=== PATIENT | male | born 1940 | race Caucasian/White ===

== ENCOUNTER → 2017-01-06 | Outpatient (CLI) | payer MEDICARE, OTHER ==
[~2017-01-06] VITALS: Ht 185.4 cm; Wt 111.1 kg
[~2017-01-06] MED LIST: ALFU10TA11 PO; AMOX-355 PO; BUPIVACAINE 0.5% 30 ML (SENSORCAINE) VIAL ONE; FINA5TAB PO; FLUT50DI IH; HYDR-1231 PO; HYDR-3454 PO; INDO25CA PO; LIDOCAINE 1% INJ 20 ML (XYLOCAINE) VIAL ONE; MELO-195 PO; METF-380 PO; METO10TA3 PO; SIMV40TA4 PO; TRIAMCINOLONE ACET (KENALOG-40) 40 MG/ML 1 ML VIAL ONE
--- OUTSIDE RECORDS SUMMARY | 2017-01-06 12:06 | XMS REPORT | Continuity of Care Document ---
Author Author [facility] Organization [facility] Address Unknown Phone Unavailable Care Team Providers Care Conference Reservationist Name Role Phone MAGED COLBERT DO PCP Insurance Providers Payer Name Policy Number Subscriber Name Relationship Wps Medicare [id number] Mahamed Ledezma N 18 Self / Same As Patient Enter Insurance Name [id number] Mahamed Ledezma 18 Self / Same As Patient Advance Directives Directive Response Recorded Date/Time Advance Directives No 04/08/16 9:49am Health Care Power of Medical Secretary Teacher No 04/08/16 9:49am Organ Donor No 04/08/16 9:49am Resuscitation Status Full Code 04/08/16 9:49am Problems Active Problems Medical Problem Onset Date Status Pain, dental Unknown Acute Medications Current Home Medications Medication Dose Units Route Directions Days/Qty Instructions Start Date Simvastatin 40 Mg 40 Mg Oral Daily 01/17/13 Metformin Hcl (Glucophage) 1,000 Mg 1 Each Oral Twice A Day With Meals 01/17/13 Metoclopramide Hcl (Reglan) 10 Mg 1 Each Oral Qid Prn 01/17/13 Meloxicam (Mobic) 15 Mg 1 Each Oral Daily as needed 01/17/13 Indomethacin 25 Mg 25 Mg Oral Daily as needed 01/17/13 Finasteride 5 Mg 5 Mg Oral Daily 01/17/13 Alfuzosin Hcl 10 Mg 10 Mg Oral Daily 01/17/13 Hydrocodone Bit/Acetaminophen 1 Each 1 Each Oral 01/24/13 Amoxicillin/Clavulanate Potassium 1 Each 1 Each Oral Twice A Day Hydrocodone Bit/Acetaminophen 1 Tab 1-2 Tab Oral Every 6 Hours as needed for Pain 05/18/14 Past Home Medications Medication Directions Ordered Status Fluticasone Propionate 50 Mcg Disk.w.dev, 1 Puff Inhalation Twice A Day 01/17 Discontinued Social History Social History Problem Response Recorded Date/Time Alcohol Use Rarely Uses 05/18/2014 7:36pm Recreational Drug Use No 05/18/2014 7:36pm Recent Foreign Travel No 04/08/2016 9:50am Hospital Discharge Instructions No hospital discharge instructions. Plan of Care Discharge Date 04/08/16 10:31am Instructions/Education Provided DR. BALDERRAMA-POST EPIDURAL INST Prescriptions See Medication Section Functional Status No functional status results. Allergies, Adverse Reactions, Alerts No known allergies. Immunizations No immunization records. Vital Signs Acute Vital Signs Vital Response Date/Time Temperature (Fahrenheit) 96.8 degrees F (97.6 - 99.5) 04/08/2016 9:53am Temperature (Calculated Celsius) 36.00848 degrees C (36.4 - 37.5) 04/08/2016 9:53am Temperature Source Tympanic 04/08/2016 9:53am Pulse Rate (adult) 85 bpm (60 - 90) 04/08/2016 10:30am Respiratory Rate 14 bpm (12 - 24) 04/08/2016 10:30am O2 Sat by Pulse Oximetry 96 % (88 - 100) 04/08/2016 10:30am Blood Pressure 117/83 mm Hg 04/08/2016 10:30am Blood Pressure Mean 92 mm Hg 04/08/2016 9:53am Pain Pain Intensity 6 04/08/2016 10:30am Height (Feet) 6 feet 04/08/2016 9:50am Height (Inches) 1.00 inches 04/08/2016 9:50am Height (Calculated Centimeters) 185.093717 cm 04/08/2016 9:50am Weight (Pounds) 240 pounds 04/08/2016 9:50am Weight (Ounces) 0.0 oz 04/08/2016 9:50am Weight (Calculated Grams) 468701.170 gm 04/08/2016 9:50am Weight (Calculated Kilograms) 108.358821 kilograms 04/08/2016 9:50am Calculated BMI 31.7 04/08/2016 9:50am Results Laboratory Results Test Name Result Units Flags Reference Collection Date/Time Result Date/ Time Comments Glucometer 143 MG/DL H 70-110 04/08/2016 10:03am 04/08/2016 10:12am Procedures No known history of procedures. Encounters Encounter Location Arrival/Admit Date Discharge/Depart Date Attending Provider Departed Clinic [facility] 04/08/16 8:55am 04/08/16 10: 31am CALOS BALDERRAMA MD
[2017-01-06 12:38] VITALS: BP 130/83
[2017-01-06 13:13] VITALS: BP 126/81
--- NOTE | 2017-01-06 14:54 | Pain Medicine-Procedure ---
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 PROCEDURE DETAILS: After obtaining an informed consent from the patient, the patient's chart was reviewed. The patient was brought to the procedure room and placed in a prone position. The back was prepped with antiseptic solution, and under fluoroscopic guidance the sacral ala was identified bilaterally. 0.5 cc of 1% Lidocaine to anesthetize the skin. Two 22 gauge 3.5 inch spinal needles were inserted under fluoroscopic guidance until it got in touch with the bone at the sacral ala bilaterally. Then under right oblique fluoroscopy, the junction of the superior articular process and transverse process on the right at L3, L4, and L5 was identified. 0.5 cc of 1% Lidocaine was used to anesthetize the skin. A 22 gauge 3.5 inch spinal needle was inserted through the skin under fluoroscopic guidance until it came in touch with the bone at the junction between the superior articular process and transverse process at each level. The exact steps were repeated for the left side. After needle aspiration,80 mg of kenalog total was injected in equal alliquots followed by 0.5 cc of 0.5% bupivacaine at each. The patient tolerated the procedure well. The needles were flushed and removed, and a Band-Aide was applied. Complications none CALOS BALDERRAMA MD Jan 06, 2017 2:54 pm
== END ==
LOC: CARD 12:03
PROVIDERS: ATTEND Pain Medicine Pain Medicine
DX: M47.816 Spondylosis without myelopathy or radiculopathy, lumbar region (principal); Z79.899 Other long term (current) drug therapy; Z79.84 Long term (current) use of oral hypoglycemic drugs
CPT/HCPCS: 64493; 64494; 64495; 82962

== ENCOUNTER 2017-06-30 16:38 | Emergency (ER) | payer MEDICARE, OTHER ==
[~2017-06-30] VITALS: Ht 185.4 cm; Wt 99.8 kg
[~2017-06-30 16:38] MED LIST changes: -BUPIVACAINE 0.5% 30 ML (SENSORCAINE) VIAL ONE; -LIDOCAINE 1% INJ 20 ML (XYLOCAINE) VIAL ONE; -TRIAMCINOLONE ACET (KENALOG-40) 40 MG/ML 1 ML VIAL ONE
[2017-06-30] MEDS ORDERED: PRAM1.5T23 PO (17:34)
[2017-06-30] MEDS ORDERED: ASPI-808 PO (17:34)
[2017-06-30] MEDS ORDERED: GLIM4TAB PO (17:34)
[2017-06-30] MEDS ORDERED: ALLO300T2 PO (17:34)
[2017-06-30] MEDS ORDERED: LATA1OIL OU (17:34)
--- NOTE | 2017-06-30 18:09 | ED General ---
General Chief Complaint: Psych/Social Disorder Stated Complaint: ANXIOUS Nursing Triage Note: Pt reports medication used for restless shoulder/upper arms has not been working. pt c/o feeling nervous, unable to get comfortable, and lack of sleep. Nursing Sepsis Screen: No Definite Risk Source of Information: Patient, Family Exam Limitations: No Limitations History of Present Illness Time Seen by Provider: 18:06 Initial Comments This 76-year-old male presents with a complaint that his Mirapex is not working. For the last 2 nights he has had marked difficulty sleeping due to his restless muscles. The patient has been using the Mirapex for some time with good results. He has had no associated fever, chills, headache, stiff neck , nausea, vomiting, or diarrhea. The patient would really very much appreciate a sleeping pill for a night or two until he can follow up closely with his doctor on Monday. Allergies and Home Medications Allergies Coded Allergies: No Known Drug Allergies (Unverified , 05/17/10) Home Medications Alfuzosin Hcl 10 Mg Tab.er.24h, 10 MG PO DAILY, (Reported) Allopurinol 300 Mg Tablet, 300 MG PO DAILY, (Reported) Aspirin 325 Mg Tablet, 325 MG PO DAILY, (Reported) Finasteride 5 Mg Tablet, 5 MG PO DAILY, (Reported) Glimepiride 4 Mg Tablet, 4 MG PO BID, (Reported) Latanoprost 1 Gm Oil, 1 DROP OU DAILY, (Reported) Metformin Hcl 1,000 Mg Tablet, 1 EACH PO BID WITH MEALS, (Reported) Pramipexole Di-HCl 1.5 Mg Tab.er.24h, 1.5 MG PO TID, (Reported) Simvastatin 40 Mg Tablet, 40 MG PO DAILY, (Reported) Constitutional: No chills EENTM: No blurred vision Respiratory: No cough Cardiovascular: No chest pain Gastrointestinal: No abdominal pain Genitourinary: no symptoms reported Musculoskeletal: see HPI, muscle twitching Skin: No change in color, No rash Psychiatric/Neurological: No Symptoms Reported Hematologic/Lymphatic: No Symptoms Reported Immunological/Allergic: no symptoms reported Past [place]-Ykovav-Ymeots Hx Patient Social History Alcohol Use: Denies Use Recreational Drug Use: No Smoking Status: Former Smoker Former Smoker, Quit: Jun 06, 1985 Recent Foreign Travel: No Contact w/Someone Who Travel: No Recent Infectious Disease Expo: No Recent Hopitalizations: No Physical Abuse: No Sexual Abuse: No Mistreated: No Fear: No Immunizations Up To Date Tetanus Booster (TDap): More than 5yrs Surgeries History of Surgeries: Yes (Cabg x 4) Surgeries: CABG Respiratory History of Respiratory Disorde: No Cardiovascular History of Cardiac Disorders: Yes Cardiac Disorders: Coronary Artery Disease Neurological History of Neurological Disord: No (Trigeminal Neuralgia ) Reproductive System Hx Reproductive Disorders: No Gastrointestinal History of Gastrointestinal Di: No Musculoskeletal History of Musculoskeletal Dis: No Endocrine History of Endocrine Disorders: Yes Endocrine Disorders: Diabetes, Non-Insulin dep HEENT History of HEENT Disorders: Yes HEENT Disorders: Cataract Loss of Vision: Denies Hearing Impairment: Denies Cancer History of Cancer: No Psychosocial History of Psychiatric Problem: No Suicide Risk Score: 1 Blood Transfusions History of Blood Disorders: No Reviewed Nursing Assessment Reviewed/Agree w Nursing PMH: Yes Physical Exam Vital Signs Vital Sign - Last 12Hours 06/30/17 17:21 Pulse 74 Resp 16 B/P (MAP) 137/84 Pulse Ox 95 O2 Delivery Room Air Capillary Refill : Less Than 3 Seconds General Appearance: No Apparent Distress, WD/WN HEENT: Normal ENT Inspection Neck: Normal Inspection Respiratory: Lungs Clear Cardiovascular: Regular Rate, Rhythm Gastrointestinal: Normal Bowel Sounds Extremity: Normal Capillary Refill, Normal Range of Motion Neurologic/Psychiatric: Alert, Oriented x3, No Motor/Sensory Deficits Skin: Normal Color, Warm/Dry Progress/Results/Core Measures Results/Orders Vital Signs/I&O Vital Sign - Last 12Hours 06/30/17 17:21 Pulse 74 Resp 16 B/P (MAP) 137/84 Pulse Ox 95 O2 Delivery Room Air Blood Pressure Mean: 101 Progress Note : Time: 18:15 Progress Note I discussed with the patient the use of Mirapex. He will continue with the medication for his restless muscles as prescribed over the weekend. I suggested that perhaps for a night or two he might try a sleeping compound. I asked that he began with Tylenol PM. In the event that didn't work I gave the patient a small amount of Ambien. I asked that he follow-up with his primary child day care center worker on Monday. He was invited to return to the emergency department if any further problems or questions. Departure Impression Impression: Primary Impression: Insomnia Qualified Codes: G47.00 - Insomnia, unspecified Disposition: HOME, SELF-CARE Condition: Unchanged Departure-Patient Inst. Decision time for Depature: 18:17 Referrals: MAGED COLBERT DO (PCP/Family) Primary Care Physician Patient Instructions: Insomnia (DC) Add. Discharge Instructions: Continue with her Mirapex. Dry Tylenol PM for sleep. In the event this does not work U may take an Ambien. Follow-up with Dr. Gonzalez on Monday. Return if any problems or questions. All discharge instructions reviewed with patient and /or family. Voiced understanding. DENNY NEIL MD Jun 30, 2017 18:09
[2017-06-30 18:25] VITALS: BP 126/86
--- OUTSIDE RECORDS SUMMARY | 2017-07-03 08:13 | XMS REPORT | Continuity of Care Document ---
Author Author [facility] Organization [facility] Address Unknown Phone Unavailable Allergies Active Description Code Type Severity Reaction Onset Reported/Identified Relationship to Patient Clinical Status Yes No Known Drug Allergies [id number] Drug Allergy Unknown N/ A 05/17/2010 Medications Problems Date Dx Coded Attending Type Code Diagnosis Diagnosed By 10/05/1499 RAYMOND BALDERRAMA APRN Ot L89.892 10/19/2012 Ot 250.00 DIAB ALYSIA WO COMPL, TYPE II OR UNSPEC TY 10/19/2012 Ot 311 DEPRESSIVE DISORDER NEC 10/19/2012 Ot 327.23 OBSTRUCTIVE SLEEP APNEA (ADULT) (PEDIATR 10/19/2012 Ot 327.51 PERIODIC LIMB MOVEMENT DISORDER 10/19/2012 Ot 401.9 HYPERTENSION NOS 01/24/2013 Ot 250.00 DIAB ALYSIA WO COMPL, TYPE II OR UNSPEC TY 01/24/2013 Ot 478.0 HYPERTRPH NASAL TURBINAT 05/18/2014 Ot 525.9 DENTAL DISORDER NOS 06/26/2015 CALOS BALDERRAMA MD Ot 721.3 LUMBOSACRAL SPONDYLOSIS 06/26/2015 CALOS BALDERRAMA MD Ot 724.6 DISORDERS OF SACRUM 06/26/2015 CALOS BALDERRAMA MD Ot V58.69 OTH MED,LT,CURRENT USE 07/10/2015 CALOS BALDERRAMA MD Ot 722.52 LUMB/LUMBOSAC DISC DEGEN 09/24/2015 RAYMOND BALDERRAMA APRN Ot 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, STAGE 2 04/08/2016 Ot 724.2 LUMBAGO 04/08/2016 Ot 724.4 LUMBOSACRAL NEURITIS NOS 04/08/2016 Ot 441.4 ABDOM AORTIC ANEURYSM 04/08/2016 Ot 562.10 DIVERTICULOSIS COLON (W/O MENT OF HEMORR 04/08/2016 Ot 600.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 04/08/2016 Ot 783.1 ABNORMAL WEIGHT GAIN 04/08/2016 Ot 789.09 ABDOMINAL PAIN, OTHER SPECIFIED SITE 04/08/2016 Ot 478.0 HYPERTRPH NASAL TURBINAT 04/08/2016 Ot 780.79 OTH MALAISE FATIGUE 04/08/2016 Ot V72.63 PRE-PROCEDURAL LABORATORY EXAMINATION 04/08/2016 Ot V72.81 [id number] CARDIOVASCULAR 04/08/2016 Ot V72.83 EXAM PRE-OPERATIVE NEC 04/08/2016 Ot V74.8 SCREEN-BACTERIAL DIS NEC 04/08/2016 CRISTINA HICKEY DO Ot 721.3 LUMBOSACRAL SPONDYLOSIS 04/08/2016 CRISTINA HICKEY DO Ot 726.5 ENTHESOPATHY OF HIP 04/08/2016 CALOS BALDERRAMA MD Ot M47.816 SPONDYLOSIS W/O MYELOPATHY OR RADICULOPA 04/08/2016 CALOS BALDERRAMA MD Ot M51.16 INTERVERTEBRAL DISC DISORDERS W RADICULO 04/08/2016 CALOS BALDERRAMA MD Ot M53.3 SACROCOCCYGEAL DISORDERS, NOT ELSEWHERE 04/08/2016 CALOS BALDERRAMA MD Ot Z79.899 OTHER SAUSAGE CANNER (CURRENT) DRUG THERAPY 04/21/2016 CALOS BALDERRAMA MD Ot M47.816 SPONDYLOSIS W/O MYELOPATHY OR RADICULOPA 04/21/2016 CALOS BALDERRAMA MD Ot M51.16 INTERVERTEBRAL DISC DISORDERS W RADICULO 04/21/2016 CALOS BALDERRAMA MD Ot M53.3 SACROCOCCYGEAL DISORDERS, NOT ELSEWHERE 04/21/2016 CALOS BALDERRAMA MD Ot Z79.899 OTHER SAUSAGE CANNER (CURRENT) DRUG THERAPY 05/10/2016 Ot 724.2 LUMBAGO 05/10/2016 Ot 724.4 LUMBOSACRAL NEURITIS NOS 05/10/2016 Ot 441.4 ABDOM AORTIC ANEURYSM 05/10/2016 Ot 562.10 DIVERTICULOSIS COLON (W/O MENT OF HEMORR 05/10/2016 Ot 600.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 05/10/2016 Ot 783.1 ABNORMAL WEIGHT GAIN 05/10/2016 Ot 789.09 ABDOMINAL PAIN, OTHER SPECIFIED SITE 05/10/2016 Ot 478.0 HYPERTRPH NASAL TURBINAT 05/10/2016 Ot 780.79 OTH MALAISE FATIGUE 05/10/2016 Ot V72.63 PRE-PROCEDURAL LABORATORY EXAMINATION 05/10/2016 Ot V72.81 [id number] CARDIOVASCULAR 05/10/2016 Ot V72.83 EXAM PRE-OPERATIVE NEC 05/10/2016 Ot V74.8 SCREEN-BACTERIAL DIS NEC 05/10/2016 EDELMIRA DIAZ CRISTINA Nidhi Ot 721.3 LUMBOSACRAL SPONDYLOSIS 05/10/2016 EDELMIRA DIAZ CRISTINA Terrell Ot 726.5 ENTHESOPATHY OF HIP 05/12/2016 MAGED COLBERT DO S Ot R07.81 PLEURODYNIA 05/16/2016 MAGED COLBERT DO S Ot R07.81 PLEURODYNIA 05/18/2016 MAGED COLBERT DO S Ot R07.81 PLEURODYNIA 06/16/2016 MAGED COLBERT DO S Ot R07.81 PLEURODYNIA 01/06/2017 Ot 441.4 ABDOM AORTIC ANEURYSM 01/06/2017 Ot 562.10 DIVERTICULOSIS COLON (W/O MENT OF HEMORR 01/06/2017 Ot 600.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 01/06/2017 Ot 783.1 ABNORMAL WEIGHT GAIN 01/06/2017 Ot 789.09 ABDOMINAL PAIN, OTHER SPECIFIED SITE 01/06/2017 Ot 478.0 HYPERTRPH NASAL TURBINAT 01/06/2017 Ot 780.79 OTH MALAISE FATIGUE 01/06/2017 Ot V72.63 PRE-PROCEDURAL LABORATORY EXAMINATION 01/06/2017 Ot V72.81 [id number] CARDIOVASCULAR 01/06/2017 Ot V72.83 EXAM PRE-OPERATIVE NEC 01/06/2017 Ot V74.8 SCREEN-BACTERIAL DIS NEC 01/06/2017 EDELMIRA DIAZ CRISTINA Nidhi Ot 721.3 LUMBOSACRAL SPONDYLOSIS 01/06/2017 CRISTINA HICKEY DO Ot 726.5 ENTHESOPATHY OF HIP 01/06/2017 MAGED COLBERT DO S Ot R07.81 PLEURODYNIA 01/09/2017 CALOS BALDERRAMA MD Ot M47.816 SPONDYLOSIS W/O MYELOPATHY OR RADICULOPA 02/21/2017 CALOS BALDERRAMA MD Ot M47.816 SPONDYLOSIS W/O MYELOPATHY OR RADICULOPA 02/21/2017 CALOS BALDERRAMA MD Ot Z79.84 RESIDENTIAL (CURRENT) USE OF ORAL HYPOGLYC 02/21/2017 CALOS BALDERRAMA MD Ot Z79.899 OTHER SAUSAGE CANNER (CURRENT) DRUG THERAPY Procedures Results Test Result Range Capillary blood glucose measurement by glucometer (mass/volume) - 01/06/17 12: 48 Capillary blood glucose measurement by glucometer (mass/volume) 206 mg/dL 70-110 Encounters ACCT No. Visit Date/Time Discharge Status Pt. Type Provider Facility Loc./Unit Complaint [id number] 06/30/2017 16:39:00 2016 18:24:00 DIS Emergency JOLYNN HIUGERA, DENNY Infante [facility] ER ANXIOUS [id number] 01/06/2017 12:03:00 2016 23:59:59 CLS Outpatient CALOS BALDERRAMA MD [facility] CARD M47.816 [id number] 05/10/2016 15:47:00 2015 23:59:59 CLS Outpatient MAGED COLBERT DO [facility] RAD RIB PAIN R [id number] 04/08/2016 08:55:00 2015 10:31:00 DIS Outpatient CALOS BALDERRAMA MD [facility] CARD SPONDYLOSIS [id number] 09/24/2015 12:26:00 2014 15:00:00 DIS Outpatient RAYMOND BALDERRAMA APRN [facility] WOUNDCARE [id number] 08/09/2015 11:17:00 2014 23:59:59 CLS Outpatient DOTTIE SANTIAGO [facility] QUICK [id number] 07/10/2015 08:23:00 2014 09:40:00 DIS Outpatient CALOS BALDERRAMA MD [facility] CARD DDJD LUMBAR [id number] 06/26/2015 10:19:00 2014 11:47:00 DIS Outpatient CALOS BALDERRAMA MD [facility] CARD SIJD [id number] 05/29/2014 08:52:00 2013 23:59:59 CLS Outpatient CRISTINA HICKEY DO [facility] RAD SEVERE LUMBAR SPONDOLOYSIS RIGHT HIP BURSITIS [id number] 05/18/2014 19:29:00 Document Registration [id number] 01/24/2013 08:47:00 Document Registration [id number] 01/17/2013 11:27:00 Document Registration [id number] 11/14/2012 07:11:00 Document Registration [id number] 10/18/2012 21:14:00 Document Registration [id number] 06/20/2011 09:36:00 Document Registration
== END 2017-06-30 18:24 | disposition home or self-care (01) ==
LOC: EDUNIT# 16:38 → ER 16:39
DX: G47.00 Insomnia, unspecified (principal); E11.9 Type 2 diabetes mellitus without complications; I25.10 Atherosclerotic heart disease of native coronary artery without angina pectoris; Z95.1 Presence of aortocoronary bypass graft; Z87.891 Personal history of nicotine dependence; Z79.82 Long term (current) use of aspirin; Z79.84 Long term (current) use of oral hypoglycemic drugs
CPT/HCPCS: 99283

== ENCOUNTER 2017-07-17 09:57 | Emergency (ER) | payer MEDICARE, OTHER ==
[~2017-07-17] VITALS: Ht 185.4 cm; Wt 99.8 kg
[~2017-07-17 09:57] MED LIST changes: +ALLO300T2 PO; +ASPI-808 PO; +GLIM4TAB PO; +LATA1OIL OU; +PRAM1.5T23 PO
[2017-07-17] MEDS ORDERED: TEMA15CA6 PO (10:47)
--- NOTE | 2017-07-17 10:47 | ED Upper Extremity ---
General Chief Complaint: Upper Extremity Stated Complaint: RLS Nursing Triage Note: PT. STATES HE HAS BEEN DX WITH RLS BUT IT OCCURS IN HIS SHOULDERS BILAT. PT. HAS BEEN HAVING SPASMS IN HIS SHOULDERS WHICH KEEP HIM FROM SLEEPING. THIS HAS BEEN GOING ON FOR ABOUT 3 WEEKS. Nursing Sepsis Screen: No Definite Risk Source: patient Exam Limitations: no limitations History of Present Illness Time seen by provider: 10:43 Initial Comments To ER with reports of inability to sleep and recurrent spasms in the shoulders posteriorly bilaterally. This is been ongoing for nearly 2 months now. His physician has him on Mirapex and recently started baclofen a few weeks ago without improvement. Patient was here in the emergency room in the middle of June and given a prescription for Ambien but denies improvement with the Ambien. He denies improvement with the Mirapex or the baclofen. He took one of his 's oxycodone this morning but still denies improvement. He states this is not a pain, it's just a recurrent twitching in his shoulders. The states that he's been weed eating for the [facility] all summer about 3 hours per day 5 days per week and believes that may have something to do with this. Onset: other Severity: moderate Pain/Injury Location: bilateral shoulder Allergies and Home Medications Allergies Coded Allergies: No Known Drug Allergies (Unverified , 05/17/10) Home Medications Alfuzosin HCl 10 Mg Tab.er.24h, 10 MG PO DAILY, (Reported) Aspirin 325 Mg Tablet, 325 MG PO DAILY, (Reported) Finasteride 5 Mg Tablet, 5 MG PO DAILY, (Reported) Glimepiride 4 Mg Tablet, 4 MG PO BID, (Reported) Latanoprost 1 Gm Oil, 1 DROP OU DAILY, (Reported) Metformin HCl 1,000 Mg Tablet, 1,000 MG PO BID, (Reported) Pramipexole Di-HCl 1.5 Mg Tab.er.24h, 1.5 MG PO TID, (Reported) Simvastatin 40 Mg Tablet, 40 MG PO DAILY, (Reported) Temazepam 15 Mg Capsule, 15 MG PO HS PRN for INSOMNIA, #10 Prescribed by: LAMONT JERONIMO on 07/17/17 1047 Constitutional: see HPI EENTM: see HPI Respiratory: no symptoms reported Cardiovascular: no symptoms reported Genitourinary: no symptoms reported Musculoskeletal: see HPI Skin: no symptoms reported Psychiatric/Neurological: No Symptoms Reported Past Wvxirnu-Czozxt-Cjcsxz Hx Patient Social History Alcohol Use: Denies Use Recreational Drug Use: No Smoking Status: Former Smoker Former Smoker, Quit: Jun 06, 1985 2nd Hand Smoke Exposure: No Recent Foreign Travel: No Contact w/Someone Who Travel: No Recent Infectious Disease Expo: No Recent Hopitalizations: No Immunizations Up To Date Tetanus Booster (TDap): More than 5yrs Surgeries History of Surgeries: Yes (Cabg x 4) Surgeries: CABG Respiratory History of Respiratory Disorde: No Cardiovascular History of Cardiac Disorders: Yes Cardiac Disorders: Coronary Artery Disease Neurological History of Neurological Disord: Yes (Trigeminal Neuralgia ) Reproductive System Hx Reproductive Disorders: No Genitourinary History of Genitourinary Disor: No Gastrointestinal History of Gastrointestinal Di: No Musculoskeletal History of Musculoskeletal Dis: Yes Musculoskeletal Disorders: Spasms Endocrine History of Endocrine Disorders: Yes Endocrine Disorders: Diabetes, Non-Insulin dep HEENT History of HEENT Disorders: Yes HEENT Disorders: Cataract Loss of Vision: Denies Hearing Impairment: Hard of Hearing Cancer History of Cancer: No Psychosocial History of Psychiatric Problem: No Integumentary History of Skin or Integumenta: No Blood Transfusions History of Blood Disorders: No Physical Exam Vital Signs Vital Sign - Last 12Hours 07/17/17 10:20 Temp 97.4 Pulse 66 Resp 18 B/P (MAP) 134/91 Pulse Ox 95 Capillary Refill : Less Than 3 Seconds General Appearance: WD/WN, no apparent distress HEENT: PERRL/EOMI, normal ENT inspection Neck: non-tender, full range of motion Cardiovascular: normal peripheral pulses, no murmur Respiratory: normal breath sounds, no respiratory distress, no accessory muscle use Gastrointestinal: normal bowel sounds, non tender, soft Shoulder: normal inspection, non-tender Elbow/Forearm: normal inspection, non-tender Wrist: Yes normal inspection, Yes non-tender Hand: normal inspection, non-tender Neurologic/Psychiatric: alert, normal mood/affect, oriented x 3 Skin: normal color, warm/dry Progress/Results/Core Measures Results/Orders Lab Results Laboratory Tests Test 07/17/17 11:05 Range/Units White Blood Count 6.5 4.3-11.0 10^3/uL Red Blood Count 4.18 L 4.35-5.85 10^6/uL Hemoglobin 14.1 13.3-17.7 G/DL Hematocrit 43 40-54 % Mean Corpuscular Volume 103 H 80-99 FL Mean Corpuscular Hemoglobin 34 25-34 PG Mean Corpuscular Hemoglobin Concent 33 32-36 G/DL Red Cell Distribution Width 14.5 10.0-14.5 % Platelet Count 286 130-400 10^3/uL Mean Platelet Volume 9.8 7.4-10.4 FL Neutrophils (%) (Auto) 64 42-75 % Lymphocytes (%) (Auto) 23 12-44 % Monocytes (%) (Auto) 10 0-12 % Eosinophils (%) (Auto) 3 0-10 % Basophils (%) (Auto) 1 0-10 % Neutrophils # (Auto) 4.1 1.8-7.8 X 10^3 Lymphocytes # (Auto) 1.5 1.0-4.0 X 10^3 Monocytes # (Auto) 0.6 0.0-1.0 X 10^3 Eosinophils # (Auto) 0.2 0.0-0.3 10^3/uL Basophils # (Auto) 0.0 0.0-0.1 10^3/uL Sodium Level 147 H 135-145 MMOL/L Potassium Level 4.4 3.6-5.0 MMOL/L Chloride Level 114 H 98-107 MMOL/L Carbon Dioxide Level 22 21-32 MMOL/L Anion Gap 11 5-14 MMOL/L Blood Urea Nitrogen 24 H 7-18 MG/DL Creatinine 1.41 H 0.60-1.30 MG/DL Estimat Glomerular Filtration Rate 49 BUN/Creatinine Ratio 17 Glucose Level 147 H 70-105 MG/DL Calcium Level 9.9 8.5-10.1 MG/DL Total Bilirubin 0.5 0.1-1.0 MG/DL Aspartate Amino Transf (AST/SGOT) 39 H 5-34 U/L Alanine Aminotransferase (ALT/SGPT) 36 0-55 U/L Alkaline Phosphatase 108 40-136 U/L Total Protein 8.2 6.4-8.2 GM/DL Albumin 4.5 3.2-4.5 GM/DL My Orders Orders - LAMONT JERONIMO BLANKER OPERATOR Cbc With Automated Diff (07/17/17 10:43) Comprehensive Metabolic Panel (07/17/17 10:43) Thyroid Stimulating Hormone (07/17/17 10:43) Free T4 (Free Thyroxine) (07/17/17 10:43) Saline Lock/Iv-Start (07/17/17 11:55) Ns Iv 1000 Ml (Sodium Chloride 0.9%) (07/17/17 12:00) Lactated Ringers (Lr 1000 Ml Iv Solution (07/17/17 12:00) Vital Signs/I&O Vital Sign - Last 12Hours 07/17/17 10:20 Temp 97.4 Pulse 66 Resp 18 B/P (MAP) 134/91 Pulse Ox 95 Blood Pressure Mean: 105 Departure Impression Impression: Primary Impression: Insomnia Additional Impressions: muscle spasm of the shoulders Volume depletion Disposition: 01 HOME, SELF-CARE Condition: Stable Departure-Patient Inst. Decision time for Depature: 10:46 Referrals: MAGED COLBERT DO (PCP/Family) Primary Care Physician Patient Instructions: NO INSTRUCTIONS GIVEN Add. Discharge Instructions: 1. No weed eating for 7 days 2. Medication as directed All discharge instructions reviewed with patient and/or family. Voiced understanding. Scripts Temazepam (Restoril) 15 Mg Capsule 15 MG PO HS Y for INSOMNIA, #10 CAP Prov: LAMONT JERONIMO APRN 07/17/17 Copy Copies To 1: MAGED COLBERT PETER J APRN Jul 17, 2017 10:47
[2017-07-17] MEDS ORDERED: ALFU10TA11 PO (11:19)
[2017-07-17] MEDS ORDERED: METF1000 PO (11:19)
[2017-07-17] MEDS ORDERED: FINA5TAB6 PO (11:19)
[2017-07-17] MEDS ORDERED: SIMV40TA4 PO (11:19)
[2017-07-17 11:30] LABS: RED BLOOD COUNT 4.18 10^6/uL (4.35-5.85); WHITE BLOOD COUNT 6.5 10^3/uL (4.3-11.0)
[2017-07-17 11:31] LABS: BASOPHILS % (AUTO) 1 % (0-10); EOSINOPHILS # (AUTO) 0.2 10^3/uL (0.0-0.3); EOSINOPHILS % (AUTO) 3 % (0-10); LYMPHOCYTES # (AUTO) 1.5 X 10^3 (1.0-4.0); LYMPHOCYTES % (AUTO) 23 % (12-44); MEAN CORPUSCULAR HEMOGLOBIN 34 PG (25-34); MEAN CORPUSCULAR HGB CONC 33 G/DL (32-36); MEAN CORPUSCULAR VOLUME 103 FL (80-99); MEAN PLATELET VOLUME 9.8 FL (7.4-10.4); MONOCYTES # (AUTO) 0.6 X 10^3 (0.0-1.0); MONOCYTES % (AUTO) 10 % (0-12); NEUTROPHILS # (AUTO) 4.1 X 10^3 (1.8-7.8); NEUTROPHILS % (AUTO) 64 % (42-75); PLATELET COUNT 286 10^3/uL (130-400); RED CELL DISTRIBUTION WIDTH 14.5 % (10.0-14.5)
[2017-07-17 11:53] LABS: ALBUMIN 4.5 GM/DL (3.2-4.5); BILIRUBIN,TOTAL 0.5 MG/DL (0.1-1.0); CALCIUM 9.9 MG/DL (8.5-10.1); CREATININE SERUM 1.41 MG/DL (0.60-1.30); POTASSIUM 4.4 MMOL/L (3.6-5.0); TOTAL PROTEIN 8.2 GM/DL (6.4-8.2)
[2017-07-17] MEDS ORDERED: NS IV 1000 ML 1,000 ML IV SCH (12:00)
[2017-07-17] MEDS ORDERED: LACTATED RINGERS 1,000 ML IV SCH (12:00)
[2017-07-17 12:19] LABS: THYROID STIMULATING HORMONE 3.08 UIU/ML (0.35-4.94)
[2017-07-17 12:45] VITALS: BP 134/91
[2017-07-17] MEDS ORDERED: LACTATED RINGERS 1,000 ML IV ONE (12:52)
== END 2017-07-17 12:45 | disposition home or self-care (01) ==
LOC: EDUNIT# 09:57 → ER 10:00
DX: M62.838 Other muscle spasm (principal); E86.9 Volume depletion, unspecified; G47.00 Insomnia, unspecified; E11.9 Type 2 diabetes mellitus without complications; I25.10 Atherosclerotic heart disease of native coronary artery without angina pectoris; G25.81 Restless legs syndrome; Z95.1 Presence of aortocoronary bypass graft; Z87.891 Personal history of nicotine dependence; Z79.82 Long term (current) use of aspirin; Z79.84 Long term (current) use of oral hypoglycemic drugs; Z87.39 Personal history of other diseases of the musculoskeletal system and connective tissue; Z86.69 Personal history of other diseases of the nervous system and sense organs
CPT/HCPCS: 36415; 80053; 84439; 84443; 85025

== ENCOUNTER 2018-03-29 04:55 | Emergency (ER) | payer MEDICARE, OTHER ==
[~2018-03-29] VITALS: Ht 185.4 cm; Wt 113.4 kg
[~2018-03-29 04:55] MED LIST changes: +BACL10TA PO; +CARV3.122 PO; +FINA5TAB6 PO; +FURO-125 PO; +HYDR-3812 PO; +IPRA3AMP INH; +LATA2.5D5 OU; +LORA1TAB PO; +MAGN400T6 PO; +METF10002 PO; +POLY17PO23 PO; +PRAM1.5T5 PO; +SENN-140 PO; +TEMA15CA6 PO; +TIZA4TAB3 PO
--- OUTSIDE RECORDS SUMMARY | 2018-03-29 05:01 | XMS REPORT | Continuity of Care Document ---
Author Author [facility] Organization [facility] Address Unknown Phone Unavailable Allergies Active Description Code Type Severity Reaction Onset Reported/Identified Relationship to Patient Clinical Status Yes No Known Drug Allergies [id number] N/A N/A Yes No Known Drug Allergies [id number] Drug Allergy Unknown N/A 05/17/2010 Medications There is no data. Problems Date Dx Coded Attending Type Code [...] 780.79 OTH MALAISE FATIGUE 04/08/2016 Ot V72.63 PRE- PROCEDURAL LABORATORY EXAMINATION 04/08/2016 Ot V72.81 EXAM-PRE- OPERATIVE CARDIOVASCULAR 04/08/2016 Ot V72.83 EXAM PRE- OPERATIVE NEC 04/08/2016 Ot V74.8 SCREEN- BACTERIAL DIS NEC 04/08/2016 CRISTINA HICKEY DO Ot 721.3 LUMBOSACRAL SPONDYLOSIS 04/08/2016 CRISTINA HICKEY DO Ot 726.5 ENTHESOPATHY OF HIP 04/08/2016 CALOS BALDERRAMA MD Ot M47.816 SPONDYLOSIS W/O MYELOPATHY OR RADICULOPA 04/08/2016 CALOS BALDERRAMA MD Ot M51.16 INTERVERTEBRAL DISC DISORDERS W RADICULO 04/08/2016 CALOS BALDERRAMA MD Ot M53.3 SACROCOCCYGEAL DISORDERS, NOT ELSEWHERE 04/08/2016 CALOS BALDERRAMA MD Ot Z79.899 OTHER PENITENTIARY (CURRENT) DRUG THERAPY 04/21/2016 CALOS BALDERRAMA MD Ot M47.816 SPONDYLOSIS W/O MYELOPATHY OR RADICULOPA 04/21/2016 CALOS BALDERRAMA MD, Ot M51.16 INTERVERTEBRAL DISC DISORDERS W RADICULO 04/21/2016 CALOS BALDERRAMA MD Ot M53.3 SACROCOCCYGEAL DISORDERS, NOT ELSEWHERE 04/21/2016 CALOS BALDERRAMA MD Ot Z79.899 OTHER PENITENTIARY (CURRENT) DRUG THERAPY 05/10/2016 Ot 724.2 LUMBAGO [...] 780.79 OTH MALAISE FATIGUE 05/10/2016 Ot V72.63 PRE- PROCEDURAL LABORATORY EXAMINATION 05/10/2016 Ot V72.81 EXAM-PRE- OPERATIVE CARDIOVASCULAR 05/10/2016 Ot V72.83 EXAM PRE- OPERATIVE NEC 05/10/2016 Ot V74.8 SCREEN- BACTERIAL DIS NEC 05/10/2016 CRISTINA HICKEY DO Ot 721.3 LUMBOSACRAL SPONDYLOSIS 05/10/2016 CRISTINA HICKEY DO Ot 726.5 ENTHESOPATHY OF HIP 05/12/2016 OREMAGED BEATTY DO S Ot R07.81 PLEURODYNIA 05/16/2016 MAGED GUEVARA DO S Ot R07.81 PLEURODYNIA 05/18/2016 MAGED GUEVARA DO S Ot R07.81 PLEURODYNIA 06/16/2016 MAGED GUEVARA DO S Ot R07.81 PLEURODYNIA 01/06/2017 Ot 441.4 ABDOM AORTIC ANEURYSM 01/06/2017 Ot 562.10 DIVERTICULOSIS COLON (W/O MENT OF HEMORR 01/06/2017 Ot 600.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 01/06/2017 Ot 783.1 ABNORMAL WEIGHT GAIN 01/06/2017 Ot 789.09 ABDOMINAL PAIN, OTHER SPECIFIED SITE 01/06/2017 Ot 478.0 HYPERTRPH NASAL TURBINAT 01/06/2017 Ot 780.79 OTH MALAISE FATIGUE 01/06/2017 Ot V72.63 PRE- PROCEDURAL LABORATORY EXAMINATION 01/06/2017 Ot V72.81 EXAM-PRE- OPERATIVE CARDIOVASCULAR 01/06/2017 Ot V72.83 EXAM PRE- OPERATIVE NEC 01/06/2017 Ot V74.8 SCREEN- BACTERIAL DIS NEC 01/06/2017 CRISTINA HICKEY DO Ot 721.3 LUMBOSACRAL SPONDYLOSIS 01/06/2017 CRISTINA HICKEY DO Ot 726.5 ENTHESOPATHY OF HIP 01/06/2017 MAGED GUEVARA DO S Ot R07.81 PLEURODYNIA 01/09/2017 CALOS BALDERRAMA MD Ot M47.816 SPONDYLOSIS W/O MYELOPATHY OR RADICULOPA 02/21/2017 CALOS BALDERRAMA MD Ot M47.816 SPONDYLOSIS W/O MYELOPATHY OR RADICULOPA 02/21/2017 CALOS BALDERRAMA MD Ot Z79.84 PENITENTIARY (CURRENT) USE OF ORAL HYPOGLYC 02/21/2017 CALOS BALDERRAMA MD Ot Z79.899 OTHER PENITENTIARY (CURRENT) DRUG THERAPY 06/30/2017 DENNY NEIL MD Ot E11.9 TYPE 2 DIABETES MELLITUS WITHOUT COMPLIC 06/30/2017 DENNY NEIL MD Ot F41.9 ANXIETY DISORDER, UNSPECIFIED 06/30/2017 DENNY NEIL MD Ot G47.00 INSOMNIA, UNSPECIFIED 06/30/2017 DENNY NEIL MD Ot I25.10 ATHSCL HEART DISEASE OF [place] CORONARY 06/30/2017 DENNY NEIL MD Ot Z79.82 REELER OPERATOR (CURRENT) USE OF ASPIRIN 06/30/2017 DENNY NEIL MD Ot Z79.84 PENITENTIARY (CURRENT) USE OF ORAL HYPOGLYC 06/30/2017 DENNY NEIL MD Ot Z87.891 PERSONAL HISTORY OF NICOTINE DEPENDENCE 06/30/2017 DENNY NEIL MD Ot Z95.1 PRESENCE OF AORTOCORONARY BYPASS GRAFT 07/06/2017 DENNY NEIL MD Ot E11.9 TYPE 2 DIABETES MELLITUS WITHOUT COMPLIC 07/06/2017 DENNY NEIL MD Ot F41.9 ANXIETY DISORDER, UNSPECIFIED 07/06/2017 DENNY NEIL MD Ot G47.00 INSOMNIA, UNSPECIFIED 07/06/2017 DENNY NEIL MD Ot I25.10 ATHSCL HEART DISEASE OF [place] CORONARY 07/06/2017 DENNY NEIL MD Ot Z79.82 PENITENTIARY (CURRENT) USE OF ASPIRIN 07/06/2017 DENNY NEIL MD Ot Z79.84 REELER OPERATOR (CURRENT) USE OF ORAL HYPOGLYC 07/06/2017 DENNY NEIL MD Ot Z87.891 PERSONAL HISTORY OF NICOTINE DEPENDENCE 07/06/2017 DENNY NEIL MD Ot Z95.1 PRESENCE OF AORTOCORONARY BYPASS GRAFT 07/17/2017 LAMONT JERONIMO APRN Ot E11.9 TYPE 2 DIABETES MELLITUS WITHOUT COMPLIC 07/17/2017 LAMONT JERONIMO APRN Ot E86.9 VOLUME DEPLETION, UNSPECIFIED 07/17/2017 LAMONT JERONIMO APRN Ot G25.81 RESTLESS LEGS SYNDROME 07/17/2017 LAMONT JERONIMO APRN Ot G47.00 INSOMNIA, UNSPECIFIED 07/17/2017 LAMONT JERONIMO APRN Ot I25.10 ATHSCL HEART DISEASE OF [place] CORONARY 07/17/2017 LAMONT JERONIMO APRN Ot M62.838 OTHER MUSCLE SPASM 07/17/2017 LAMONT JERONIMO APRN Ot Z79.82 REELER OPERATOR (CURRENT) USE OF ASPIRIN 07/17/2017 LAMONT JERONIMO APRN Ot Z79.84 PENITENTIARY (CURRENT) USE OF ORAL HYPOGLYC 07/17/2017 LAMONT JERONIMO APRN Ot Z86.69 PERSONAL HISTORY OF DIS OF THE NERVOUS S 07/17/2017 LAMNOT JEROINMO APRN Ot Z87.39 PERSONAL HISTORY OF DISEASES OF THE MS S 07/17/2017 LAMONT JERONIMO APRN Ot Z87.891 PERSONAL HISTORY OF NICOTINE DEPENDENCE 07/17/2017 LAMONT JERONIMO APRN Ot Z95.1 PRESENCE OF AORTOCORONARY BYPASS GRAFT Procedures There is no data. Results Test Result Range Capillary blood glucose measurement by glucometer (mass/volume) - 01/06/17 12: 48 Capillary blood glucose measurement by glucometer (mass/volume) 206 mg/dL 70-110 Complete blood count (CBC) with automated white blood cell (WBC) differential - 07/17/17 11:05 Blood leukocytes automated count (number/volume) 6.5 10*3/uL 4.3-11.0 Blood erythrocytes automated count (number/volume) 4.18 10*6/uL 4.35-5.85 Venous blood hemoglobin measurement (mass/volume) 14.1 g/dL 13.3-17.7 Blood hematocrit (volume fraction) 43 % 40-54 Automated erythrocyte mean corpuscular volume 103 [foz_us] 80-99 Automated erythrocyte mean corpuscular hemoglobin (mass per erythrocyte) 34 pg 25-34 Automated erythrocyte mean corpuscular hemoglobin concentration measurement ( mass/volume) 33 g/dL 32-36 Automated erythrocyte distribution width ratio 14.5 % 10.0-14.5 Automated blood platelet count (count/volume) 286 10*3/uL 130-400 Automated blood platelet mean volume measurement 9.8 [foz_us] 7.4-10.4 Automated blood neutrophils/100 leukocytes 64 % 42-75 Automated blood lymphocytes/100 leukocytes 23 % 12-44 Blood monocytes/100 leukocytes 10 % 0-12 Automated blood eosinophils/100 leukocytes 3 % 0-10 Automated blood basophils/100 leukocytes 1 % 0-10 Blood neutrophils automated count (number/volume) 4.1 10*3 1.8-7.8 Blood lymphocytes automated count (number/volume) 1.5 10*3 1.0-4.0 Blood monocytes automated count (number/volume) 0.6 10*3 0.0-1.0 Automated eosinophil count 0.2 10*3/uL 0.0-0.3 Automated blood basophil count (count/volume) 0.0 10*3/uL 0.0-0.1 Comprehensive metabolic panel - 07/17/17 11:05 Serum or plasma sodium measurement (moles/volume) 147 mmol/L 135-145 Serum or plasma potassium measurement (moles/volume) 4.4 mmol/L 3.6-5.0 Serum or plasma chloride measurement (moles/volume) 114 mmol/L 98-107 Carbon dioxide 22 mmol/L 21-32 Serum or plasma anion gap determination (moles/volume) 11 mmol/L 5-14 Serum or plasma urea nitrogen measurement (mass/volume) 24 mg/dL 7-18 Serum or plasma creatinine measurement (mass/volume) 1.41 mg/dL 0.60-1.30 Serum or plasma urea nitrogen/creatinine mass ratio 17 NRG Serum or plasma creatinine measurement with calculation of estimated glomerular filtration rate 49 NRG Serum or plasma glucose measurement (mass/volume) 147 mg/dL 70-105 Serum or plasma calcium measurement (mass/volume) 9.9 mg/dL 8.5-10.1 Serum or plasma total bilirubin measurement (mass/volume) 0.5 mg/dL 0.1-1.0 Serum or plasma alkaline phosphatase measurement (enzymatic activity/volume) 108 U/L 40-136 Serum or plasma aspartate aminotransferase measurement (enzymatic activity/ volume) 39 U/L 5-34 Serum or plasma alanine aminotransferase measurement (enzymatic activity/volume ) 36 U/L 0-55 Serum or plasma protein measurement (mass/volume) 8.2 g/dL 6.4-8.2 Serum or plasma albumin measurement (mass/volume) 4.5 g/dL 3.2-4.5 THYROID STIMULATING HORMONE - 07/17/17 11:05 THYROID STIMULATING HORMONE 3.08 u[iU]/mL 0.35-4.94 Serum or plasma thyroxine (T4) free measurement (mass/volume) - 07/17/17 11:05 Serum or plasma thyroxine (T4) free measurement (mass/volume) 0.92 ng/dL 0.70-1.48 Complete blood count (CBC) with automated white blood cell (WBC) differential - 03/20/18 08:45 Blood leukocytes automated count (number/volume) 11.2 10*3/uL 4.3-11.0 Blood erythrocytes automated count (number/volume) 3.56 10*6/uL 4.35-5.85 Venous blood hemoglobin measurement (mass/volume) 11.7 g/dL 13.3-17.7 Blood hematocrit (volume fraction) 35 % 40-54 Automated erythrocyte mean corpuscular volume 99 [foz_us] 80-99 Automated erythrocyte mean corpuscular hemoglobin (mass per erythrocyte) 33 pg 25-34 Automated erythrocyte mean corpuscular hemoglobin concentration measurement ( mass/volume) 33 g/dL 32-36 Automated erythrocyte distribution width ratio 14.8 % 10.0-14.5 Automated blood platelet count (count/volume) 422 10*3/uL 130-400 Automated blood platelet mean volume measurement 9.3 [foz_us] 7.4-10.4 Automated blood neutrophils/100 leukocytes 79 % 42-75 Automated blood lymphocytes/100 leukocytes 7 % 12-44 Blood monocytes/100 leukocytes 13 % 0-12 Automated blood eosinophils/100 leukocytes 0 % 0-10 Automated blood basophils/100 leukocytes 0 % 0-10 Blood neutrophils automated count (number/volume) 8.9 10*3 1.8-7.8 Blood lymphocytes automated count (number/volume) 0.8 10*3 1.0-4.0 Blood monocytes automated count (number/volume) 1.5 10*3 0.0-1.0 Automated eosinophil count 0.1 10*3/uL 0.0-0.3 Automated blood basophil count (count/volume) 0.0 10*3/uL 0.0-0.1 PT panel in platelet poor plasma by coagulation assay - 03/20/18 08:45 Prothrombin time (PT) in platelet poor plasma by coagulation assay 14.9 s 12.2-14.7 INR in platelet poor plasma or blood by coagulation assay 1.2 0.8-1.4 Activated partial thromboplastin time (aPTT) in platelet poor plasma bycoagulation assay - 03/20/18 08:45 Activated partial thromboplastin time (aPTT) in platelet poor plasma bycoagulation assay 39 s 24-35 Comprehensive metabolic panel - 03/20/18 08:45 Serum or plasma sodium measurement (moles/volume) 138 mmol/L 135-145 Serum or plasma potassium measurement (moles/volume) 5.2 mmol/L 3.6-5.0 Serum or plasma chloride measurement (moles/volume) 105 mmol/L 98-107 Carbon dioxide 20 mmol/L 21-32 Serum or plasma anion gap determination (moles/volume) 13 mmol/L 5-14 Serum or plasma urea nitrogen measurement (mass/volume) 22 mg/dL 7-18 Serum or plasma creatinine measurement (mass/volume) 1.49 mg/dL 0.60-1.30 Serum or plasma urea nitrogen/creatinine mass ratio 15 NRG Serum or plasma creatinine measurement with calculation of estimated glomerular filtration rate 46 NRG Serum or plasma glucose measurement (mass/volume) 173 mg/dL 70-105 Serum or plasma calcium measurement (mass/volume) 9.7 mg/dL 8.5-10.1 Serum or plasma total bilirubin measurement (mass/volume) 0.3 mg/dL 0.1-1.0 Serum or plasma alkaline phosphatase measurement (enzymatic activity/volume) 106 U/L 40-136 Serum or plasma aspartate aminotransferase measurement (enzymatic activity/ volume) 27 U/L 5-34 Serum or plasma alanine aminotransferase measurement (enzymatic activity/volume ) 23 U/L 0-55 Serum or plasma protein measurement (mass/volume) 7.7 g/dL 6.4-8.2 Serum or plasma albumin measurement (mass/volume) 3.5 g/dL 3.2-4.5 Magnesium - 03/20/18 08:45 Magnesium 1.4 mg/dL 1.8-2.4 Serum or plasma troponin i.cardiac measurement (mass/volume) - 03/20/18 08:45 Serum or plasma troponin i.cardiac measurement (mass/volume) < ng/ mL <0.30 Blood manual differential performed detection - 03/20/18 08:45 Blood monocytes/100 leukocytes 17 % NRG Manual blood segmented neutrophils/100 leukocytes 74 % NRG Blood band neutrophils/100 leukocytes 2 % NRG Manual blood lymphocytes/100 leukocytes 7 % NRG Manual eosinophils/100 leukocytes in nose 0 % NRG Manual blood basophils/100 leukocytes 0 % NRG Blood erythrocyte morphology finding identification NORMAL NRG Myoglobin, serum - 03/20/18 08:45 Myoglobin, serum 122.0 ng/mL 10.0-92.0 Serum or plasma lithium measurement (moles/volume) - 03/20/18 08:45 BNP level 993.0 pg/mL <100.0 Capillary blood glucose measurement by glucometer (mass/volume) - 03/20/18 13: 18 Capillary blood glucose measurement by glucometer (mass/volume) 147 mg/dL 70-110 Capillary blood glucose measurement by glucometer (mass/volume) - 03/20/18 16: 15 Capillary blood glucose measurement by glucometer (mass/volume) 210 mg/dL 70-110 Capillary blood glucose measurement by glucometer (mass/volume) - 03/20/18 20: 39 Capillary blood glucose measurement by glucometer (mass/volume) 336 mg/dL 70-110 Capillary blood glucose measurement by glucometer (mass/volume) - 03/21/18 05: 04 Capillary blood glucose measurement by glucometer (mass/volume) 162 mg/dL 70-110 Complete blood count (CBC) with automated white blood cell (WBC) differential - 03/21/18 05:32 Blood leukocytes automated count (number/volume) 10.4 10*3/uL 4.3-11.0 Blood erythrocytes automated count (number/volume) 3.16 10*6/uL 4.35-5.85 Venous blood hemoglobin measurement (mass/volume) 10.2 g/dL 13.3-17.7 Blood hematocrit (volume fraction) 32 % 40-54 Automated erythrocyte mean corpuscular volume 100 [foz_us] 80-99 Automated erythrocyte mean corpuscular hemoglobin (mass per erythrocyte) 32 pg 25-34 Automated erythrocyte mean corpuscular hemoglobin concentration measurement ( mass/volume) 32 g/dL 32-36 Automated erythrocyte distribution width ratio 14.9 % 10.0-14.5 Automated blood platelet count (count/volume) 403 10*3/uL 130-400 Automated blood platelet mean volume measurement 9.0 [foz_us] 7.4-10.4 Automated blood neutrophils/100 leukocytes 73 % 42-75 Automated blood lymphocytes/100 leukocytes 12 % 12-44 Blood monocytes/100 leukocytes 14 % 0-12 Automated blood eosinophils/100 leukocytes 1 % 0-10 Automated blood basophils/100 leukocytes 0 % 0-10 Blood neutrophils automated count (number/volume) 7.6 10*3 1.8-7.8 Blood lymphocytes automated count (number/volume) 1.3 10*3 1.0-4.0 Blood monocytes automated count (number/volume) 1.4 10*3 0.0-1.0 Automated eosinophil count 0.1 10*3/uL 0.0-0.3 Automated blood basophil count (count/volume) 0.0 10*3/uL 0.0-0.1 Comprehensive metabolic panel - 03/21/18 05:32 Serum or plasma sodium measurement (moles/volume) 137 mmol/L 135-145 Serum or plasma potassium measurement (moles/volume) 4.4 mmol/L 3.6-5.0 Serum or plasma chloride measurement (moles/volume) 103 mmol/L 98-107 Carbon dioxide 21 mmol/L 21-32 Serum or plasma anion gap determination (moles/volume) 13 mmol/L 5-14 Serum or plasma urea nitrogen measurement (mass/volume) 24 mg/dL 7-18 Serum or plasma creatinine measurement (mass/volume) 1.60 mg/dL 0.60-1.30 Serum or plasma urea nitrogen/creatinine mass ratio 15 NRG Serum or plasma creatinine measurement with calculation of estimated glomerular filtration rate 42 NRG Serum or plasma glucose measurement (mass/volume) 157 mg/dL 70-105 Serum or plasma calcium measurement (mass/volume) 9.1 mg/dL 8.5-10.1 Serum or plasma total bilirubin measurement (mass/volume) 0.4 mg/dL 0.1-1.0 Serum or plasma alkaline phosphatase measurement (enzymatic activity/volume) 97 U/L 40-136 Serum or plasma aspartate aminotransferase measurement (enzymatic activity/ volume) 29 U/L 5-34 Serum or plasma alanine aminotransferase measurement (enzymatic activity/volume ) 25 U/L 0-55 Serum or plasma protein measurement (mass/volume) 6.9 g/dL 6.4-8.2 Serum or plasma albumin measurement (mass/volume) 3.2 g/dL 3.2-4.5 Magnesium - 03/21/18 05:32 Magnesium 1.7 mg/dL 1.8-2.4 Lipid 1996 panel - 03/21/18 05:32 Serum or plasma triglyceride measurement (mass/volume) 56 mg/dL <150 Serum or plasma cholesterol measurement (mass/volume) 94 mg/dL < 200 Serum or plasma cholesterol in HDL measurement (mass/volume) 30 mg/ dL 40-60 Cholesterol in LDL [mass/volume] in serum or plasma by direct assay 47 mg/dL 1-129 Serum or plasma cholesterol in VLDL measurement (mass/volume) 11 mg/ dL 5-40 Capillary blood glucose measurement by glucometer (mass/volume) - 03/21/18 10: 52 Capillary blood glucose measurement by glucometer (mass/volume) 221 mg/dL 70-110 Capillary blood glucose measurement by glucometer (mass/volume) - 03/21/18 15: 37 Capillary blood glucose measurement by glucometer (mass/volume) 122 mg/dL 70-110 Capillary blood glucose measurement by glucometer (mass/volume) - 03/21/18 20: 18 Capillary blood glucose measurement by glucometer (mass/volume) 213 mg/dL 70-110 Capillary blood glucose measurement by glucometer (mass/volume) - 03/22/18 04: 48 Capillary blood glucose measurement by glucometer (mass/volume) 171 mg/dL 70-110 Whole blood basic metabolic panel - 03/22/18 05:25 Serum or plasma sodium measurement (moles/volume) 139 mmol/L 135-145 Serum or plasma potassium measurement (moles/volume) 4.7 mmol/L 3.6-5.0 Serum or plasma chloride measurement (moles/volume) 104 mmol/L 98-107 Carbon dioxide 23 mmol/L 21-32 Serum or plasma anion gap determination (moles/volume) 12 mmol/L 5-14 Serum or plasma urea nitrogen measurement (mass/volume) 26 mg/dL 7-18 Serum or plasma creatinine measurement (mass/volume) 1.38 mg/dL 0.60-1.30 Serum or plasma urea nitrogen/creatinine mass ratio 19 NRG Serum or plasma creatinine measurement with calculation of estimated glomerular filtration rate 50 NRG Serum or plasma glucose measurement (mass/volume) 171 mg/dL 70-105 Serum or plasma calcium measurement (mass/volume) 9.4 mg/dL 8.5-10.1 Magnesium - 03/22/18 05:25 Magnesium 2.0 mg/dL 1.8-2.4 Serum or plasma lithium measurement (moles/volume) - 03/22/18 05:25 BNP level 883.5 pg/mL <100.0 Capillary blood glucose measurement by glucometer (mass/volume) - 03/22/18 10: 55 Capillary blood glucose measurement by glucometer (mass/volume) 269 mg/dL 70-110 Capillary blood glucose measurement by glucometer (mass/volume) - 03/22/18 16: 36 Capillary blood glucose measurement by glucometer (mass/volume) 108 mg/dL 70-110 Capillary blood glucose measurement by glucometer (mass/volume) - 03/22/18 20: 22 Capillary blood glucose measurement by glucometer (mass/volume) 193 mg/dL 70-110 Capillary blood glucose measurement by glucometer (mass/volume) - 03/23/18 05: 11 Capillary blood glucose measurement by glucometer (mass/volume) 201 mg/dL 70-110 Capillary blood glucose measurement by glucometer (mass/volume) - 03/23/18 06: 52 Capillary blood glucose measurement by glucometer (mass/volume) 195 mg/dL 70-110 Capillary blood glucose measurement by glucometer (mass/volume) - 03/23/18 11: 20 Capillary blood glucose measurement by glucometer (mass/volume) 215 mg/dL 70-110 Encounters ACCT No. Visit Date/Time Discharge Status Pt. Type Provider Facility Loc./Unit Complaint [id number] 07/17/2017 10:00:00 07/17/2017 12:45:00 DIS Emergency LAMONT JERONIMO APRN [facility] ER RLS [id number] 06/30/2017 16:39:00 06/30/2017 18:24:00 DIS Emergency DENNY NEIL MD [facility] ER ANXIOUS [id number] 01/06/2017 12:03:00 01/06/2017 23:59:59 CLS Outpatient CALOS BALDERRAMA MD [facility] CARD M47.816 [id number] 05/10/2016 15:47:00 05/10/2016 23:59:59 CLS Outpatient MAGED GUEVARA DO S [facility] RAD RIB PAIN R [id number] 04/08/2016 08:55:00 04/08/2016 10:31:00 DIS Outpatient CALOS BALDERRAMA MD [facility] CARD SPONDYLOSIS [id number] 09/24/2015 12:26:00 09/24/2015 15:00:00 DIS Outpatient RAYMOND BALDERRAMA APRN [facility] WOUNDCARE [id number] 08/09/2015 11:17:00 08/09/2015 23:59:59 CLS Outpatient DOTTIE SANTIAGO COMPUTER AIDED DESIGN OPERATOR [facility] QUICK [id number] 07/10/2015 08:23:00 07/10/2015 09:40:00 DIS Outpatient CALOS BALDERRAMA MD [facility] CARD DDJD LUMBAR [id number] 06/26/2015 10:19:00 06/26/2015 11:47:00 DIS Outpatient CALOS BALDERRAMA MD [facility] CARD SIJD [id number] 05/29/2014 08:52:00 05/29/2014 23:59:59 CLS Outpatient EDELMIRA CRISTINA Nidhi [facility] RAD SEVERE LUMBAR SPONDOLOYSIS RIGHT HIP BURSITIS [id number] 03/20/2018 10:03:00 ACT Inpatient SALLYAMAYA DIAZ MAGED S [facility] 4TH CHF,HYPOXIA,BACK PAIN [id number] 05/18/2014 19:29:00 Document Registration [id number] 01/24/2013 08:47:00 Document Registration [id number] 01/17/2013 11:27:00 Document Registration [id number] 11/14/2012 07:11:00 Document Registration [id number] 10/18/2012 21:14:00 Document Registration [id number] 06/20/2011 09:36:00 Document Registration [id number] 08/10/2015 02:19:42 ACT Document Registration [id number] 03/09/2018 07:58:45 Document Registration [id number] 03/05/2018 13:08:15 Document Registration [id number] 01/17/2018 15:20:24 Document Registration [id number] 12/21/2017 07:54:33 Document Registration [id number] 12/05/2017 08:55:06 Document Registration [id number] 12/01/2017 08:29:21 Document Registration 12/201610/18/2017 14:26:06 10/18/2017 23:59:59 [facility] Outpatient Maged Guevara
[2018-03-29] MEDS ORDERED: TIZA4TAB3 (05:14)
[2018-03-29] MEDS ORDERED: LORA1TAB (05:14)
--- NOTE | 2018-03-29 05:22 | ED Back Pain ---
General Stated Complaint: BACK PAIN Source of Information: Patient, Spouse ( DOES MOST OF TALKING) Exam Limitations: Other (PT IS HARD OF HEARING) (HERMELINDA ANDERSON DO) History of Present Illness Date Seen by Provider: March 29, 2018 Time Seen by Provider: 05:03 Initial Comments PT ARRIVES VIA POV FROM HOME C/O CHRONIC LOWER BACK PAIN PT WAS HOSPITALIZED LAST WEEK FOR THIS PROBLEM FROM 03/20-03/23. PT ALSO HAD CHF AND WAS STARTED ON HOME O2 PT STATES HE HAS BEEN ON HYDROCODONE 5/325 1 PILL A DAY FOR THIS CHRONIC PAIN ISSUE. STATES THAT HIS DOSE WAS INCREASED TO 2 PILLS A DAY WHEN HE WAS DISMISSED FROM THE HOSPITAL. LAST DOSE WAS AT 2200 LAST PM. STATES THE MEDICATION HELPS FOR AN HOUR OR TWO AND THEN HIS PAIN RETURNS NO RADIATION OF PAIN NO PARESTHESIAS OR MOTOR DEFICITS NO CHANGE IN BLADDER FUNCTION. HAS BEEN CONSTIPATED WITH THE PAIN MEDICATIONS. NO NEW INJURY TO HIS BACK HAS NOT BEEN EATING MUCH LATELY DUE TO PAIN PT STATES HE WAS SUPPOSED TO HAVE BACK SURGERY AT [facility] 4 STATES YESTERDAY, BUT STATES THEY "BACKED OUT BECAUSE OF HIS BAD HEALTH" AND PT HAS BEEN REFERRED TO , BUT CANNOT GET IN TO SEE ANYONE THERE UNTIL June. PT STATES HE "CAN'T WAIT THAT LONG" PT GETS HOME HEALTH ON MONDAYS, WEDNESDAYS AND FRIDAYS. PT HAS LONG HISTORY OF NON-COMPLIANCE PT HAS AN APPOINTMENT TODAY WITH STORE SALES MANAGER AT DR. GUEVARA'S OFFICE FOR THIS PROBLEM (HERMELINDA ANDERSON DO) Allergies and Home Medications Allergies Coded Allergies: No Known Drug Allergies (Unverified , 05/17/10) Home Medications Alfuzosin HCl 10 Mg Tab.er.24h, 10 MG PO DAILY, (Reported) Aspirin 325 Mg Tablet, 325 MG PO DAILY, (Reported) Baclofen 10 Mg Tablet, 20 MG PO HS Prescribed by: MAGED GUEVARA on 03/23/18 1045 Finasteride 5 Mg Tablet, 5 MG PO DAILY, (Reported) Furosemide 20 Mg Tablet, 20 MG PO DAILY Prescribed by: MAGED GUEVARA on 03/23/18 1045 Hydrocodone Bit/Acetaminophen 1 Tab Tab, 1 EACH PO Q4H PRN for PAIN-MODERATE Prescribed by: MELISSA FREEMAN on 03/29/18 1146 Hydrocodone/Acetaminophen 1 Each Tablet, 0.5 MG PO BID PRN for PAIN-MODERATE, ( Reported) Ipratropium/Albuterol Sulfate 3 Ml Ampul.neb, 3 ML INH RTQ8HR Prescribed by: MAGED GUEVARA on 03/23/18 1045 Latanoprost 2.5 Ml Drops, 1 DROP OU HS, (Reported) Magnesium Oxide 400 Mg Tablet, 400 MG PO BIDPC Prescribed by: MAGED GUEVARA on 03/23/18 1045 Metformin HCl 1,000 Mg Tablet, 1,000 MG PO BID, (Reported) Polyethylene Glycol 3350 17 Gm Powd.pack, 17 GM PO BID Prescribed by: MAGED GUEVARA on 03/23/18 1045 Pramipexole Di-HCl 1.5 Mg Tablet, 1.5 MG PO TID PRN for RESTLESSNESS, (Reported) Sennosides 8.6 Mg Tablet, 8.6 MG PO TID PRN for CONSTIPATION-5TH LINE, (Reported ) Patient Home Medication List Home Medication List Reviewed: Yes (HERMELINDA ANDERSON DO) Constitutional: no symptoms reported Respiratory: no symptoms reported Cardiovascular: no symptoms reported Gastrointestinal: No abdominal pain; constipation, loss of appetite; No nausea , No vomiting Genitourinary: no symptoms reported Musculoskeletal: see HPI, back pain Psychiatric/Neurological: No Symptoms Reported (HERMELINDA ANDERSON DO) Past Pvxoycn-Ftbuho-Ioapat Hx Patient Social History Alcohol Use: Past History (HISTORY OF ABUSE, NO RECENT USE) Recreational Drug Use: No Smoking Status: Former Smoker Type Used: Cigarettes Former Smoker, Quit: Jun 06, 1985 2nd Hand Smoke Exposure: No Recent Foreign Travel: No Contact w/Someone Who Travel: No Recent Hopitalizations: No (HERMELINDA ANDERSON DO) Immunizations Up To Date Tetanus Booster (TDap): More than 5yrs Date of Pneumonia Vaccine: Aug 20, 2016 (HERMELINDA ANDERSON DO) Past Medical History Surgeries: Yes (4 VESSEL CABG; AAA REPAIR WITH STENT) Cardiac, CABG, Vascular Surgery Respiratory: No Currently Using CPAP: No Cardiac: Yes (AAA STENT) Aneurysm, Coronary Artery Disease, High Cholesterol, Hypertension Neurological: Yes (TRIGEMINAL NEURALGIA) Reproductive Disorders: No Genitourinary: Yes (FREQUENCY ) Gastrointestinal: Yes (CONSTIPATION-CURRENT) Musculoskeletal: Yes Chronic Back Pain, Spasms Endocrine: Yes Diabetes, Non-Insulin dep HEENT: Yes Cataract, Glaucoma Loss of Vision: Denies Hearing Impairment: Hard of Hearing Cancer: No Psychosocial: No Integumentary: No Blood Disorders: No (HERMELINDA ANDERSON DO) Family Medical History Patient reports no known family medical history. Physical Exam Vital Signs Vital Signs - First Documented 03/29/18 05:02 Temp 97.0 Pulse 97 Resp 17 B/P (MAP) 131/79 (96) Pulse Ox 93 O2 Delivery Nasal Cannula O2 Flow Rate 3.50 (MELISSA FREEMAN MD) Vital Signs Capillary Refill : (HERMELINDA ANDERSON ) General Appearance: Anxious, Mild Distress (DYSPNEIC--PT RECENTLY STARTED ON HOME O2, AND ARRIVES WITHOUT PORTABLE OXYGEN) Neck: Normal Inspection Cardiovascular: Regular Rate, Rhythm, No Edema Respiratory: Other (DYSPNEIC) Gastrointestinal: Non Tender, Soft Extremity: Non Tender, No Calf Tenderness, No Pedal Edema, Other (PT FREELY MOVES LEGS, AND IS LAYING RECLINED WITH KNEES AND HIPS FLEXED AND LEFT ANKLE CROSSED OVER RIGHT KNEE WITHOUT ANY EVIDENCE OF DISCOMFORT) Neurologic/Psychiatric: Alert, Oriented x3, No Motor/Sensory Deficits, instructional material director II- XII Norm as Tested, Other (ANXIOUS) Skin: Normal Color, Warm/Dry (HERMELINDA ANDERSON ) Progress/Results/Core Measures Results/Orders Lab Results Laboratory Tests Test 03/29/18 05:24 03/29/18 06:41 Range/Units White Blood Count 10.1 4.3-11.0 10^3/uL Red Blood Count 3.68 L 4.35-5.85 10^6/uL Hemoglobin 11.9 L 13.3-17.7 G/DL Hematocrit 37 L 40-54 % Mean Corpuscular Volume 99 80-99 FL Mean Corpuscular Hemoglobin 32 25-34 PG Mean Corpuscular Hemoglobin Concent 33 32-36 G/DL Red Cell Distribution Width 15.0 H 10.0-14.5 % Platelet Count 618 H 130-400 10^3/uL Mean Platelet Volume 8.8 7.4-10.4 FL Neutrophils (%) (Auto) 78 H 42-75 % Lymphocytes (%) (Auto) 9 L 12-44 % Monocytes (%) (Auto) 12 0-12 % Eosinophils (%) (Auto) 1 0-10 % Basophils (%) (Auto) 0 0-10 % Neutrophils # (Auto) 7.9 H 1.8-7.8 X 10^3 Lymphocytes # (Auto) 0.9 L 1.0-4.0 X 10^3 Monocytes # (Auto) 1.3 H 0.0-1.0 X 10^3 Eosinophils # (Auto) 0.1 0.0-0.3 10^3/uL Basophils # (Auto) 0.0 0.0-0.1 10^3/uL Prothrombin Time 15.3 H 12.2-14.7 SEC INR Comment 1.2 0.8-1.4 Activated Partial Thromboplast Time 40 H 24-35 SEC Sodium Level 136 135-145 MMOL/L Potassium Level 4.2 3.6-5.0 MMOL/L Chloride Level 98 98-107 MMOL/L Carbon Dioxide Level 23 21-32 MMOL/L Anion Gap 15 H 5-14 MMOL/L Blood Urea Nitrogen 18 7-18 MG/DL Creatinine 1.36 H 0.60-1.30 MG/DL Estimat Glomerular Filtration Rate 51 BUN/Creatinine Ratio 13 Glucose Level 154 H 70-105 MG/DL Calcium Level 9.9 8.5-10.1 MG/DL Magnesium Level 1.7 L 1.8-2.4 MG/DL Total Bilirubin 0.5 0.1-1.0 MG/DL Aspartate Amino Transf (AST/SGOT) 19 5-34 U/L Alanine Aminotransferase (ALT/SGPT) 22 0-55 U/L Alkaline Phosphatase 112 40-136 U/L Troponin I < 0.30 <0.30 NG/ML B-Type Natriuretic Peptide 870.9 H <100.0 PG/ML Total Protein 8.2 6.4-8.2 GM/DL Albumin 3.6 3.2-4.5 GM/DL Urine Color YELLOW Urine Clarity CLEAR Urine pH 6 5-9 Urine Specific [place] 1.015 L 1.016-1.022 Urine Protein 2+ H NEGATIVE Urine Glucose (UA) NEGATIVE NEGATIVE Urine Ketones 2+ H NEGATIVE Urine Nitrite NEGATIVE NEGATIVE Urine Bilirubin NEGATIVE NEGATIVE Urine Urobilinogen NORMAL NORMAL MG/DL Urine Leukocyte Esterase NEGATIVE NEGATIVE Urine RBC (Auto) NEGATIVE NEGATIVE Urine RBC NONE /HPF Urine WBC RARE /HPF Urine Squamous Epithelial Cells 0-2 /HPF Urine Crystals NONE /LPF Urine Bacteria NEGATIVE /HPF Urine Casts NONE /LPF Urine Mucus SMALL H /LPF Urine Culture Indicated NO (MELISSA FREEMAN MD) My Orders Orders - MELISSA FREEMAN MD Aorta Sono [id number] (03/29/18 07:36) Ct Angio Abdomen/Pelv W (03/29/18 09:25) Saline Lock/Iv-Start (03/29/18 09:25) Ns Iv 500 Ml (Sodium Chloride 0.9%) (03/29/18 09:25) Iohexol Injection (Omnipaque 350 Mg/Ml 1 (03/29/18 09:45) Ns (Ivpb) (Sodium Chloride 0.9%) (03/29/18 09:45) (MELISSA FREEMAN MD) Medications Given in ED Current Medications Medications Dose Ordered Sig/Juan Route Start Time Stop Time Status Last Admin Dose Admin Iohexol 100 ml ONCE ONCE IV 03/29/18 09:45 03/29/18 09:46 DC 03/29/18 09:49 100 ML Orphenadrine Citrate 60 mg ONCE ONCE IV 03/29/18 05:15 03/29/18 05:16 DC 03/29/18 05:41 60 MG Sodium Chloride 250 ml ONCE ONCE IV 03/29/18 09:45 03/29/18 09:46 DC 03/29/18 09:49 80 ML Sodium Chloride 500 ml @ 0 mls/hr Q0M ONCE IV 03/29/18 09:25 03/29/18 09:27 DC 03/29/18 10:17 500 MLS/HR (MELISSA FREEMAN MD) Vital Signs/I&O 03/29/18 03/29/18 05:02 05:02 Temp 97.0 Pulse 97 Resp 17 B/P (MAP) 131/79 (96) Pulse Ox 93 88 O2 Delivery Nasal Cannula Room Air O2 Flow Rate 3.50 (MELISSA FREEMAN MD) Progress Progress Note : Progress Note O2 SAT LOW 86% ON ROOM AIR--UP TO MID 90'S ON 3L/NC AND PT MUCH LESS DYSPNEIC PAIN IMPROVED WITH MEDICATIONS, BUT IS NOT GONE. 0730--CARE TURNED OVER TO DR. FREEMAN. HAVE REVIEWED CT REPORTS AND WILL ORDER ULTRASOUND OF AORTA (HERMELINDA ANDERSON DO) Progress Note : Progress Note 0930: I have seen and evaluated the patient. Patient did receive morphine 5 mg IV and this is helped significantly. I discussed the case with Dr. Guevara. Ultrasound results are equivocal in that ultrasound did not adequately view the aorta. Given the patient's history and risk factors, we will get CT angiogram of the abdomen and pelvis to evaluate the aorta better. Patient and family understand the risk. We will try to minimize contrast and we will give normal saline 500 mL bolus. 1140: CT is complete and results are pending. Pain is still controlled with the 5 mg of morphine received earlier. In discussion with Dr. Guevara earlier, patient was supposed to be taken hydrocodone 5 mg tablets 1 every 4 hours as needed for pain and currently he is taking a half a tablet twice a day. This is not working. I do believe the full dose every 4 hours we'll work effectively as this is a equivalent to the morphine dosing given. This was discussed with the patient and family verbalize understanding. Monitor patient pending CT results. 1230: CT results noted. No findings concerning for aneurysmal leak. I do believe this is related to back pain. Patient is much more comfortable with this. He is still feeling better but the pain is starting to return. We will repeat a dose of morphine IV and I did write prescription to carry him through until at least next Monday for the hydrocodone. Discharged home with return precautions. Patient verbalize understanding instructions and agreement with plan. (MELISSA FREEMAN MD) Initial ECG Impression Date: March 29, 2018 Initial ECG Impression Time: 05:37 Initial ECG Rate: 96 Initial ECG Rhythm: Normal Sinus (RBBB AND LAFB) Initial ECG Comparisson: Unchanged (HERMELINDA ANDERSON DO) Diagnostic Imaging Diagonstic Imaging: CT Plain Films/CT/US/NM/MRI: abdomen, pelvis Comments NAME: MAHAMED CLARK [facility] REC#: [id number] PT STATUS: REG ER : 1940 PHYSICIAN: HERMELINDA ANDERSON DO ADMIT DATE: 03/29/18/ER Signed Date of Exam: 03/29/18 CT ABDOMEN/PELVIS WO PROCEDURE: CT abdomen and pelvis without contrast. TECHNIQUE: Multiple contiguous axial images were obtained through the abdomen and pelvis without the use of intravenous contrast. INDICATION: Chronic back pain. COMPARISON: Comparison is made with the prior examination dated 11/14/2012. FINDINGS: There is cardiomegaly and coronary artery calcification. There is some bibasilar atelectasis and pneumonitis. There is a small hiatal hernia. The liver is normal in size without focal lesions. The gallbladder is unremarkable. There is no biliary ductal dilatation. The spleen is normal. The pancreas and adrenal glands are unremarkable. There are bilateral renal cysts. There is a small nonobstructing left renal calculus. There is a stent graft in the infrarenal abdominal aorta. There is some nonspecific inflammatory induration in the retroperitoneal fat around the aorta. Bowel gas pattern is nonspecific. There is a moderate amount of obtained fecal material likely reflecting some degree of constipation. There is no pelvic mass, adenopathy or free fluid. Bladder is normal. There is no ascites. There is no free air. There are no focal inflammatory changes. There are degenerative changes in the spine. IMPRESSION: Cardiomegaly and coronary artery calcifications. Patchy bibasilar atelectasis and/or pneumonitis. Small hiatal hernia. Bilateral renal cysts with a tiny nonobstructing left renal calculus. Nonspecific inflammatory induration in the retroperitoneal fat around the abdominal aorta. Possibility of infection or leak cannot be entirely excluded. Recommend clinical correlation. Degenerative changes in the spine. Dictated by: Dictated on workstation # [id number] Dict: 03/29/18709 Trans: 03/29/18751 Interpreted by: JOSE ALFREDO CAMPOS MD Electronically signed by: JOSE ALFREDO CAMPOS MD 03/29/18 0752 Diagonstic Imaging: CT Plain Films/CT/US/NM/MRI: other Comments NAME: MAHAMED CLARK Sundar [facility] REC#: [id number] PT STATUS: REG ER : 1940 PHYSICIAN: HERMELINDA ANDERSON DO ADMIT DATE: 03/29/18/ER Signed Date of Exam: 03/29/18 CT THORACIC/LUMBAR SPINE WO INDICATION: Back pain. TECHNIQUE: Multiple contiguous axial images were obtained through the thoracic and lumbar spine without the use of intravenous contrast. Sagittal and coronal reformations were then performed. FINDINGS: The alignment of the thoracic and lumbar spine is grossly normal. The vertebral body heights are well-maintained. There is no spondylolysis or spondylolisthesis. No fractures are identified. There is some prominent osteophytosis along the inferior aspect of the thoracic spine. There is multilevel degenerative disc disease in the lumbar spine as well as some lower lumbar hypertrophic degenerative facet disease. There is some bibasilar atelectasis and pneumonitis. There is no pleural or pericardial fluid. There is a cyst in the left kidney. There is also small nonobstructing stone in the left kidney. There is a cyst in the right kidney. There is a stent graft in the infrarenal abdominal aorta. IMPRESSION: Moderate thoracolumbar spondylosis and multilevel degenerative disc disease in lumbar spine without acute fracture or traumatic subluxation. Bilateral renal cysts and nonobstructing left renal calculus. Bibasilar atelectasis and pneumonitis. Dictated by: Dictated on workstation # [id number] Dict: 03/29/18705 Trans: 03/29/18751 Interpreted by: JOSE ALFREDO CAMPOS MD Electronically signed by: JOSE ALFREDO CAMPOS MD 03/29/18 075 Diagonstic Imaging: Xray Plain Films/CT/US/NM/MRI: chest Comments NAME: MAHAMED CLARK [facility] REC#: [id number] PT STATUS: REG ER : 1940 PHYSICIAN: HERMELINDA ANDERSON DO ADMIT DATE: 03/29/18/ER Signed Date of Exam: 03/29/18 CHEST 1 VIEW, AP/PA ONLY INDICATION: Chronic back pain. Comparison made to prior examination 03/20/2018. FINDINGS: There is cardiomegaly. There has been previous median sternotomy and coronary bypass graft. There is mild venous congestion. Some left basilar atelectasis and pneumonitis. No pleural effusion or pneumothorax. Mediastinum is unremarkable. IMPRESSION: Cardiomegaly and mild venous congestion with some left basilar atelectasis and pneumonitis. Dictated by: Dictated on workstation # [id number] Dict: 03/29/18705 Trans: 03/29/18752 Interpreted by: JOSE ALFREDO CAMPOS MD Electronically signed by: JOSE ALFREDO CAMPOS MD 03/29/18 0753 Diagonstic Imaging: CT, Ultrasound Plain Films/CT/US/NM/MRI: abdomen Comments NAME: MAHAMED CLARK [facility] REC#: [id number] PT STATUS: REG ER : 1940 PHYSICIAN: MELISSA FREEMAN MD ADMIT DATE: 03/29/18/ER Draft Date of Exam:03/29/18 AORTA SONO [id number] INDICATION: History of infrarenal abdominal aortic aneurysm, status post repair. Patient now complains of back pain for 2 weeks. FINDINGS: The proximal, mid and distal abdominal aorta is completely obscured by overlying bowel gas. Aorta is nonvisualized. Iliacs are nonvisualized. IMPRESSION: Aorta is not visualized due to complete obscuration by bowel gas. Dictated on workstation # [id number] Dict: 03/29/18825 Trans: 03/29/18 0852 [facility] [id number] Interpreted by: CHELLY JARRELL MD Electronically signed by: Diagonstic Imaging: CT Plain Films/CT/US/NM/MRI: abdomen, pelvis Comments [facility]IA [facility] [place], [place] NAME: MAHAMED CLARK [facility] REC#: [id number] PT STATUS: REG ER : 1940 PHYSICIAN: MELISSA FREEMAN MD ADMIT DATE: 03/29/18/ER Draft Date of Exam:03/29/18 CT ANGIO ABDOMEN/PELV W INDICATION: Back pain, history of abdominal aortic aneurysm repair. Study interpreted in correlation with nonenhanced study of earlier this same date as well as an exam preoperatively performed 11/14/2012. Pre-dynamic and post-IV contrast enhanced CT angio abdomen and pelvis performed with 3-D reconstructions. FINDINGS: The infrarenal abdominal aortic aneurysmal sac measured 5.1 cm maximal transverse diameter unchanged. There were no findings of endoleak. There is no contrast extravasation. No evidence for aneurysmal rupture. Some very mild induration of the periaortic retroperitoneal fat which may reflect some residua of its recent placement. There is opacification of the renal arteries bilaterally. The stenting or grafting of the bilateral common iliacs which appears to be separable from the infrarenal aortic stent graft itself. There is post therapeutic occlusion of the takeoff of the MAUREEN. Celiac and superior mesenteric as well as their primary branches were all widely patent. The kidneys well-perfused, unobstructed and normal aside from cortical cysts. There is ectasia of bilateral common iliacs with the vessel opposition to the graft itself. Right measured 2.3, left 2.1 cm. Hypogastric branches are calcified but nonaneurysmal. The external iliacs and common femorals atherosclerotic, patent and nonacute. No periaortic or abdominal pelvic fluid collection. No evidence for an abscess. There is no inguinal canal fluid collection or hematoma. Very minimal likely post therapeutic induration of the fat along the left retroperitoneum in the pelvis. There are degenerative changes to the spine. Liver, spleen, adrenals, pancreas unremarkable. There is no gallstone. There is colonic constipation without impaction or obstruction. There is noninflamed diverticulosis. IMPRESSION: Very mild induration of the periaortic and left pelvic retroperitoneal fat probably on a recent postsurgical basis. No fluid collection or abscess. No extraluminal gas. No evidence for a vascular rupture or endoleak. No findings of end organ ischemia. Constipation, noninflamed diverticulosis and benign renal cysts. Degenerative spinal changes with no acute osseous pathology. ER doctor notified that the reports is on line Dictated on workstation # [id number] Dict: 03/29/18 1120 Trans: 03/29/18 1221 [facility] [id number] Interpreted by: SABIHA GONZALEZ Electronically signed by: (MELISSA FREEMAN MD) Departure Impression Primary Impression: Lumbar radiculopathy Disposition: HOME, SELF-CARE Condition: Stable Departure-Patient Inst. Decision time for Depature: 11:44 (MELISSA FREEMAN MD) Referrals: MAGED GUEVARA DO (PCP/Family) Primary Care Physician Patient Instructions: Radiculopathy (DC), Low Back Pain (DC) Add. Discharge Instructions: You may take hydrocodone 5/325 mg tablet 1 every 4 hours as needed for pain. A prescription for this was given to you I will cover for a few more days until he can follow up with your doctor. Either keep appointment today or follow-up with your doctor on Monday. Return for worse pain, fever, vomiting, weakness, breathing problems or other concerns as needed. Your aorta remains enlarged but does not appear to be the problem currently. If you have any worsening, this would be a consideration and you should return immediately. Scripts Hydrocodone Bit/Acetaminophen (Hydrocodone/Acetaminophen 5/325mg Tablet) 1 Tab Tab 1 EACH PO Q4H PRN for PAIN-MODERATE, #24 TAB 0 Refills Prov: MELISSA FREEMAN MD 03/29/18 Copy Copies To 1: MAGED GUEVARA LISA K DO March 29, 2018 05:22 MELISSA FREEMAN MD March 29, 2018 08:56
[2018-03-29 05:31] LABS: BASOPHILS % (AUTO) 0 % (0-10); EOSINOPHILS # (AUTO) 0.1 10^3/uL (0.0-0.3); EOSINOPHILS % (AUTO) 1 % (0-10); HEMATOCRIT 37 % (40-54); HEMOGLOBIN 11.9 G/DL (13.3-17.7); LYMPHOCYTES # (AUTO) 0.9 X 10^3 (1.0-4.0); LYMPHOCYTES % (AUTO) 9 % (12-44); MEAN CORPUSCULAR HEMOGLOBIN 32 PG (25-34); MEAN CORPUSCULAR HGB CONC 33 G/DL (32-36); MEAN CORPUSCULAR VOLUME 99 FL (80-99); MEAN PLATELET VOLUME 8.8 FL (7.4-10.4); MONOCYTES # (AUTO) 1.3 X 10^3 (0.0-1.0); MONOCYTES % (AUTO) 12 % (0-12); NEUTROPHILS # (AUTO) 7.9 X 10^3 (1.8-7.8); NEUTROPHILS % (AUTO) 78 % (42-75); PLATELET COUNT 618 10^3/uL (130-400); RED BLOOD COUNT 3.68 10^6/uL (4.35-5.85); WHITE BLOOD COUNT 10.1 10^3/uL (4.3-11.0)
[2018-03-29] MEDS: morphine INJ 10 MG/ML 1ML (SYR OR VIAL) IVP STA ×3 (05:41→12:47)
[2018-03-29] MEDS: methylPREDNISolone 125 MG (Solu-MEDROL) VIAL IV STA (05:41)
[2018-03-29] MEDS: ORPHENADRINE 60 MG/2 ML (NORFLEX) AMP IV ONE (05:41)
[2018-03-29 05:44] LABS: INR 1.2 (0.8-1.4); PROTHROMBIN TIME PATIENT 15.3 SEC (12.2-14.7)
[2018-03-29 05:59] LABS: ALANINE AMINOTRANSFERASE 22 U/L (0-55); ALBUMIN 3.6 GM/DL (3.2-4.5); ALKALINE PHOSPHATASE 112 U/L (40-136); BILIRUBIN,TOTAL 0.5 MG/DL (0.1-1.0); BUN/CREATININE RATIO 13; CALCIUM 9.9 MG/DL (8.5-10.1); CARBON DIOXIDE 23 MMOL/L (21-32); CHLORIDE 98 MMOL/L (98-107); CREATININE SERUM 1.36 MG/DL (0.60-1.30); GFR ESTIMATED 51; GLUCOSE 154 MG/DL (70-105); MAGNESIUM 1.7 MG/DL (1.8-2.4); POTASSIUM 4.2 MMOL/L (3.6-5.0); SODIUM 136 MMOL/L (135-145); TOTAL PROTEIN 8.2 GM/DL (6.4-8.2)
[2018-03-29 06:50] LABS: BILIRUBIN,URINE NEGATIVE (NEGATIVE); CLARITY,URINE CLEAR; COLOR,URINE YELLOW; GLUCOSE, URINE (UA) NEGATIVE (NEGATIVE); KETONES,URINE 2+ (NEGATIVE); LEUKOCYTE ESTERASE ,URINE NEGATIVE (NEGATIVE); NITRITE,URINE NEGATIVE (NEGATIVE); PH,URINE 6 (5-9); PROTEIN,URINE 2+ (NEGATIVE); UROBILINOGEN,URINE NORMAL (NORMAL)
[2018-03-29 07:10] LABS: BACTERIA,URINE NEGATIVE /HPF; SQUAMOUS EPITHELIAL CELL,UR 0-2 /HPF; WBC,URINE RARE /HPF
--- NOTE | 2018-03-29 07:22 | Diagnostic Imaging Report ---
INDICATION: Back pain. TECHNIQUE: Multiple contiguous axial images were obtained through the thoracic and lumbar spine without the use of intravenous contrast. Sagittal and coronal reformations were then performed. FINDINGS: The alignment of the thoracic and lumbar spine is grossly normal. The vertebral body heights are well-maintained. There is no spondylolysis or spondylolisthesis. No fractures are identified. There is some prominent osteophytosis along the inferior aspect of the thoracic spine. There is multilevel degenerative disc disease in the lumbar spine as well as some lower lumbar hypertrophic degenerative facet disease. There is some bibasilar atelectasis and pneumonitis. There is no pleural or pericardial fluid. There is a cyst in the left kidney. There is also small nonobstructing stone in the left kidney. There is a cyst in the right kidney. There is a stent graft in the infrarenal abdominal aorta. IMPRESSION: Moderate thoracolumbar spondylosis and multilevel degenerative disc disease in lumbar spine without acute fracture or traumatic subluxation. Bilateral renal cysts and nonobstructing left renal calculus. Bibasilar atelectasis and pneumonitis. Dictated by: Dictated on workstation # [id number]
--- NOTE | 2018-03-29 07:30 | Diagnostic Imaging Report ---
PROCEDURE: CT abdomen and pelvis without contrast. TECHNIQUE: Multiple contiguous axial images were obtained through the abdomen and pelvis without the use of intravenous contrast. INDICATION: Chronic back pain. COMPARISON: Comparison is made with the prior examination dated 11/14/2012. FINDINGS: There is cardiomegaly and coronary artery calcification. There is some bibasilar atelectasis and pneumonitis. There is a small hiatal hernia. The liver is normal in size without focal lesions. The gallbladder is unremarkable. There is no biliary ductal dilatation. The spleen is normal. The pancreas and adrenal glands are unremarkable. There are bilateral renal cysts. There is a small nonobstructing left renal calculus. There is a stent graft in the infrarenal abdominal aorta. There is some nonspecific inflammatory induration in the retroperitoneal fat around the aorta. Bowel gas pattern is nonspecific. There is a moderate amount of obtained fecal material likely reflecting some degree of constipation. There is no pelvic mass, adenopathy or free fluid. Bladder is normal. There is no ascites. There is no free air. There are no focal inflammatory changes. There are degenerative changes in the spine. IMPRESSION: Cardiomegaly and coronary artery calcifications. Patchy bibasilar atelectasis and/or pneumonitis. Small hiatal hernia. Bilateral renal cysts with a tiny nonobstructing left renal calculus. Nonspecific inflammatory induration in the retroperitoneal fat around the abdominal aorta. Possibility of infection or leak cannot be entirely excluded. Recommend clinical correlation. Degenerative changes in the spine. Dictated by: Dictated on workstation # [id number]
--- NOTE | 2018-03-29 07:53 | Diagnostic Imaging Report ---
INDICATION: Chronic back pain. Comparison made to prior examination 03/20/2018. FINDINGS: There is cardiomegaly. There has been previous median sternotomy and coronary bypass graft. There is mild venous congestion. Some left basilar atelectasis and pneumonitis. No pleural effusion or pneumothorax. Mediastinum is unremarkable. IMPRESSION: Cardiomegaly and mild venous congestion with some left basilar atelectasis and pneumonitis. Dictated by: Dictated on workstation # [id number]
--- NOTE | 2018-03-29 08:53 | Diagnostic Imaging Report ---
INDICATION: History of infrarenal abdominal aortic aneurysm, status post repair. Patient now complains of back pain for 2 weeks. FINDINGS: The proximal, mid and distal abdominal aorta is completely obscured by overlying bowel gas. Aorta is nonvisualized. Iliacs are nonvisualized. IMPRESSION: Aorta is not visualized due to complete obscuration by bowel gas. Dictated by: Dictated on workstation # [id number]
[2018-03-29] MEDS: IOHEXOL 350 MG/ML 100 ML (OMNIPAQUE 350) VIAL IV ONE (09:49)
[2018-03-29] MEDS: NS 250 ML (IVPB) BAG IV ONE (09:49)
[2018-03-29] MEDS: NS IV 500 ML 500 ML IV ONE (10:17)
[2018-03-29] MEDS ORDERED: ACHD5005 PO (11:46)
--- NOTE | 2018-03-29 12:10 | Diagnostic Imaging Report ---
INDICATION: Back pain, history of abdominal aortic aneurysm repair. Study interpreted in correlation with nonenhanced study of earlier this same date as well as an exam preoperatively performed 11/14/2012. Pre-dynamic and post-IV contrast enhanced CT angio abdomen and pelvis performed with 3-D reconstructions. FINDINGS: The infrarenal abdominal aortic aneurysmal sac measured 5.1 cm maximal transverse diameter unchanged. There were no findings of endoleak. There is no contrast extravasation. No evidence for aneurysmal rupture. Some very mild induration of the periaortic retroperitoneal fat which may reflect some residua of its recent placement. There is opacification of the renal arteries bilaterally. The stenting or grafting of the bilateral common iliacs which appears to be separable from the infrarenal aortic stent graft itself. There is post therapeutic occlusion of the takeoff of the MAUREEN. Celiac and superior mesenteric as well as their primary branches were all widely patent. The kidneys well-perfused, unobstructed and normal aside from cortical cysts. There is ectasia of bilateral common iliacs with the vessel opposition to the graft itself. Right measured 2.3, left 2.1 cm. Hypogastric branches are calcified but nonaneurysmal. The external iliacs and common femorals atherosclerotic, patent and nonacute. No periaortic or abdominal pelvic fluid collection. No evidence for an abscess. There is no inguinal canal fluid collection or hematoma. Very minimal likely post therapeutic induration of the fat along the left retroperitoneum in the pelvis. There are degenerative changes to the spine. Liver, spleen, adrenals, pancreas unremarkable. There is no gallstone. There is colonic constipation without impaction or obstruction. There is noninflamed diverticulosis. IMPRESSION: Very mild induration of the periaortic and left pelvic retroperitoneal fat probably on a recent postsurgical basis. No fluid collection or abscess. No extraluminal gas. No evidence for a vascular rupture or endoleak. No findings of end organ ischemia. Constipation, noninflamed diverticulosis and benign renal cysts. Degenerative spinal changes with no acute osseous pathology. ER doctor notified that the reports is on line Dictated by: Dictated on workstation # [id number]
[2018-03-29 12:57] VITALS: BP 132/85
== END 2018-03-29 12:57 | disposition home or self-care (01) ==
LOC: EDUNIT# 04:55 → ER 04:57
DX: M54.16 Radiculopathy, lumbar region (principal); I25.10 Atherosclerotic heart disease of native coronary artery without angina pectoris; E78.00 Pure hypercholesterolemia, unspecified; I10 Essential (primary) hypertension; E11.9 Type 2 diabetes mellitus without complications; Z87.19 Personal history of other diseases of the digestive system; Z79.82 Long term (current) use of aspirin; Z79.84 Long term (current) use of oral hypoglycemic drugs; Z87.891 Personal history of nicotine dependence; Z95.1 Presence of aortocoronary bypass graft; Z95.5 Presence of coronary angioplasty implant and graft
CPT/HCPCS: 36415; 71045; 72128; 72131; 74174; 74176; 76775; 80053; 81000; 83735; 83880; 84484; 85025; 85610; 85730; 93005; 93041; 96361; 96372; 96374; 96375; 96376

== ENCOUNTER 2018-04-16 12:47 | Outpatient (CLI) | payer MEDICARE, OTHER ==
[~2018-04-16] VITALS: Ht 185.4 cm; Wt 103.2 kg
[~2018-04-16 12:47] MED LIST changes: +ACHD5005 PO; +LORA1TAB; +TIZA4TAB3
[2018-04-16 13:06] VITALS: BP 89/52
== END 2018-04-16 13:31 | disposition home or self-care (01) ==
LOC: PREOP 12:47
PROVIDERS: ATTEND Orthopaedic Surgery
DX: Z01.818 Encounter for other preprocedural examination (principal); Z11.2 Encounter for screening for other bacterial diseases; M48.061 Spinal stenosis, lumbar region without neurogenic claudication
CPT/HCPCS: 87081

== ENCOUNTER 2018-04-23 10:39 | Inpatient (IN) | payer MEDICARE, OTHER ==
[~2018-04-23] VITALS: Ht 185.4 cm; Wt 110.8 kg
[2018-04-23 10:42] VITALS: BP 108/74
[2018-04-23] MEDS ORDERED: ceFAZolin 2 GM IV Premixed 50 ML IV ONE (10:45)
--- OUTSIDE RECORDS SUMMARY | 2018-04-23 10:45 | XMS REPORT | Continuity of Care Document ---
Author Author [facility] Organization [facility] Address Unknown Phone Unavailable Allergies Active Description Code Type Severity Reaction Onset Reported/Identified Relationship to Patient Clinical Status Yes No Known Drug Allergies [id number] N/A N/A Yes No Known Drug Allergies [id number] Drug Allergy Unknown N/A 05/17/2010 Medications There [...] DO Ot 726.5 ENTHESOPATHY OF HIP 05/12/2016 ORESAIDA BEATTY DO S Ot R07.81 PLEURODYNIA 05/16/2016 SAIDA GUEVARA DO S Ot R07.81 PLEURODYNIA 05/18/2016 SAIDA GUEVARA DO S Ot R07.81 PLEURODYNIA 06/16/2016 SAIDA GUEVARA DO S Ot R07.81 PLEURODYNIA 01/06/2017 [...] DO Ot 726.5 ENTHESOPATHY OF HIP 01/06/2017 SAIDA GUEVARA DO S Ot R07.81 PLEURODYNIA 01/09/2017 [...] MD Ot I25.10 ATHSCL HEART DISEASE OF [place] CORONARY 06/30/2017 DENNY NEIL MD Ot Z79.82 RETAIL PRODUCT DEMO SPECIALIST (CURRENT) USE OF ASPIRIN 06/30/2017 DENNY NEIL [...] MD Ot I25.10 ATHSCL HEART DISEASE OF [place] CORONARY 07/06/2017 DENNY NEIL MD Ot Z79.82 PENITENTIARY (CURRENT) USE OF ASPIRIN 07/06/2017 DENNY NEIL MD Ot Z79.84 RETAIL PRODUCT DEMO SPECIALIST (CURRENT) USE OF ORAL HYPOGLYC 07/06/2017 DENNY [...] APRN Ot I25.10 ATHSCL HEART DISEASE OF [place] CORONARY 07/17/2017 LAMONT JERONIMO APRN Ot M62.838 OTHER MUSCLE SPASM 07/17/2017 LAMONT JERONIMO APRN Ot Z79.82 RETAIL PRODUCT DEMO SPECIALIST (CURRENT) USE OF ASPIRIN 07/17/2017 LAMONT JERONIMO APRN Ot Z79.84 PENITENTIARY (CURRENT) USE OF ORAL HYPOGLYC 07/17/2017 LAMONT JERONIMO APRN Ot Z86.69 PERSONAL HISTORY OF DIS OF THE NERVOUS S 07/17/2017 LAMONT JERONIMO APRN Ot Z87.39 PERSONAL HISTORY OF DISEASES OF THE MS S 07/17/2017 LAMONT JERONIMO APRN Ot Z87.891 PERSONAL HISTORY OF NICOTINE DEPENDENCE 07/17/2017 LAMONT JERONIMO APRN Ot Z95.1 PRESENCE OF AORTOCORONARY BYPASS GRAFT 03/23/2018 GISSELLE GUEVARA DOQUELINE S Ot E11.22 TYPE 2 DIABETES MELLITUS W DIABETIC GM 03/23/2018 GISSELLE GUEVARA DOQUELINE S Ot E11.9 TYPE 2 DIABETES MELLITUS WITHOUT COMPLIC 03/23/2018 GISSELLE GUEVARA DOQUELINE S Ot E83.42 HYPOMAGNESEMIA 03/23/2018 FILEMON DIAZ SAIDA S Ot E87.5 HYPERKALEMIA 03/23/2018 GISSELLE GUEVARA DOQUELINE S Ot 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 03/23/2018 GISSELLE GUEVARA DOQUELINE S Ot H91.90 UNSPECIFIED HEARING LOSS, UNSPECIFIED EA 03/23/2018 FILEMON DIAZ SAIDA S Ot I10 ESSENTIAL (PRIMARY) HYPERTENSION 03/23/2018 VIRAJNDAMAYA DIAZ SAIDA S Ot I12.9 HYPERTENSIVE CHRONIC KIDNEY DISEASE W ST 03/23/2018 FILEMON DIAZ SAIDA S Ot I25.10 ATHSCL HEART DISEASE OF [place] CORONARY 03/23/2018 GISSELLE GUEVARA DOQUELINE S Ot I49.3 VENTRICULAR PREMATURE DEPOLARIZATION 03/23/2018 GISSELLE GUEVARA DOQUELINE S Ot J81.0 ACUTE PULMONARY EDEMA 03/23/2018 GISSELLE GUEVARA DOQUELINE S Ot K59.03 DRUG INDUCED CONSTIPATION 03/23/2018 VIRAJJOANAMAYA SAIDA S Ot M25.511 PAIN IN RIGHT SHOULDER 03/23/2018 VIRAJROGERIO DIAZ SAIDA S Ot M25.512 PAIN IN LEFT SHOULDER 03/23/2018 SALLYAMAYA DIANA DIAZLINE S Ot M62.830 MUSCLE SPASM OF BACK 03/23/2018 DIANA GUEVARA DOLINE S Ot N18.9 CHRONIC KIDNEY DISEASE, UNSPECIFIED 03/23/2018 DIANA GUEVARA DOLINE S Ot N28.9 DISORDER OF KIDNEY AND URETER, UNSPECIFI 03/23/2018 DIANA GUEVARA DOLINE S Ot R06.03 ACUTE RESPIRATORY DISTRESS 03/23/2018 DIANA GUEVARA DOLINE S Ot R09.02 HYPOXEMIA 03/23/2018 DIANA GUEVARA DOLINE S Ot R35.0 FREQUENCY OF MICTURITION 03/23/2018 DIANA GUEVARA DOLINE S Ot R45.1 RESTLESSNESS AND AGITATION 03/23/2018 DIANA GUEVARA DOLINE S Ot T40.2X5A ADVERSE EFFECT OF OTHER OPIOIDS, INITIAL 03/23/2018 DIANA GUEVARA DOLINE S Ot Z79.84 PENITENTIARY (CURRENT) USE OF ORAL HYPOGLYC 03/23/2018 SAIDA GUEVARA DO S Ot Z91.19 PATIENT'S NONCOMPLIANCE W [facility] TR 03/23/2018 SAIDA GUEVARA DO S Ot Z95.1 PRESENCE OF AORTOCORONARY BYPASS GRAFT 03/28/2018 SAIDA GUEVRAA DO S Ot E11.22 TYPE 2 DIABETES MELLITUS W DIABETIC GM 03/28/2018 DIANA GUEVARA DOLINE S Ot E83.42 HYPOMAGNESEMIA 03/28/2018 DIANA GUEVARA DOLINE S Ot E87.5 HYPERKALEMIA 03/28/2018 SAIDA GUEVARA DO S Ot 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 03/28/2018 SAIDA GUEVARA DO S Ot I12.9 HYPERTENSIVE CHRONIC KIDNEY DISEASE W ST 03/28/2018 DIANA GUEVARA DOLINE S Ot I25.10 ATHSCL HEART DISEASE OF [place] CORONARY 03/28/2018 SAIDA GUEVARA DO S Ot I49.3 VENTRICULAR PREMATURE DEPOLARIZATION 03/28/2018 FILEMON DIAZ SAIDA S Ot J81.0 ACUTE PULMONARY EDEMA 03/28/2018 VIRAJROGERIO DIAZDIANASAIDA S Ot K59.03 DRUG INDUCED CONSTIPATION 03/28/2018 SALLYAMAYA DIAZDIANASAIDA S Ot M25.511 PAIN IN RIGHT SHOULDER 03/28/2018 VIRAJROGERIO DIAZDIANASAIDA S Ot M25.512 PAIN IN LEFT SHOULDER 03/28/2018 VIRAJROGERIO DIAZDIANASAIDA S Ot M62.830 MUSCLE SPASM OF BACK 03/28/2018 SALLYAMAYA DIANA DIAZLINE S Ot N18.9 CHRONIC KIDNEY DISEASE, UNSPECIFIED 03/28/2018 SALLYAMAYA DIAZDIANASAIDA S Ot N28.9 DISORDER OF KIDNEY AND URETER, UNSPECIFI 03/28/2018 SALLYAMAYA DIAZDIANASAIDA S Ot R06.03 ACUTE RESPIRATORY DISTRESS 03/28/2018 SALLYAMAYA DIAZDIANASAIDA S Ot R09.02 HYPOXEMIA 03/28/2018 SALLYAMAYA DIAZDIANASAIDA S Ot R35.0 FREQUENCY OF MICTURITION 03/28/2018 DIANA GUEVARA DOLINE S Ot R45.1 RESTLESSNESS AND AGITATION 03/28/2018 SALLYAMAYA DIANA DIAZLINE S Ot T40.2X5A ADVERSE EFFECT OF OTHER OPIOIDS, INITIAL 03/28/2018 DIANA GUEVARA DOLINE S Ot Z79.84 RETAIL PRODUCT DEMO SPECIALIST (CURRENT) USE OF ORAL HYPOGLYC 03/28/2018 DIANA GUEVARA DOLINE S Ot Z91.19 PATIENT'S NONCOMPLIANCE W [facility] TR 03/28/2018 SAIDA GUEVARA DO S Ot Z95.1 PRESENCE OF AORTOCORONARY BYPASS GRAFT 03/28/2018 DIANA GUEVARA DOLINE S Ot E11.22 TYPE 2 DIABETES MELLITUS W DIABETIC GM 03/28/2018 DIANA GUEVARA DOLINE S Ot E83.42 HYPOMAGNESEMIA 03/28/2018 DIANA GUEVARA DOLINE S Ot E87.5 HYPERKALEMIA 03/28/2018 DIANA GUEVARA DOLINE S Ot 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 03/28/2018 DIANA GUEVARA DOLINE S Ot I12.9 HYPERTENSIVE CHRONIC KIDNEY DISEASE W ST 03/28/2018 DIANA GUEVARA DOLINE S Ot I25.10 ATHSCL HEART DISEASE OF [place] CORONARY 03/28/2018 DIANA GUEVARA DOLINE S Ot I49.3 VENTRICULAR PREMATURE DEPOLARIZATION 03/28/2018 DIANA GUEVARA DOLINE S Ot J81.0 ACUTE PULMONARY EDEMA 03/28/2018 DIANA GUEVARA DOLINE S Ot K59.03 DRUG INDUCED CONSTIPATION 03/28/2018 DIANA GUEVARA DOLINE S Ot M25.511 PAIN IN RIGHT SHOULDER 03/28/2018 DIANA GUEVARA DOLINE S Ot M25.512 PAIN IN LEFT SHOULDER 03/28/2018 DIANA GUEVARA DOLINE S Ot M62.830 MUSCLE SPASM OF BACK 03/28/2018 DIANA GUEVARA DOLINE S Ot N18.9 CHRONIC KIDNEY DISEASE, UNSPECIFIED 03/28/2018 DIANA GUEVARA DOLINE S Ot N28.9 DISORDER OF KIDNEY AND URETER, UNSPECIFI 03/28/2018 DIANA GUEVARA DOLINE S Ot R06.03 ACUTE RESPIRATORY DISTRESS 03/28/2018 DIANA GUEVARA DOLINE S Ot R09.02 HYPOXEMIA 03/28/2018 DIANA GUEVARA DOLINE S Ot R35.0 FREQUENCY OF MICTURITION 03/28/2018 DIANA GUEVARA DOLINE S Ot R45.1 RESTLESSNESS AND AGITATION 03/28/2018 DIANA GUEVARA DOLINE S Ot T40.2X5A ADVERSE EFFECT OF OTHER OPIOIDS, INITIAL 03/28/2018 DIANA GUEVARA DOLINE S Ot Z79.84 PENITENTIARY (CURRENT) USE OF ORAL HYPOGLYC 03/28/2018 DIANA GUEVARA DOLINE S Ot Z91.19 PATIENT'S NONCOMPLIANCE W [facility] MED[facility] TR 03/28/2018 DIANA GUEVARA DOLINE S Ot Z95.1 PRESENCE OF AORTOCORONARY BYPASS GRAFT 04/02/2018 LYDIA HIGUERA, MELISSA Williamson Ot E11.9 TYPE 2 DIABETES MELLITUS WITHOUT COMPLIC 04/02/2018 LYDIA HIGUERA, MELISSA Williamson Ot E78.00 PURE HYPERCHOLESTEROLEMIA, UNSPECIFIED 04/02/2018 LYDIA HIGUERA, MELISSA Williamson Ot I10 ESSENTIAL (PRIMARY) HYPERTENSION 04/02/2018 MELISSA FREEMAN MD Ot I25.10 ATHSCL HEART DISEASE OF [place] CORONARY 04/02/2018 MELISSA FREEMAN MD, Ot M54.16 RADICULOPATHY, LUMBAR REGION 04/02/2018 MELISSA FREEMAN MD, Ot M54.5 LOW BACK PAIN 04/02/2018 MELISSA FREEMAN MD, Ot Z79.82 RETAIL PRODUCT DEMO SPECIALIST (CURRENT) USE OF ASPIRIN 04/02/2018 MELISSA FREEMAN MD, Ot Z79.84 RETAIL PRODUCT DEMO SPECIALIST (CURRENT) USE OF ORAL HYPOGLYC 04/02/2018 MELISSA FREEMAN MD, Ot Z87.19 PERSONAL HISTORY OF OTHER DISEASES OF TH 04/02/2018 MELISSA FREEMAN MD, Ot Z87.891 PERSONAL HISTORY OF NICOTINE DEPENDENCE 04/02/2018 MELISSA FREEMAN MD, Ot Z95.1 PRESENCE OF AORTOCORONARY BYPASS GRAFT 04/02/2018 MELISSA FREEMAN MD, Ot Z95.5 PRESENCE OF CORONARY ANGIOPLASTY IMPLANT Procedures There is no data. Results Test [...] measurement by glucometer (mass/volume) 215 mg/dL 70-110 Complete blood count (CBC) with automated white blood cell (WBC) differential - 03/29/18 05:24 Blood leukocytes automated count (number/volume) 10.1 10*3/uL 4.3-11.0 Blood erythrocytes automated count (number/volume) 3.68 10*6/uL 4.35-5.85 Venous blood hemoglobin measurement (mass/volume) 11.9 g/dL 13.3-17.7 Blood hematocrit (volume fraction) 37 % 40-54 Automated erythrocyte mean corpuscular volume 99 [foz_us] 80-99 Automated erythrocyte mean corpuscular hemoglobin (mass per erythrocyte) 32 pg 25-34 Automated erythrocyte mean corpuscular hemoglobin concentration measurement ( mass/volume) 33 g/dL 32-36 Automated erythrocyte distribution width ratio 15.0 % 10.0-14.5 Automated blood platelet count (count/volume) 618 10*3/uL 130-400 Automated blood platelet mean volume measurement 8.8 [foz_us] 7.4-10.4 Automated blood neutrophils/100 leukocytes 78 % 42-75 Automated blood lymphocytes/100 leukocytes 9 % 12-44 Blood monocytes/100 leukocytes 12 % 0-12 Automated blood eosinophils/100 leukocytes 1 % 0-10 Automated blood basophils/100 leukocytes 0 % 0-10 Blood neutrophils automated count (number/volume) 7.9 10*3 1.8-7.8 Blood lymphocytes automated count (number/volume) 0.9 10*3 1.0-4.0 Blood monocytes automated count (number/volume) 1.3 10*3 0.0-1.0 Automated eosinophil count 0.1 10*3/uL 0.0-0.3 Automated blood basophil count (count/volume) 0.0 10*3/uL 0.0-0.1 PT panel in platelet poor plasma by coagulation assay - 03/29/18 05:24 Prothrombin time (PT) in platelet poor plasma by coagulation assay 15.3 s 12.2-14.7 INR in platelet poor plasma or blood by coagulation assay 1.2 0.8-1.4 Activated partial thromboplastin time (aPTT) in platelet poor plasma bycoagulation assay - 03/29/18 05:24 Activated partial thromboplastin time (aPTT) in platelet poor plasma bycoagulation assay 40 s 24-35 Comprehensive metabolic panel - 03/29/18 05:24 Serum or plasma sodium measurement (moles/volume) 136 mmol/L 135-145 Serum or plasma potassium measurement (moles/volume) 4.2 mmol/L 3.6-5.0 Serum or plasma chloride measurement (moles/volume) 98 mmol/L 98-107 Carbon dioxide 23 mmol/L 21-32 Serum or plasma anion gap determination (moles/volume) 15 mmol/L 5-14 Serum or plasma urea nitrogen measurement (mass/volume) 18 mg/dL 7-18 Serum or plasma creatinine measurement (mass/volume) 1.36 mg/dL 0.60-1.30 Serum or plasma urea nitrogen/creatinine mass ratio 13 NRG Serum or plasma creatinine measurement with calculation of estimated glomerular filtration rate 51 NRG Serum or plasma glucose measurement (mass/volume) 154 mg/dL 70-105 Serum or plasma calcium measurement (mass/volume) 9.9 mg/dL 8.5-10.1 Serum or plasma total bilirubin measurement (mass/volume) 0.5 mg/dL 0.1-1.0 Serum or plasma alkaline phosphatase measurement (enzymatic activity/volume) 112 U/L 40-136 Serum or plasma aspartate aminotransferase measurement (enzymatic activity/ volume) 19 U/L 5-34 Serum or plasma alanine aminotransferase measurement (enzymatic activity/volume ) 22 U/L 0-55 Serum or plasma protein measurement (mass/volume) 8.2 g/dL 6.4-8.2 Serum or plasma albumin measurement (mass/volume) 3.6 g/dL 3.2-4.5 Magnesium - 03/29/18 05:24 Magnesium 1.7 mg/dL 1.8-2.4 Serum or plasma troponin i.cardiac measurement (mass/volume) - 03/29/18 05:24 Serum or plasma troponin i.cardiac measurement (mass/volume) < ng/ mL <0.30 Serum or plasma lithium measurement (moles/volume) - 03/29/18 05:24 BNP level 870.9 pg/mL <100.0 Complete urinalysis with reflex to culture - 03/29/18 06:41 Urine color determination YELLOW NRG Urine clarity determination CLEAR NRG Urine pH measurement by test strip 6 5-9 Specific gravity of urine by test strip 1.015 1.016- 1.022 Urine protein assay by test strip, semi-quantitative 2+ NEGATIVE Urine glucose detection by automated test strip NEGATIVE NEGATIVE Erythrocytes detection in urine sediment by light microscopy NEGATIVE NEGATIVE Urine ketones detection by automated test strip 2+ NEGATIVE Urine nitrite detection by test strip NEGATIVE NEGATIVE Urine total bilirubin detection by test strip NEGATIVE NEGATIVE Urine urobilinogen measurement by automated test strip (mass/volume) NORMAL NORMAL Urine leukocyte esterase detection by dipstick NEGATIVE NEGATIVE Automated urine sediment erythrocyte count by microscopy (number/high power field) NONE NRG Automated urine sediment leukocyte count by microscopy (number/high power field ) RARE NRG Bacteria detection in urine sediment by light microscopy NEGATIVE NRG Squamous epithelial cells detection in urine sediment by light microscopy 0-2 NRG Crystals detection in urine sediment by light microscopy NONE NRG Casts detection in urine sediment by light microscopy NONE NRG Mucus detection in urine sediment by light microscopy SMALL NRG Complete urinalysis with reflex to culture NO NRG Methicillin resistant Staphylococcus aureus (MRSA) screening culture - 13:15 Methicillin resistant Staphylococcus aureus (MRSA) screening culture NEG NRG Encounters ACCT No. Visit Date/Time Discharge Status Pt. Type Provider Facility Loc./Unit Complaint [id number] 03/29/2018 04:57:00 03/29/2018 12:57:00 DIS Outpatient LYDIA HIGUERA, MELISSA Williamson [facility] ER BACK PAIN [id number] 03/21/2018 14:50:00 03/23/2018 14:00:00 DIS Inpatient DIANA GUEVARA DOLINE S [facility] 4TH CHF,HYPOXIA,BACK PAIN [id number] 07/17/2017 10:00:00 07/17/2017 12:45:00 DIS Emergency LAMONT JERONIMO SVP [facility] ER RLS [id number] 06/30/2017 16:39:00 06/30/2017 18:24:00 DIS Emergency JOLYNN HIGUERA, DENNY S [facility] ER ANXIOUS [id number] 01/06/2017 12:03:00 01/06/2017 23:59:59 CLS Outpatient CALOS BALDERRAMA MD [facility] CARD [id number] 05/10/2016 15:47:00 05/10/2016 23:59:59 CLS Outpatient FILEMON DIAZSAIDA S [facility] RAD RIB PAIN R [id number] 04/08/2016 08:55:00 04/08/2016 10:31:00 DIS Outpatient CALOS BALDERRAMA MD [facility] CARD SPONDYLOSIS [id number] 09/24/2015 12:26:00 09/24/2015 15:00:00 DIS Outpatient RAYMOND BALDERRAMA SVP [facility] WOUNDCARE [id number] 08/09/2015 11:17:00 08/09/2015 23:59:59 CLS Outpatient DOTTIE SANTIAGO RANGE MECHANIC [facility] QUICK [id number] 07/10/2015 08:23:00 07/10/2015 09:40:00 DIS Outpatient CALOS BALDERRAMA MD [facility] CARD DDJD LUMBAR [id number] 06/26/2015 10:19:00 06/26/2015 11:47:00 DIS Outpatient CALOS BALDERRAMA MD [facility] CARD SIJD [id number] 05/29/2014 08:52:00 05/29/2014 23:59:59 CLS Outpatient CRISTINA HICKEY DO [facility] RAD SEVERE LUMBAR SPONDOLOYSIS RIGHT HIP BURSITIS [id number] 04/23/2018 11:45:00 PEN Preadmit BERNICE CAMPOS DO [facility] SDC STENOSIS [id number] 04/17/2018 17:05:00 Document Registration [id number] 05/18/2014 19:29:00 Document Registration [id number] 01/24/2013 08:47:00 Document Registration [id number] 01/17/2013 11:27:00 Document Registration [id number] 11/14/2012 07:11:00 Document Registration [id number] 10/18/2012 21:14:00 Document Registration [id number] 06/20/2011 09:36:00 Document Registration [id number] 08/10/2015 02:19:42 ACT Document Registration [id number] 03/09/2018 07:58:45 Document Registration [id number] 03/05/2018 13:08:15 Document Registration [id number] 01/17/2018 15:20:24 Document Registration [id number] 12/21/2017 07:54:33 Document Registration [id number] 12/05/2017 08:55:06 Document Registration [id number] 12/01/2017 08:29:21 Document Registration 12/201610/18/2017 14:26:06 10/18/2017 23:59:59 CLS Outpatient Saida Guevara
[2018-04-23] MEDS ORDERED: BACITRACIN 100,000 UNIT/NS 1000 ML POUR BOTTLE IR ONE ×2 (11:00)
[2018-04-23 11:27] LABS: BASOPHILS % (AUTO) 0 % (0-10); EOSINOPHILS % (AUTO) 1 % (0-10); HEMATOCRIT 35 % (40-54); HEMOGLOBIN 11.6 G/DL (13.3-17.7); LYMPHOCYTES # (AUTO) 1.1 X 10^3 (1.0-4.0); LYMPHOCYTES % (AUTO) 13 % (12-44); MEAN CORPUSCULAR HEMOGLOBIN 31 PG (25-34); MEAN CORPUSCULAR HGB CONC 33 G/DL (32-36); MEAN CORPUSCULAR VOLUME 95 FL (80-99); MEAN PLATELET VOLUME 9.1 FL (7.4-10.4); MONOCYTES # (AUTO) 1.1 X 10^3 (0.0-1.0); MONOCYTES % (AUTO) 14 % (0-12); NEUTROPHILS % (AUTO) 73 % (42-75); PLATELET COUNT 519 10^3/uL (130-400); RED BLOOD COUNT 3.71 10^6/uL (4.35-5.85); RED CELL DISTRIBUTION WIDTH 15.2 % (10.0-14.5); WHITE BLOOD COUNT 8.3 10^3/uL (4.3-11.0)
[2018-04-23] MEDS ORDERED: MIDAZOLAM 2 MG/2 ML (VERSED) VIAL ONE (11:29)
[2018-04-23] MEDS ORDERED: LIDOCAINE PF 2% 5 ML (XYLOCAINE) VIAL ONE (11:29)
[2018-04-23] MEDS ORDERED: LACTATED RINGERS 1,000 ML IV ONE (11:29)
[2018-04-23] MEDS ORDERED: proPOfol 200 MG/20 ML (DIPRIVAN) VIAL IV ONE (11:29)
[2018-04-23] MEDS ORDERED: ROCURONIUM 10 MG/ML 5 ML SYRINGE IV ONE (11:29)
[2018-04-23] MEDS ORDERED: ONDANSETRON 4 MG/2 ML (SDV) Z0FRAN ONE (11:29)
[2018-04-23] MEDS ORDERED: fentaNYL INJECTION 250 MCG/5 ML AMP ONE (11:30)
[2018-04-23] MEDS ORDERED: DEXMEDETOMIDINE 200 MCG/2 ML (PRECEDEX) VIAL IV ONE ×2 (11:32→13:41)
[2018-04-23] MEDS ORDERED: VANCOMYCIN 1000 MG/VIAL ONE (11:32)
[2018-04-23] MEDS ORDERED: BUP/EPI 0.5% 1:200,000 (SENSORCAINE) 30 ML VIAL ONE (11:32)
[2018-04-23] MEDS ORDERED: SUCCINYLCHOLINE INJ 100 MG/5 ML SYR ONE (11:46)
[2018-04-23] MEDS ORDERED: DEXAMETHASONE 10 MG/ML (DECADRON) 1 ML VIAL ONE (11:46)
[2018-04-23] MEDS ORDERED: SEVOFLURANE (ULTANE) 15 ML INHAL SOLN ONE ×18 (11:46→16:32)
[2018-04-23] MEDS: LACTATED RINGERS 1,000 ML IV PRN ×5 (12:00→19:44)
[2018-04-23] MEDS ORDERED: SENN8.6T68 PO (12:09)
[2018-04-23] MEDS ORDERED: HYDR-3812 PO (12:09)
[2018-04-23] MEDS ORDERED: MAGN400T29 PO (12:09)
[2018-04-23] MEDS ORDERED: ALFU10TA11 PO (12:09)
[2018-04-23] MEDS ORDERED: IPRA3AMP IH (12:09)
[2018-04-23] MEDS ORDERED: POLY17PO6 PO (12:09)
[2018-04-23] MEDS ORDERED: BACL10TA PO (12:09)
[2018-04-23] MEDS ORDERED: PRAM1.5T5 PO (12:09)
[2018-04-23] MEDS ORDERED: FURO20TA4 PO (12:09)
[2018-04-23] MEDS ORDERED: METF10002 PO (12:09)
[2018-04-23] MEDS ORDERED: PHENYLEPHRINE 100 MCG/ML 10 ML (ANESTHESIA) SYR ONE ×2 (12:22→15:46)
[2018-04-23] MEDS ORDERED: morphine INJ 10 MG/ML 1ML (SYR OR VIAL) ONE (15:46)
[2018-04-23] MEDS ORDERED: GLYCOPYRROLATE 0.2 MG/ML (ROBINUL) 2 ML VIAL ONE (16:16)
[2018-04-23] MEDS ORDERED: NEOSTIGMINE 1 MG/ML 5 ML SYRINGE ONE (16:16)
[2018-04-23] MEDS ORDERED: NON-FORMULARY MEDICATION 1 EA EA (Pramipexole Di-HCl (Pramipexole Dihydrochloride) 1.5 MG) PO PRN (16:45)
[2018-04-23] MEDS ORDERED: SENNOSIDES 8.6 MG PO PRN (16:45)
[2018-04-23] MEDS ORDERED: RT-ALBUTEROL/IPRATROPIUM 3 ML (DUONEB) VIAL IH PRN (16:45)
[2018-04-23] MEDS: morphine INJ 10 MG/ML 1ML (SYR OR VIAL) IVP PRN ×4 (16:55→17:09)
[2018-04-23] MEDS ORDERED: ONDANSETRON 4 MG/2 ML (SDV) Z0FRAN IV PRN (17:00)
[2018-04-23] MEDS ORDERED: fentaNYL INJECTION 100 MCG/2 ML AMP IVP ONE (17:00)
[2018-04-23] MEDS ORDERED: ONDANSETRON 4 MG/2 ML (SDV) Z0FRAN IVP PRN (17:00)
[2018-04-23] MEDS ORDERED: MEPERIDINE (DEMEROL) INJ 50 MG/ML IVP PRN (17:00)
[2018-04-23] MEDS ORDERED: ACETAMINOPHEN 325 MG TABLET PO PRN (17:00)
[2018-04-23 18:25] VITALS: BP 77/35
[2018-04-23 18:30] VITALS: BP 109/58
--- NOTE | 2018-04-23 19:20 | Diagnostic Imaging Report ---
INDICATION: Lumbar spine fusion Intraoperative fluoroscopy performed during lumbar fusion from L3-L5. Disc prosthesis noted at L3-4. There is diffuse mild osteophyte formation. Patient incidentally has an abdominal aortic stent graft device. IMPRESSION: Intraoperative views obtained during lumbar fusion per Dr. Xie. 2 minutes and 8 seconds of fluoroscopy time was used. Dictated by: Dictated on workstation # [id number]
[2018-04-23] MEDS ORDERED: HYDROcodone/APAP 5 MG/325 MG (LORTAB) TAB ONE (19:46)
[2018-04-23] MEDS: HYDROcodone/APAP 5 MG/325 MG (LORTAB) TAB PO PRN (19:48)
[2018-04-23 20:00] VITALS: BP 74/86
[2018-04-23] MEDS ORDERED: SENNOSIDES 8.6 MG (SENOKOT) TAB PO PRN (20:00)
[2018-04-23] MEDS ORDERED: PRAMIPEXOLE 0.5 MG TAB (MIRAPEX) PO PRN (20:00)
[2018-04-23] MEDS ORDERED: LACTATED RINGERS 1,000 ML IV PRN (20:08)
[2018-04-23] MEDS ORDERED: LACTATED RINGERS 500 ML IV ONE (20:15)
[2018-04-23] MEDS ORDERED: LACTATED RINGERS 1,000 ML IV SCH (21:15)
[2018-04-23 21:30] VITALS: BP 90/57
[2018-04-23] MEDS: ceFAZolin INJECTION 1,000 MG in NS (IVPB) 50 ML IV SCH (22:11)
[2018-04-23] MEDS: FAMOTIDINE 20 MG (PEPCID) TABLET PO SCH (22:12)
[2018-04-23] MEDS: DOCUSATE SODIUM 100 MG (COLACE) CAP PO SCH (22:12)
[2018-04-23] MEDS: MAGNESIUM OXIDE (MAG-OX)400 MG TAB PO SCH (22:12)
[2018-04-23] MEDS: LATANOPROST 0.005% (XALATAN) OPHTH SOLN 2.5 ML OU SCH (22:19)
[2018-04-23] MEDS: BACLOFEN 10 MG (LIORESAL) TAB PO SCH (22:33)
[2018-04-23 23:16] LABS: HEMOGLOBIN 9.5 G/DL (13.3-17.7); MEAN PLATELET VOLUME 9.1 FL (7.4-10.4); RED BLOOD COUNT 3.03 10^6/uL (4.35-5.85); RED CELL DISTRIBUTION WIDTH 15.1 % (10.0-14.5); WHITE BLOOD COUNT 13.5 10^3/uL (4.3-11.0)
[2018-04-23 23:36] LABS: ALBUMIN 2.7 GM/DL (3.2-4.5); BILIRUBIN,TOTAL 0.3 MG/DL (0.1-1.0); CALCIUM 8.8 MG/DL (8.5-10.1); CREATININE SERUM 1.53 MG/DL (0.60-1.30); TOTAL PROTEIN 6.2 GM/DL (6.4-8.2)
[2018-04-24] VITALS (26 sets, daily range): BP systolic 70–119; BP diastolic 45–72
[2018-04-24] MEDS: HYDROcodone/APAP 5 MG/325 MG (LORTAB) TAB PO PRN ×4 (00:06→23:54)
--- NOTE | 2018-04-24 01:15 | OPERATIVE REPORT ---
DATE OF SERVICE: 04/23/2018 SURGEON: Maco Xie DO REPRESENTATIVE: NOREEN Barry. This is a medically necessary procedure. Assistance was necessary for retraction of vital neurovascular structures. Without an behavioral health assistant, the procedure would not be possible. PREOPERATIVE DIAGNOSES: 1. Lumbar spinal stenosis (central, connective tissue, bony). 2. Lumbar radiculopathy. 3. Neurogenic claudication. POSTOPERATIVE DIAGNOSIS: 1. Lumbar spinal stenosis (central, connective tissue, bony). 2. Lumbar radiculopathy. 3. Neurogenic claudication. PROCEDURE PERFORMED: 1. L3-L4 direct lateral interbody lumbar fusion. 2. Application of titanium cages L3-L4, L4-L5. 3. Posterior instrumentation L3-L4, L4-L5. 4. Posterior spinal fusion L3-L4, L4-L5. 5. Bilateral laminectomy with complete facetectomies and foraminotomies L3-L4, L4-L5. 6. Transforaminal lumbar interbody fusion L4-L5. 7. Use of human Allograft for spine. 8. Use of local bone autograft. COMPLICATIONS: None. SPECIMEN SENT: None. ESTIMATED BLOOD LOSS: See anesthesia records. ANESTHESIA: General endotracheal tube anesthesia with local anesthetic. HISTORY OF PRESENT ILLNESS: The patient is a very pleasant 77-year-old gentleman with a history of heart issues presented to me after failing conservative measures for his severe spinal stenosis and severe neurogenic claudication, which has affected his quality of life. He did wish to undergo operative intervention despite the increased risks given his prior medical history. DESCRIPTION OF PROCEDURE: The patient was identified by name on wrist band in the preoperative holding area and the operative site was signed, consent was signed. SCDs were placed. Neuro monitoring was hooked up and antibiotics were started. He was taken to the operating theater and placed under general endotracheal tube anesthesia, transferred to the operating room table in the lateral position with the left side up. He was prepped and draped in usual sterile fashion. Formal timeout was conducted. I made a longitudinal incision over the L3-L4 and L4-L5 disk spaces. I proceeded with a standard lateral retroperitoneal transpsoas approach to the lumbar spine docking at L4-L5 at the midpoint of that disk space. As I looked down the retractor, I was unable to visualize a clear path between the nerve roots. I also encountered significant bleeding due to segmental arteries. Due to these obstacles I decided to abort L4-L5. I removed the retractor. I then redocked at L3-L4. I dilated up placed a table mounted retractor. I did an annulotomy followed by complete diskectomy. I then sized and chose the appropriate titanium interbody cage packed with human allograft and seated into the midline position. AP and lateral x-ray demonstrated good positioning of this cage. At this point, I maintained hemostasis, closed the wound in my usual layered fashion. Applied dressings, placed the patient in the prone position, prepped and reprepped the patient at this point brought in lateral x-ray. I then made a midline lumbar incision extending from the spinous process of L3 to the spinous process of L5. I proceeded with bilateral subperiosteal paraspinal muscular approach exposing the posterior elements from L3-L5. I placed pedicle screws bilaterally in L3, L4 and L5. I tested them with EMG neuro monitoring. I checked AP and lateral x-ray. The screws were in good position. I then turned my attention to the transforaminal lumbar interbody fusion, which I had decided to perform at L4-L5 instead of the direct lateral interbody lumbar fusion. Therefore, I did a complete facetectomy on the left side at L4-L5 identifying the thecal sac. I retracted it medially. I performed an annulotomy followed by complete diskectomy. I sized and chose the appropriate titanium interbody cage packed with human allograft and autograft and I seated it into the midline position. At this point, I placed a kaylee on the left and a kaylee on the right. I placed set screws, I finally tightened the set screws. I thoroughly irrigated the wound with antibiotic enhanced irrigation. I packed a mixture of human allograft and local bone autograft in the left and right gutters to promote posterior spinal fusion. I placed a deep subfascial Hemovac drain. Please note, I did bilateral laminectomies at L3-L4 and L4-L5 with thorough decompression of the neural elements. I maintained hemostasis. I closed the wound in my usual layered fashion utilizing 0-Vicryl followed by 2-0 Vicryl followed by jazmine for skin. I applied dressings and took the patient in the supine position to the PACU where he awoke without incident. He tolerated the procedure well. The plan at this time is to admit the patient for IV antibiotics, IV pain control and postoperative monitoring. We will get the patient out of bed on postoperative day #1 with the brace on. Please note instrumentation utilized for this procedure was [employer] for everything. Job ID: [id number] DocumentID: [id number] Dictated Date: 04/23/2018 16:30:29 Art Class Model Date: 04/24/2018 01:15:23 Dictated By: MACO XIE DO
[2018-04-24] MEDS ORDERED: NS IV 500 ML 500 ML ONE (04:04)
[2018-04-24] MEDS ORDERED: NS IV 500 ML 500 ML IV SCH (04:15)
[2018-04-24] MEDS: ceFAZolin INJECTION 1,000 MG in NS (IVPB) 50 ML IV SCH ×2 (05:24→13:47)
[2018-04-24] MEDS: MULTIVIT W/MINERALS TAB (THERAGRAN M) PO SCH (05:30)
[2018-04-24 05:44] LABS: BASOPHILS % (AUTO) 0 % (0-10); EOSINOPHILS % (AUTO) 0 % (0-10); HEMATOCRIT 28 % (40-54); HEMOGLOBIN 8.7 G/DL (13.3-17.7); LYMPHOCYTES # (AUTO) 1.2 X 10^3 (1.0-4.0); LYMPHOCYTES % (AUTO) 10 % (12-44); MEAN CORPUSCULAR HEMOGLOBIN 30 PG (25-34); MEAN CORPUSCULAR HGB CONC 31 G/DL (32-36); MEAN CORPUSCULAR VOLUME 97 FL (80-99); MEAN PLATELET VOLUME 9.1 FL (7.4-10.4); MONOCYTES # (AUTO) 1.2 X 10^3 (0.0-1.0); MONOCYTES % (AUTO) 10 % (0-12); NEUTROPHILS # (AUTO) 10.1 X 10^3 (1.8-7.8); NEUTROPHILS % (AUTO) 80 % (42-75); PLATELET COUNT 411 10^3/uL (130-400); RED CELL DISTRIBUTION WIDTH 15.3 % (10.0-14.5); WHITE BLOOD COUNT 12.5 10^3/uL (4.3-11.0)
--- NOTE | 2018-04-24 06:03 | Pulmonary Consultation ---
History of Present Illness History of Present Illness Date of Consultation 04/24/18 05:58 Time Seen by Provider: 05:58 Date of Admission History of Present Illness 77yo presented as direct admit after elective lumbar surgery for lumbar stenosis. Allergies and Home Medications Allergies Coded Allergies: No Known Drug Allergies (Unverified , 04/16/18) Home Medications Alfuzosin HCl 10 Mg Tab.er.24h, 10 MG PO DAILY, (Reported) Aspirin 325 Mg Tablet, 325 MG PO DAILY, (Reported) Baclofen 10 Mg Tablet, 20 MG PO HS, (Reported) TAKE 2 (10 MG) TABLETS AT BEDTIME Finasteride 5 Mg Tablet, 5 MG PO DAILY, (Reported) Furosemide 20 Mg Tablet, 20 MG PO DAILY, (Reported) Hydrocodone/Acetaminophen 1 Each Tablet, 1 EACH PO Q4H PRN for PAIN-MODERATE, ( Reported) Ipratropium/Albuterol Sulfate 3 Ml Ampul.neb, 3 ML IH Q8H PRN for SHORTNESS OF BREATH, (Reported) Latanoprost 2.5 Ml Drops, 1 DROP OU HS, (Reported) Magnesium Oxide 400 Mg Tablet, 400 MG PO BID, (Reported) Metformin HCl 1,000 Mg Tablet, 1,000 MG PO BID, (Reported) Polyethylene Glycol 3350 17 Gm Powd.pack, 17 GM PO BID PRN for CONSTIPATION-2ND LINE, (Reported) Pramipexole Di-HCl 1.5 Mg Tablet, 1.5 MG PO TID PRN for RESTLESSNESS, (Reported) Sennosides 8.6 Mg Tablet, 8.6 MG PO TID PRN for CONSTIPATION-5TH LINE, (Reported ) Past Mjupmtl-Wrcvmq-Akieep Hx Patient Social History Alcohol Use: Denies Use Recreational Drug Use: No Smoking Status: Former Smoker Type Used: Cigarettes Former Smoker, Quit: Apr 16, 1985 2nd Hand Smoke Exposure: No Recent Foreign Travel: No Contact w/Someone Who Travel: No Recent Infectious Disease Expo: No Recent Hopitalizations: No Immunizations Up To Date Tetanus Booster (TDap): More than 5yrs Date of Pneumonia Vaccine: Aug 21, 2017 Seasonal Allergies Seasonal Allergies: No Past Medical History Surgeries: Yes (4 VESSEL CABG; AAA REPAIR WITH STENT) Cardiac, CABG, Vascular Surgery Respiratory: Yes ( STATES PT WAS PRESCRIBED O2 FOR HOME USE, BUT NON- COMPLIANT) Currently Using CPAP: No Cardiac: Yes (AAA STENT) Aneurysm, Coronary Artery Disease, High Cholesterol, Hypertension Neurological: Yes (TRIGEMINAL NEURALGIA) Reproductive Disorders: No Genitourinary: Yes (FREQUENCY ) Gastrointestinal: Yes Chronic Constipation Musculoskeletal: Yes (STENOSIS) Chronic Back Pain, Spasms Endocrine: No Diabetes, Non-Insulin dep HEENT: Yes (GLASSES) Cataract, Glaucoma Loss of Vision: Bilateral Hearing Impairment: Hard of Hearing Cancer: No Psychosocial: No Integumentary: No Blood Disorders: No Adverse Reaction/Blood Tranf: No Family Medical History Patient reports no known family medical history. Exam Exam Vital Signs Date Time Temp Pulse Resp B/P (MAP) Pulse Ox O2 Delivery O2 Flow Rate FiO2 04/24/18 04:00 107 27 94/56 (69) 95 Nasal Cannula 3.50 04/24/18 03:30 109 04/24/18 03:05 95 Nasal Cannula 3.50 04/24/18 03:04 99.7 108 24 75/53 (60) 91 Nasal Cannula 3.50 04/24/18 02:40 119/55 (76) 04/24/18 00:00 99.3 94 16 81/52 (62) 93 Nasal Cannula 3.50 04/23/18 21:30 90/57 (68) 04/23/18 21:00 93 Nasal Cannula 4.00 04/23/18 20:00 97.1 109 20 74/86 (82) 92 Nasal Cannula 4.00 04/23/18 19:39 90 Nasal Cannula 4.00 04/23/18 18:35 92 Nasal Cannula 4.00 04/23/18 18:30 96.9 100 20 109/58 (75) 93 Nasal Cannula 4.00 04/23/18 18:25 100 77/35 (49) 93 Nasal Cannula 4.00 04/23/18 10:42 Room Air 04/23/18 10:42 97.8 98 20 108/74 (85) 89 Room Air I & O 04/24/18 06:59 Intake Total 4900 ml Output Total 955 ml Balance 3945 ml Results Lab Laboratory Tests 04/23/18 11:17 04/23/18 23:10 04/24/18 05:10 Assessment/Plan Assessment/Plan Lumbar spinal stenosis with radiculopathy s/p lumbar fusion, laminectomy and cage placement -Pain management ARA -monitor -IVF Hypotension pt is responding to IVF -IVF and monitor Mild anemia post op -monitor Leukocytosis - probably secondary to surgery -monitor LILIYA RENEE DO Apr 24, 2018 06:03
[2018-04-24 06:13] LABS: CALCIUM 8.5 MG/DL (8.5-10.1); CREATININE SERUM 1.87 MG/DL (0.60-1.30); MAGNESIUM 1.4 MG/DL (1.8-2.4); PHOSPHORUS 4.3 MG/DL (2.3-4.7); POTASSIUM 5.7 MMOL/L (3.6-5.0)
--- NOTE | 2018-04-24 06:58 | Progress Note (SOAP) ---
Subjective Date Seen by Provider: Apr 24, 2018 Time Seen by Provider: 06:53 Subjective/Events-last exam Mrs Ledezma is POD #1 s/p L3-4 dlif L4-5 TLIF. He was transferred to icu last night for hypotension and oliguria with background of chf with ef 28%. His bp is better today after flood repletion. His pain is significant. He denies SOB , CP, NV. Review of Systems General: No Chills, No Night Sweats Pulmonary: No Dyspnea, No Cough Gastrointestinal: No: Nausea, Vomiting, Abdominal Pain Musculoskeletal: back pain Neurological: No: Weakness, Numbness, Incoordination, Change in speech Objective Exam Vital Signs Date Time Temp Pulse Resp B/P (MAP) Pulse Ox O2 Delivery O2 Flow Rate FiO2 04/24/18 06:03 97 Nasal Cannula 4.00 04/24/18 06:00 101 27 87/60 (69) 96 Nasal Cannula 2.00 04/24/18 05:00 104 27 88/50 (63) 91 Nasal Cannula 3.50 04/24/18 04:00 107 27 94/56 (69) 95 Nasal Cannula 3.50 04/24/18 03:30 109 04/24/18 03:05 95 Nasal Cannula 3.50 04/24/18 03:04 99.7 108 24 75/53 (60) 91 Nasal Cannula 3.50 04/24/18 02:40 119/55 (76) 04/24/18 00:00 99.3 94 16 81/52 (62) 93 Nasal Cannula 3.50 04/23/18 21:30 90/57 (68) 04/23/18 21:00 93 Nasal Cannula 4.00 04/23/18 20:00 97.1 109 20 74/86 (82) 92 Nasal Cannula 4.00 04/23/18 19:39 90 Nasal Cannula 4.00 04/23/18 18:35 92 Nasal Cannula 4.00 04/23/18 18:30 96.9 100 20 109/58 (75) 93 Nasal Cannula 4.00 04/23/18 18:25 100 77/35 (49) 93 Nasal Cannula 4.00 04/23/18 10:42 Room Air 04/23/18 10:42 97.8 98 20 108/74 (85) 89 Room Air I & O 04/24/18 07:00 Intake Total 4900 ml Output Total 955 ml Balance 3945 ml Capillary Refill : General Appearance: No Apparent Distress Neck: Non Tender Respiratory: Lungs Clear, Normal Breath Sounds, No Accessory Muscle Use, No Respiratory Distress Cardiovascular: No JVD Peripheral Pulses: 2+ Dorsalis Pedis (R), 2+ Left Dors-Pedis (L) Gastrointestinal: non tender, soft, no organomegaly Extremity: Normal Capillary Refill, Normal Inspection, Normal Range of Motion, Non Tender, No Calf Tenderness Neurologic/Psychiatric: Alert, Oriented x3 Results Lab Laboratory Tests 04/23/18 11:09: Glucometer 150H 04/23/18 11:17: White Blood Count 8.3, Red Blood Count 3.71L, Hemoglobin 11.6L, Hematocrit 35L, Mean Corpuscular Volume 95, Mean Corpuscular Hemoglobin 31, Mean Corpuscular Hemoglobin Concent 33, Red Cell Distribution Width 15.2H, Platelet Count 519H, Mean Platelet Volume 9.1, Neutrophils (%) (Auto) 73, Lymphocytes (%) (Auto) 13, Monocytes (%) (Auto) 14H, Eosinophils (%) (Auto) 1, Basophils (%) (Auto) 0, Neutrophils # (Auto) 6.0, Lymphocytes # (Auto) 1.1, Monocytes # (Auto) 1.1H, Eosinophils # (Auto) 0.0, Basophils # (Auto) 0.0 04/23/18 20:49: Glucometer 139H 04/23/18 23:10: White Blood Count 13.5H, Red Blood Count 3.03L, Hemoglobin 9.5L, Hematocrit 29L , Mean Corpuscular Volume 97, Mean Corpuscular Hemoglobin 31, Mean Corpuscular Hemoglobin Concent 32, Red Cell Distribution Width 15.1H, Platelet Count 412H, Mean Platelet Volume 9.1, Sodium Level 135, Potassium Level 5.0, Chloride Level 100, Carbon Dioxide Level 22, Anion Gap 13, Blood Urea Nitrogen 23H, Creatinine 1.53H, Estimat Glomerular Filtration Rate 45, BUN/Creatinine Ratio 15, Glucose Level 149H, Calcium Level 8.8, Total Bilirubin 0.3, Aspartate Amino Transf (AST/ SGOT) 20, Alanine Aminotransferase (ALT/SGPT) 10, Alkaline Phosphatase 90, Total Protein 6.2L, Albumin 2.7L 04/24/18 05:10: White Blood Count 12.5H, Red Blood Count 2.90L, Hemoglobin 8.7L, Hematocrit 28L , Mean Corpuscular Volume 97, Mean Corpuscular Hemoglobin 30, Mean Corpuscular Hemoglobin Concent 31L, Red Cell Distribution Width 15.3H, Platelet Count 411H, Mean Platelet Volume 9.1, Neutrophils (%) (Auto) 80H, Lymphocytes (%) (Auto) 10L , Monocytes (%) (Auto) 10, Eosinophils (%) (Auto) 0, Basophils (%) (Auto) 0, Neutrophils # (Auto) 10.1H, Lymphocytes # (Auto) 1.2, Monocytes # (Auto) 1.2H, Eosinophils # (Auto) 0.0, Basophils # (Auto) 0.0, Sodium Level 134L, Potassium Level 5.7H, Chloride Level 101, Carbon Dioxide Level 20L, Anion Gap 13, Blood Urea Nitrogen 25H, Creatinine 1.87H, Estimat Glomerular Filtration Rate 35, BUN/ Creatinine Ratio 13, Glucose Level 161H, Calcium Level 8.5, Phosphorus Level 4.3 , Magnesium Level 1.4L Assessment/Plan Assessment/Plan Assess & Plan/Chief Complaint Assessment: POD #1 s/p lumbar fusion CHF hypotension abl anemia CAROLINE diabetes Plan: plan to xfer back to floor continue fluids, will monitor for fluid overload scd back brace when OOB PT pain control - will monitor BP monitor labs lumbar x-ray today Clinical Quality Measures DVT/VTE Risk/Contraindication: Risk Factor Score Per Nursin RFS Level Per Nursing on Admit: 4+=Very High YANICK TORRES Apr 24, 2018 06:58
[2018-04-24] MEDS: oxyCODONE/APAP 5/325MG (PERCOCET 5) TABLET PO PRN (08:23)
[2018-04-24] MEDS: FUROSEMIDE 20 MG (LASIX) TAB PO SCH (08:23)
[2018-04-24] MEDS: MAGNESIUM OXIDE (MAG-OX)400 MG TAB PO SCH ×2 (08:23→20:59)
[2018-04-24] MEDS: FINASTERIDE (PROSCAR) 5 MG TAB PO SCH (08:23)
[2018-04-24] MEDS: DOCUSATE SODIUM 100 MG (COLACE) CAP PO SCH ×2 (08:23→20:59)
[2018-04-24] MEDS: FAMOTIDINE 20 MG (PEPCID) TABLET PO SCH ×2 (08:23→20:59)
[2018-04-24] MEDS ORDERED: NON-FORMULARY MEDICATION 1 EA EA (Alfuzosin HCl (Alfuzosin HCl ER) 10 MG) PO SCH (09:00)
--- NOTE | 2018-04-24 10:17 | Physical Therapy Evaluation ---
PT Evaluation-General Medical Diagnosis Admission Date Apr 23, 2018 at 10:39 Medical Diagnosis: stenosis Onset Date: Apr 23, 2018 Therapy Diagnosis Therapy Diagnosis: generalized weakness/debility Height/Weight Height (Feet): 6 Height (Inches): 1.00 Weight (Pounds): 227 Weight (Ounces): 2.0 Precautions Precautions/Isolations: Fall Prevention, Standard Precautions Weight Bear Status Right Lower Extremity: Right Weight Bearing/Tolerated Left Lower Extremity: Left Weight Bearing/Tolerated Referral Physician: Rojas Reason for Referral: Evaluation/Treatment Medical History Pertinent Medical History: CAD, DM, Heart Failure, Renal Insufficiency Current History s/p L3-4 DLIF/L4-5 TLIF Reviewed History: Yes Social History Home: Single Level Current Living Status: Spouse Prior/Core FIM Prior Level of Function Functional [place] Measure 0=Not Assessed/NA 4=Minimal Assistance 1=Total Assistance 5=Supervision or Setup 2=Maximal Assistance 6=Modified [place] 3=Moderate Assistance 7=Complete [place] Bed Mobility: 6 Transfers (B,C,W/C) (FIM): 6 Gait: 6 PT Evaluation-Current Subjective Patient requires much encouragement to participate with PT. He initially declined stating, "It's going to hurt and I just want to stay in bed." PT educated patient on possible negative side effects of no activity vs. activity. Pain Numeric Pain Scale: 10-Worst Possible Pain Location: Lower Location Body Site: Back Pain Description: Acute Objective Patient Orientation: Normal For Age Problem Solving: Fair Attachments: Oxygen, Drains, Bonilla Catheter, IV ROM/Strength ROM Lower Extremities bilateral LE WNL Strength Lower Extremities 3-/5 grossly left LE/3/5 grossly right LE Integumentary/Posture Integumentary refer to nursing notes Bladder Incontinence: Bonilla Cath Posture cervical and trunk flexion in sit and stand Neuromuscular (Tone, Coordination, Reflexes) diminished coordination left LE due to weakness Sensory Vision: Functional Hearing: Impaired Sensation Right Lower Extremit: Impaired Sensation Left Lower Extremity: Impaired Transfers Functional [place] Measure 0=Not Assessed/NA 4=Minimal Assistance 1=Total Assistance 5=Supervision or Setup 2=Maximal Assistance 6=Modified [place] 3=Moderate Assistance 7=Complete [place] Transfers (B, C, W/C) (FIM): 1 Scootin Supine to/from Sit: 1 Sit to/from Stand: 1 bed t/f WC(FIM only if WC use): 1 Patient resistive with all mobility with yelling. Patient required dependent assist with all. Gait Anticipated Mode of Locomotion: Walk Balance Sitting Static: Fair Sitting Dynamic: Poor Standing Static: Poor Standing Dynamic: Poor Treatment Sit to stand x 3 sets with dependent assist with all. Patient unable to utilize FWW at this time to assist with sit to stand mobility. Back brace placed on patient in sit position EOB. Assessment/Needs 77 y.o. male, will benefit from skilled PT to address functional strength and mobility to improve current LOF. Patient is currently very resistive with all mobility and requires much encouragement to activity participate with PT. RN is present and aware. Rehab Potential: Fair Post Rehab Potential-Barriers: compliance PT Short Term Goals Short Term Goals Time Frame: May 03, 2018 Transfers (B,C,W/C) (FIM): 3 Gait (FIM): 1 Distance (FIM): 1=up to 49 ft Gait Distance Comment: 45' Gait Level of Assist: 4 Gait Assistive Device: FWW PT Residential Goals Residential Goals PT Residential Goals Time Frame: May 11, 2018 Transfers (B,C,W/C) (FIM): 5 Gait (FIM): 5 Gait distance (FIM): 3=150 ft Distance: 150' Gait Level of Assist: 5 Gait Assistive Device: FWW PT Plan Problem List Problem List: Activity Tolerance, Functional Strength, Safety, Balance, Gait, Transfer, Bed Mobility, ROM Treatment/Plan Treatment Plan: Continue Plan of Care Treatment Plan: Bed Mobility, Education, Functional Activity Brain, Functional Strength, Gait, Safety, Therapeutic Exercise, Transfers Treatment Duration: May 11, 2018 Frequency: 11 times per week Estimated Hrs Per Day: 1 hour per day Patient and/or Family Agrees t: Yes Safety Risks/Education Patient Education: Safety Issues Teaching Recipient: Patient Teaching Methods: Discussion Response to Teaching: Reinforcement Needed Discharge Recommendations Therapy D/C Recommendations: Residential Placement, Usp (TCU/NH) Time/GCodes Time In: 820 Time Out: 905 Total Billed Treatment Time: 45 Total Billed Treatment 1 visit EVHighC 25 min FA 20 min JIMI LOPEZ PT Apr 24, 2018 10:17
[2018-04-24] MEDS ORDERED: NS IV 1000 ML 1,000 ML IV SCH (10:30)
--- NOTE | 2018-04-24 11:03 | Anesthesia-General Post-Op ---
General Patient Condition Mental Status/LOC: Same as Preop Cardiovascular: Satisfactory Nausea/Vomiting: Absent Respiratory: Satisfactory Pain: Controlled Complications: Absent Post Op Complications Complications None Follow Up Care/Instructions Patient Instructions None needed. Anesthesia/Patient Condition Patient Condition Patient is doing well, no complaints, stable vital signs, no apparent adverse anesthesia problems. No complications reported per nursing. ZENAIDA WEVAER CRNA Apr 24, 2018 11:03
[2018-04-24] MEDS ORDERED: LACTATED RINGERS 1,000 ML IV ONE (11:45)
--- NOTE | 2018-04-24 11:47 | Physical Therapy Daily Note ---
PT Daily Note-Current Subjective Patient receives education on importance of utilizing his body to assist with moving. Pain Numeric Pain Scale: 10-Worst Possible Pain Location: Lower Location Body Site: Back Pain Description: Acute Mental Status Patient Orientation: Normal For Age Attachments: Oxygen, Drains, Bonilla Catheter, IV Transfers Functional [place] Measure 0=Not Assessed/NA 4=Minimal Assistance 1=Total Assistance 5=Supervision or Setup 2=Maximal Assistance 6=Modified [place] 3=Moderate Assistance 7=Complete IndependenceIRFPAI Quality Coding Scale 6 Independent with activity with or without an assistive device 5 Patient requires set up or clean up by helper. Patient completes activity by themselves 4 Supervision or touching assist (CGA). [place] provide cues , steadying assist 3 The helper provides less than half the effort to complete the activity 2 The helper provides more than half the effort to complete the activity 1 Dependent. The helper does all the effort to complete an activity 7 Patient refused to complete or attempt activity 9 The patient did not perform the activity before the current illness or injury 88 Not attempted due to Medical conditions or safety concerns Transfers (B, C, W/C) (FIM): 1 Scootin Rollin Supine to/from Sit: 1 Sit to/from Stand: 1 Bed to/from Chair: 1 assist x 3 with sit to stand and bed mobility Weight Bearing Right Lower Extremity: Right Weight Bearing/Tolerated Left Lower Extremity: Left Weight Bearing/Tolerated Assessment Patient is highly encouraged to actively participate with therapy to improve mobility and increase strength. Patient is very resistive with all mobility and yells in pain continuously. PT Short Term Goals Short Term Goals Time Frame: May 03, 2018 Transfers (B,C,W/C) (FIM): 3 Gait (FIM): 1 Distance (FIM): 1=up to 49 ft Gait Distance Comment: 45' Gait Level of Assist: 4 Gait Assistive Device: FWW PT Senior Behavioral Scientist Goals Senior Behavioral Scientist Goals PT Senior Behavioral Scientist Goals Time Frame: May 11, 2018 Transfers (B,C,W/C) (FIM): 5 Gait (FIM): 5 Gait distance (FIM): 3=150 ft Distance: 150' Gait Level of Assist: 5 Gait Assistive Device: FWW PT Plan Treatment/Plan Treatment Plan: Continue Plan of Care Treatment Plan: Bed Mobility, Education, Functional Activity Brain, Functional Strength, Gait, Safety, Therapeutic Exercise, Transfers Treatment Duration: May 11, 2018 Frequency: 11 times per week Estimated Hrs Per Day: 1 hour per day Patient and/or Family Agrees t: Yes Time/GCodes Time In: 1030 Time Out: 1045 Total Billed Treatment Time: 15 Total Billed Treatment 1 visit FA 15 min JIMI LOPEZ PT Apr 24, 2018 11:47
[2018-04-24] MEDS ORDERED: inSUlin ASPART (NovoLOG) 1 UNIT/0.01 ML (CHARGE PER UNIT) ONE (12:03)
[2018-04-24] MEDS: inSUlin ASPART (NovoLOG) 1 UNIT/0.01 ML (CHARGE PER UNIT) SC SCH ×3 (12:06→21:05)
[2018-04-24] MEDS: LACTATED RINGERS 1,000 ML IV SCH ×3 (12:07→22:46)
[2018-04-24 14:07] LABS: HEMOGLOBIN 7.6 G/DL (13.3-17.7)
[2018-04-24] MEDS ORDERED: NS (IVPB) 250 ML ONE (15:52)
[2018-04-24] MEDS: TAMSULOSIN 0.4 MG (FLOMAX) CAP PO SCH (16:06)
[2018-04-24] MEDS: LATANOPROST 0.005% (XALATAN) OPHTH SOLN 2.5 ML OU SCH (20:59)
[2018-04-24] MEDS: BACLOFEN 10 MG (LIORESAL) TAB PO SCH (20:59)
[2018-04-25] VITALS (15 sets, daily range): BP systolic 97–125; BP diastolic 60–77
[2018-04-25 03:36] LABS: BASOPHILS % (AUTO) 0 % (0-10); EOSINOPHILS % (AUTO) 0 % (0-10); HEMATOCRIT 25 % (40-54); HEMOGLOBIN 8.3 G/DL (13.3-17.7); LYMPHOCYTES # (AUTO) 1.2 X 10^3 (1.0-4.0); LYMPHOCYTES % (AUTO) 10 % (12-44); MEAN CORPUSCULAR HEMOGLOBIN 31 PG (25-34); MEAN CORPUSCULAR HGB CONC 33 G/DL (32-36); MEAN CORPUSCULAR VOLUME 94 FL (80-99); MEAN PLATELET VOLUME 9.1 FL (7.4-10.4); MONOCYTES # (AUTO) 1.5 X 10^3 (0.0-1.0); MONOCYTES % (AUTO) 12 % (0-12); NEUTROPHILS # (AUTO) 9.6 X 10^3 (1.8-7.8); NEUTROPHILS % (AUTO) 78 % (42-75); PLATELET COUNT 396 10^3/uL (130-400); RED BLOOD COUNT 2.67 10^6/uL (4.35-5.85); RED CELL DISTRIBUTION WIDTH 16.1 % (10.0-14.5); WHITE BLOOD COUNT 12.4 10^3/uL (4.3-11.0)
[2018-04-25 03:55] LABS: CALCIUM 8.3 MG/DL (8.5-10.1); CREATININE SERUM 1.52 MG/DL (0.60-1.30); MAGNESIUM 1.7 MG/DL (1.8-2.4); POTASSIUM 4.6 MMOL/L (3.6-5.0)
[2018-04-25] MEDS: inSUlin ASPART (NovoLOG) 1 UNIT/0.01 ML (CHARGE PER UNIT) SC SCH ×4 (05:33→20:00)
[2018-04-25] MEDS: LACTATED RINGERS 1,000 ML IV SCH (05:39)
[2018-04-25] MEDS: MULTIVIT W/MINERALS TAB (THERAGRAN M) PO SCH (05:39)
--- NOTE | 2018-04-25 05:45 | Pulmonary Progress Note ---
Subjective Time Seen by Provider: 05:48 Subjective/Events-last exam PT is confused and is complaining of confusion/disorientation. Exam Exam Vital Signs Date Time Temp Pulse Resp B/P (MAP) Pulse Ox O2 Delivery O2 Flow Rate FiO2 04/25/18 04:09 99.4 04/25/18 03:00 112 21 103/71 (82) 99 Nasal Cannula 3.00 04/25/18 02:00 116 23 102/65 (77) 97 Nasal Cannula 3.00 04/25/18 01:15 101.0 04/25/18 01:00 128 23 122/60 (80) 96 Nasal Cannula 3.00 04/25/18 01:00 126 04/25/18 00:00 101.4 Nasal Cannula 3.00 04/25/18 00:00 95 Nasal Cannula 3.00 04/25/18 00:00 123 34 111/73 (86) 86 Nasal Cannula 3.00 04/24/18 23:00 121 26 106/70 (82) 100 Vapotherm 30.00 7.00 04/24/18 22:00 125 26 98/71 (80) 95 Vapotherm 30.00 7.00 04/24/18 21:15 92 Nasal Cannula 3.00 04/24/18 21:00 129 30 99/72 (81) 90 Vapotherm 30.00 7.00 04/24/18 20:00 95 Nasal Cannula 3.00 04/24/18 20:00 100.6 Nasal Cannula 3.00 04/24/18 20:00 128 27 99/61 (74) 90 Vapotherm 30.00 7.00 04/24/18 19:00 120 30 96/62 (73) 97 Vapotherm 30.00 7.00 04/24/18 19:00 120 04/24/18 18:00 125 29 93/53 (66) 90 Vapotherm 30.00 7.00 04/24/18 17:42 99.2 128 27 99/64 96 Nasal Cannula 3.00 04/24/18 17:00 121 30 114/71 (85) 98 Vapotherm 30.00 7.00 04/24/18 16:09 98.2 120 28 88/53 98 Nasal Cannula 3.00 04/24/18 16:00 120 29 88/53 (65) 90 Vapotherm 30.00 7.00 04/24/18 16:00 98.4 04/24/18 16:00 95 Nasal Cannula 3.50 04/24/18 15:55 98.4 121 20 106/58 100 Nasal Cannula 3.00 04/24/18 15:00 109 19 96/60 (72) 92 Vapotherm 30.00 7.00 04/24/18 14:00 98 29 99/68 (78) 92 Vapotherm 30.00 7.00 04/24/18 13:02 94 04/24/18 13:00 93 23 95/55 (68) 95 Vapotherm 30.00 7.00 04/24/18 12:00 98.9 96 9 89/49 (62) 89 Vapotherm 30.00 7.00 04/24/18 12:00 95 Nasal Cannula 3.50 04/24/18 11:00 103 27 96/60 (72) 92 Vapotherm 30.00 7.00 04/24/18 10:09 Nasal Cannula 3.00 04/24/18 10:00 104 22 82/45 (57) 95 Vapotherm 30.00 7.00 04/24/18 09:00 124 21 70/48 (55) 97 Vapotherm 30.00 7.00 04/24/18 08:00 95 Nasal Cannula 3.50 04/24/18 08:00 103 29 107/53 (71) 94 Vapotherm 30.00 7.00 04/24/18 07:31 102 04/24/18 07:00 104 28 89/52 (64) 93 Vapotherm 30.00 7.00 04/24/18 06:03 97 Nasal Cannula 4.00 04/24/18 06:00 101 27 87/60 (69) 96 Nasal Cannula 2.00 I & O 04/25/18 07:00 Intake Total 5330 ml Output Total 1045 ml Balance 4285 ml General Appearance: Anxious, Mild Distress, Obese HEENT: PERRL/EOMI, Pharynx Normal Neck: Non Tender Respiratory: No Accessory Muscle Use, No Respiratory Distress, Decreased Breath Sounds Cardiovascular: No JVD Peripheral Pulses: 2+ Dorsalis Pedis (R), 2+ Left Dors-Pedis (L) Gastrointestinal: non tender, soft, no organomegaly Extremity: Normal Capillary Refill, Normal Inspection, Normal Range of Motion, Non Tender, No Calf Tenderness Neurologic/Psychiatric: Alert, Oriented x3 Skin: Normal Color, Warm/Dry Lymphatic: No Adenopathy Results Lab Laboratory Tests 04/23/18 11:17 04/23/18 23:10 04/24/18 05:10 04/24/18 14:00 04/25/18 03:15 Assessment/Plan Assessment/Plan Lumbar spinal stenosis with radiculopathy s/p lumbar fusion, laminectomy and cage placement -Pain management ARA -monitor -IVF Hypotension pt is responding to IVF -IVF and monitor Hypomagnesium -replace HYponatremia -monitor Sinus tach- concentrated urine -will give 500 cc NS bolus and monitor anemia post op s/p transfusion - 1 unit PRBC -monitor Leukocytosis - probably secondary to surgery -monitor Atelectasis -IS, increase activity ICU psychosis/confusion -Start Risperdal 0.5mg BID 233 Transfer to 4th floor. LILIYA RENEE DO Apr 25, 2018 05:45
[2018-04-25] MEDS: PANTOPRAZOLE 40 MG (PROTONIX) TAB PO SCH (06:41)
[2018-04-25] MEDS: MAGNESIUM 1 GM/100 ML IVPB 100 ML IV SCH ×2 (06:41→07:59)
[2018-04-25] MEDS: HYDROcodone/APAP 5 MG/325 MG (LORTAB) TAB PO PRN (07:59)
--- NOTE | 2018-04-25 08:37 | Diagnostic Imaging Report ---
INDICATION: Dyspnea. COMPARISON: 03/29/2018. FINDINGS: A single frontal radiographic view of the chest was obtained and demonstrates mild cardiomegaly. The pulmonary vasculature is within normal limits. Sternotomy wires are noted. The lungs show partial obscuration of the left hemidiaphragm. The right lung is relatively clear. There is no large effusion on the right. No pneumothorax is seen on either side. The bony structures show no gross acute abnormalities. IMPRESSION: 1. Left basilar airspace disease, suspicious for effusion with atelectasis. Infiltrate is not entirely excluded. 2. Mild cardiomegaly. Dictated by: Dictated on workstation # [id number]
[2018-04-25] MEDS: DOCUSATE SODIUM 100 MG (COLACE) CAP PO SCH ×2 (09:08→21:12)
[2018-04-25] MEDS: MAGNESIUM OXIDE (MAG-OX)400 MG TAB PO SCH ×2 (09:08→21:12)
[2018-04-25] MEDS: FUROSEMIDE 20 MG (LASIX) TAB PO SCH (09:08)
[2018-04-25] MEDS: FINASTERIDE (PROSCAR) 5 MG TAB PO SCH (09:08)
[2018-04-25] MEDS: risperiDONE 0.25 MG (RisperDAL) TAB PO SCH ×2 (09:09→21:12)
--- NOTE | 2018-04-25 09:21 | Diagnostic Imaging Report ---
INDICATION: Lumbar spine fusion. TIME OF EXAMINATION: 08:41 a.m. FINDINGS: Two views of the lumbar spine demonstrate postop changes of posterior instrumented fusion with vertical stabilization rods and bipedicular screws extending from L3 through L5. Hardware appears intact. Alignment is normal. Vertebral body heights are maintained. Patient also appears to have an aortic stent graft. There is gaseous distention of small and large bowel loops throughout the abdomen consistent with ileus. IMPRESSION: 1. Postop changes of posterior instrumented fusion L3 through L5. No definite complicating features are seen. 2. Moderate gaseous distention of small and large bowel loops, perhaps on the basis of ileus. Dictated by: Dictated on workstation # [id number]
--- NOTE | 2018-04-25 09:37 | Progress Note (SOAP) ---
Subjective Date Seen by Provider: Apr 25, 2018 Time Seen by Provider: 07:00 Subjective/Events-last exam POD #2 s/p L3-4 DLIF, L4-5 TLIF/ laminectomy and PSIF. Developed some delerium the am. BP has improved after 1 unit PRBC yesterday. Review of Systems General: No Chills, No Night Sweats Pulmonary: No Dyspnea, No Cough Cardiovascular: No: Chest Pain Genitourinary: Other (oliguria) Musculoskeletal: back pain Neurological: Weakness, Numbness, Confusion; No: Change in speech Objective Exam Vital Signs Date Time Temp Pulse Resp B/P (MAP) Pulse Ox O2 Delivery O2 Flow Rate FiO2 04/25/18 08:00 95 Nasal Cannula 3.00 04/25/18 07:00 112 04/25/18 06:00 111 25 112/71 (85) 100 Nasal Cannula 3.00 04/25/18 05:00 113 32 120/65 (83) 91 Nasal Cannula 3.00 04/25/18 04:09 99.4 04/25/18 04:00 95 Nasal Cannula 3.00 04/25/18 04:00 110 24 97/68 (78) 100 Nasal Cannula 3.00 04/25/18 03:00 112 21 103/71 (82) 99 Nasal Cannula 3.00 04/25/18 02:00 116 23 102/65 (77) 97 Nasal Cannula 3.00 04/25/18 01:15 101.0 04/25/18 01:00 128 23 122/60 (80) 96 Nasal Cannula 3.00 04/25/18 01:00 126 04/25/18 00:00 101.4 Nasal Cannula 3.00 04/25/18 00:00 95 Nasal Cannula 3.00 04/25/18 00:00 123 34 111/73 (86) 86 Nasal Cannula 3.00 04/24/18 23:00 121 26 106/70 (82) 100 Vapotherm 30.00 7.00 04/24/18 22:00 125 26 98/71 (80) 95 Vapotherm 30.00 7.00 04/24/18 21:15 92 Nasal Cannula 3.00 04/24/18 21:00 129 30 99/72 (81) 90 Vapotherm 30.00 7.00 04/24/18 20:00 95 Nasal Cannula 3.00 04/24/18 20:00 100.6 Nasal Cannula 3.00 04/24/18 20:00 128 27 99/61 (74) 90 Vapotherm 30.00 7.00 04/24/18 19:00 120 30 96/62 (73) 97 Vapotherm 30.00 7.00 04/24/18 19:00 120 04/24/18 18:00 125 29 93/53 (66) 90 Vapotherm 30.00 7.00 04/24/18 17:42 99.2 128 27 99/64 96 Nasal Cannula 3.00 04/24/18 17:00 121 30 114/71 (85) 98 Vapotherm 30.00 7.00 04/24/18 16:09 98.2 120 28 88/53 98 Nasal Cannula 3.00 04/24/18 16:00 120 29 88/53 (65) 90 Vapotherm 30.00 7.00 04/24/18 16:00 98.4 04/24/18 16:00 95 Nasal Cannula 3.50 04/24/18 15:55 98.4 121 20 106/58 100 Nasal Cannula 3.00 04/24/18 15:00 109 19 96/60 (72) 92 Vapotherm 30.00 7.00 04/24/18 14:00 98 29 99/68 (78) 92 Vapotherm 30.00 7.00 04/24/18 13:02 94 04/24/18 13:00 93 23 95/55 (68) 95 Vapotherm 30.00 7.00 04/24/18 12:00 98.9 96 9 89/49 (62) 89 Vapotherm 30.00 7.00 04/24/18 12:00 95 Nasal Cannula 3.50 04/24/18 11:00 103 27 96/60 (72) 92 Vapotherm 30.00 7.00 04/24/18 10:09 Nasal Cannula 3.00 04/24/18 10:00 104 22 82/45 (57) 95 Vapotherm 30.00 7.00 I & O 04/25/18 07:00 Intake Total 5730 ml Output Total 1345 ml Balance 4385 ml Capillary Refill : General Appearance: No Apparent Distress Respiratory: No Accessory Muscle Use, No Respiratory Distress Cardiovascular: No Edema, Normal Peripheral Pulses Gastrointestinal: non tender, soft Extremity: Non Tender, No Calf Tenderness, No Pedal Edema Neurologic/Psychiatric: Alert Skin: Normal Color Other comments left L4/5 hip flexion Results Lab Laboratory Tests 04/24/18 11:58: Glucometer 198H 04/24/18 14:00: Hemoglobin 7.6L, Hematocrit 24L 04/24/18 15:04: Glucometer 157H 04/24/18 21:05: Glucometer 166H 04/25/18 03:15: White Blood Count 12.4H, Red Blood Count 2.67L, Hemoglobin 8.3L, Hematocrit 25L , Mean Corpuscular Volume 94, Mean Corpuscular Hemoglobin 31, Mean Corpuscular Hemoglobin Concent 33, Red Cell Distribution Width 16.1H, Platelet Count 396, Mean Platelet Volume 9.1, Neutrophils (%) (Auto) 78H, Lymphocytes (%) (Auto) 10L , Monocytes (%) (Auto) 12, Eosinophils (%) (Auto) 0, Basophils (%) (Auto) 0, Neutrophils # (Auto) 9.6H, Lymphocytes # (Auto) 1.2, Monocytes # (Auto) 1.5H, Eosinophils # (Auto) 0.0, Basophils # (Auto) 0.0, Sodium Level 133L, Potassium Level 4.6, Chloride Level 101, Carbon Dioxide Level 18L, Anion Gap 14, Blood Urea Nitrogen 25H, Creatinine 1.52H, Estimat Glomerular Filtration Rate 45, BUN/ Creatinine Ratio 16, Glucose Level 161H, Calcium Level 8.3L, Phosphorus Level 3.0, Magnesium Level 1.7L Assessment/Plan Assessment/Plan Assess & Plan/Chief Complaint Assessment: POD #2 s/p lumbar fusion CHF hypotension abl anemia CAROLINE diabetes Plan: plan to xfer back to floor continue fluids, will monitor for fluid overload scd back brace when OOB PT pain control - will monitor BP monitor labs lumbar x-ray today Clinical Quality Measures DVT/VTE Risk/Contraindication: Risk Factor Score Per Nursin RFS Level Per Nursing on Admit: 4+=Very High YANICK TORRES Apr 25, 2018 09:37
[2018-04-25] MEDS ORDERED: morphine INJ 4 MG/ML 1 ML (VIAL/SYRINGE) IVP PRN (10:30)
--- NOTE | 2018-04-25 11:24 | Physical Therapy Daily Note ---
PT Daily Note-Current Subjective Patient in bed pre tx, agrees to PT, has pain of 7/10 in low back. Patient just transferred to 430 on the medical floor. Appearance Patient in recliner post tx with nurse call, phone, tray, all needs met. Mental Status Patient Orientation: Person, Place, Situation Attachments: Oxygen, [place] Catheter, IV TLSO Transfers Functional [place] Measure 0=Not Assessed/NA 4=Minimal Assistance 1=Total Assistance 5=Supervision or Setup 2=Maximal Assistance 6=Modified [place] 3=Moderate Assistance 7=Complete IndependenceIRFPAI Quality Coding Scale 6 Independent with activity with or without an assistive device 5 Patient requires set up or clean up by helper. Patient completes activity by themselves 4 Supervision or touching assist (CGA). [place] provide cues , steadying assist 3 The helper provides less than half the effort to complete the activity 2 The helper provides more than half the effort to complete the activity 1 Dependent. The helper does all the effort to complete an activity 7 Patient refused to complete or attempt activity 9 The patient did not perform the activity before the current illness or injury 88 Not attempted due to Medical conditions or safety concerns Transfers (B, C, W/C) (FIM): 1 Scootin Rollin Supine to/from Sit: 2 Sit to/from Stand: 1 Bed to/from Chair: 1 Patient was able to assist with rolling, supine to sit and scooting but was dependent for the transfer. He is not able to bear any weight through his legs at this time due to weakness. Patient was transferred to a recliner at bedside. Weight Bearing Right Lower Extremity: Right Weight Bearing/Tolerated Left Lower Extremity: Left Weight Bearing/Tolerated Exercises Seated Therapy Exercises: Ankle pumps, Long arc quads Seated Reps: 15 patient was not able to perform a LAQ on the left side without assist Treatments bed mobility and transfers, functional strengthening Assessment Current Status: Poor Progress Patient is dependent for transfers PT Short Term Goals Short Term Goals Time Frame: May 03, 2018 Transfers (B,C,W/C) (FIM): 3 Gait (FIM): 1 Distance (FIM): 1=up to 49 ft Gait Distance Comment: 45' Gait Level of Assist: 4 Gait Assistive Device: FWW PT Back Maker Goals Nursing Home Goals PT Nursing Home Goals Time Frame: May 11, 2018 Transfers (B,C,W/C) (FIM): 5 Gait (FIM): 5 Gait distance (FIM): 3=150 ft Distance: 150' Gait Level of Assist: 5 Gait Assistive Device: FWW PT Plan Problem List Problem List: Activity Tolerance, Functional Strength, Safety, Balance, Gait, Transfer, Bed Mobility, ROM Treatment/Plan Treatment Plan: Continue Plan of Care Treatment Plan: Bed Mobility, Concurrent Therapy, Education, Functional Activity Brain, Functional Strength, Gait, Safety, Therapeutic Exercise, Transfers Treatment Duration: May 11, 2018 Frequency: 11 times per week Estimated Hrs Per Day: 1 hour per day Patient and/or Family Agrees t: Yes Safety Risks/Education Patient Education: Transfer Techniques, Reviewed Precautions, Correct Positioning, Reviewed Don/Doff Brace, Safety Issues Teaching Recipient: Patient Teaching Methods: Demonstration, Discussion Response to Teaching: Reinforcement Needed Time/GCodes Time In: 1055 Time Out: 1110 Total Billed Treatment Time: 15 Total Billed Treatment 1 visit FA 15' WILFREDO SEYMOUR PT Apr 25, 2018 11:24
[2018-04-25] MEDS ORDERED: PRAMIPEXOLE 0.5 MG TAB (MIRAPEX) PO NR (13:15)
[2018-04-25] MEDS ORDERED: MILK OF MAGNESIA 400 MG/5 ML 30 ML UDC PO PRN (13:15)
[2018-04-25] MEDS ORDERED: MILK OF MAGNESIA 400 MG/5 ML 30 ML UDC PO NR (13:15)
--- NOTE | 2018-04-25 15:03 | Physical Therapy Daily Note ---
PT Daily Note-Current Subjective Wants to return to bed. Voices that he does not think this therapist will be strong enough to assist him. Mental Status Patient Orientation: Person, Place, Time, Situation Transfers Functional [place] Measure 0=Not Assessed/NA 4=Minimal Assistance 1=Total Assistance 5=Supervision or Setup 2=Maximal Assistance 6=Modified [place] 3=Moderate Assistance 7=Complete IndependenceIRFPAI Quality Coding Scale 6 Independent with activity with or without an assistive device 5 Patient requires set up or clean up by helper. Patient completes activity by themselves 4 Supervision or touching assist (CGA). [place] provide cues , steadying assist 3 The helper provides less than half the effort to complete the activity 2 The helper provides more than half the effort to complete the activity 1 Dependent. The helper does all the effort to complete an activity 7 Patient refused to complete or attempt activity 9 The patient did not perform the activity before the current illness or injury 88 Not attempted due to Medical conditions or safety concerns Transfers (B, C, W/C) (FIM): 1 Scootin Rollin Supine to/from Sit: 1 Sit to/from Stand: 1 Bed to/from Chair: 1 (assist of 2 ) assist of 2 for all transfers. Weight Bearing Right Lower Extremity: Right Weight Bearing/Tolerated Left Lower Extremity: Left Weight Bearing/Tolerated Treatments Sit to stand with dep assist of 2 (this therapist and tech); transfer chair to bed dependent, pt with limited WB through his LE's. Sat EOB a few minutes, then dep of 2 to lie down. Dep of 2 to scoop up in bed. Pt in bed with needs met post treatment. Assessment LImited ability to WB through his legs; limited core activation with leaning forward in chair. Pt hesitant and fearful. Needs encouragment to participate and to stay on task. PT Short Term Goals Short Term Goals Time Frame: May 03, 2018 Transfers (B,C,W/C) (FIM): 3 Gait (FIM): 1 Distance (FIM): 1=up to 49 ft Gait Distance Comment: 45' Gait Level of Assist: 4 Gait Assistive Device: FWW PT Retirement Goals Fe[employer]ator Goals PT Retirement Goals Time Frame: May 11, 2018 Transfers (B,C,W/C) (FIM): 5 Gait (FIM): 5 Gait distance (FIM): 3=150 ft Distance: 150' Gait Level of Assist: 5 Gait Assistive Device: FWW PT Plan Problem List Problem List: Activity Tolerance, Functional Strength, Safety, Balance, Gait, Transfer, Bed Mobility Treatment/Plan Treatment Plan: Continue Plan of Care Treatment Plan: Bed Mobility, Concurrent Therapy, Education, Functional Activity Brain, Functional Strength, Gait, Safety, Therapeutic Exercise, Transfers Treatment Duration: May 11, 2018 Frequency: 11 times per week Estimated Hrs Per Day: 1 hour per day Patient and/or Family Agrees t: Yes Safety Risks/Education Patient Education: Transfer Techniques, Safety Issues Teaching Recipient: Patient Teaching Methods: Discussion Response to Teaching: Reinforcement Needed Time/GCodes Time In: 1405 Time Out: 1420 Total Billed Treatment Time: 15 Total Billed Treatment visit FA 15 KARLI NARANJO PT Apr 25, 2018 15:03
[2018-04-25] MEDS: TAMSULOSIN 0.4 MG (FLOMAX) CAP PO SCH (18:01)
--- NOTE | 2018-04-25 18:57 | Consultation ---
History of Present Illness History of Present Illness Patient Consulted On(soham/time) 04/25/18 18:51 Date Seen by Provider: Apr 25, 2018 Time Seen by Provider: 12:30 History of Present Illness This is a 77 year old male with a history of lumbar spinal stenosis who had laminectomy by Dr. Xie. I am asked to consult for medical management. Patient has a history of diabetes mellitus with neuropathy, Hypertension, chronic renal insufficiency. He complains of no BM since surgery. He also complains of restlessness in his upper shoulders and legs. Allergies and Home Medications Allergies Coded Allergies: No Known Drug Allergies (Unverified , 04/16/18) Home Medications Alfuzosin HCl 10 Mg Tab.er.24h, 10 MG PO DAILY, (Reported) Aspirin 325 Mg Tablet, 325 MG PO DAILY, (Reported) Baclofen 10 Mg Tablet, 20 MG PO HS, (Reported) TAKE 2 (10 MG) TABLETS AT BEDTIME Finasteride 5 Mg Tablet, 5 MG PO DAILY, (Reported) Furosemide 20 Mg Tablet, 20 MG PO DAILY, (Reported) Hydrocodone/Acetaminophen 1 Each Tablet, 1 EACH PO Q4H PRN for PAIN-MODERATE, ( Reported) Ipratropium/Albuterol Sulfate 3 Ml Ampul.neb, 3 ML IH Q8H PRN for SHORTNESS OF BREATH, (Reported) Latanoprost 2.5 Ml Drops, 1 DROP OU HS, (Reported) Magnesium Oxide 400 Mg Tablet, 400 MG PO BID, (Reported) Metformin HCl 1,000 Mg Tablet, 1,000 MG PO BID, (Reported) Polyethylene Glycol 3350 17 Gm Powd.pack, 17 GM PO BID PRN for CONSTIPATION-2ND LINE, (Reported) Pramipexole Di-HCl 1.5 Mg Tablet, 1.5 MG PO TID PRN for RESTLESSNESS, (Reported) Sennosides 8.6 Mg Tablet, 8.6 MG PO TID PRN for CONSTIPATION-5TH LINE, (Reported ) Patient Home Medication List Home Medication List Reviewed: Yes Past Bjuqlpc-Veeccr-Wtnklp Hx Patient Social History Alcohol Use: Denies Use Recreational Drug Use: No Smoking Status: Former Smoker Type Used: Cigarettes Former Smoker, Quit: Apr 16, 1985 2nd Hand Smoke Exposure: No Recent Foreign Travel: No Contact w/Someone Who Travel: No Recent Infectious Disease Expo: No Recent Hopitalizations: No Immunizations Up To Date Tetanus Booster (TDap): More than 5yrs Date of Pneumonia Vaccine: Aug 21, 2017 Seasonal Allergies Seasonal Allergies: No Past Medical History Surgeries: Yes (4 VESSEL CABG; AAA REPAIR WITH STENT) Cardiac, CABG, Vascular Surgery Respiratory: Yes ( STATES PT WAS PRESCRIBED O2 FOR HOME USE, BUT NON- COMPLIANT) Currently Using CPAP: No Cardiac: Yes (AAA STENT) Aneurysm, Coronary Artery Disease, High Cholesterol, Hypertension Neurological: Yes (TRIGEMINAL NEURALGIA) Reproductive Disorders: No Genitourinary: Yes (FREQUENCY ) Gastrointestinal: Yes Chronic Constipation Musculoskeletal: Yes (STENOSIS) Chronic Back Pain, Spasms Endocrine: No Diabetes, Non-Insulin dep HEENT: Yes (GLASSES) Cataract, Glaucoma Loss of Vision: Bilateral Hearing Impairment: Hard of Hearing Cancer: No Psychosocial: No Integumentary: No Blood Disorders: No Adverse Reaction/Blood Tranf: No Family Medical History Patient reports no known family medical history. Review of Systems-General Constitutional: weakness EENTM: No see HPI, No no symptoms reported, No ear discharge, No hearing loss, No ear pain, No blurred vision, No double vision, No eye pain, No tearing, No vision loss, No dental problems, No hoarseness, No mouth pain, No mouth swelling , No epistaxis, No nose congestion, No nose pain, No throat pain, No throat swelling, No other Respiratory: No no symptoms reported, No see HPI, No cough, No dyspnea on exertion, No hemoptysis, No orthopnea, No phlegm, No short of breath, No stridor , No wheezing, No other Cardiovascular: No no symptoms reported, No see HPI, No chest pain, No edema, No Hx of Intervention, No palpitations, No syncope, No vascular heart diseas, No other Gastrointestinal: constipation Genitourinary: No no symptoms reported, No see HPI, No decreased output, No discharge, No dysuria, No frequency, No hematuria, No hesitancy, No incontinence , No nocturia, No pain, No other Musculoskeletal: back pain, muscle twitching (in upper shoulders) Psychiatric/Neurological: Numbness, Weakness Physical Exam-General Problems Physical Exam Vital Signs Vital Signs - First Documented 04/23/18 18:25 O2 Flow Rate 4.00 Capillary Refill : General Appearance: WD/WN, no apparent distress HEENT: normal ENT inspection Neck: supple Respiratory: lungs clear Cardiovascular: regular rate, rhythm, systolic murmur, gallop/S4 Gastrointestinal: normal bowel sounds, non tender, soft Back: no CVA tenderness Extremities: no pedal edema, no calf tenderness Neurologic/Psychiatric: alert, oriented x 3 Skin: warm/dry Comments Laboratory Tests 04/24/18 21:05: Glucometer 166H 04/25/18 03:15: White Blood Count 12.4H, Red Blood Count 2.67L, Hemoglobin 8.3L, Hematocrit 25L , Mean Corpuscular Volume 94, Mean Corpuscular Hemoglobin 31, Mean Corpuscular Hemoglobin Concent 33, Red Cell Distribution Width 16.1H, Platelet Count 396, Mean Platelet Volume 9.1, Neutrophils (%) (Auto) 78H, Lymphocytes (%) (Auto) 10L , Monocytes (%) (Auto) 12, Eosinophils (%) (Auto) 0, Basophils (%) (Auto) 0, Neutrophils # (Auto) 9.6H, Lymphocytes # (Auto) 1.2, Monocytes # (Auto) 1.5H, Eosinophils # (Auto) 0.0, Basophils # (Auto) 0.0, Sodium Level 133L, Potassium Level 4.6, Chloride Level 101, Carbon Dioxide Level 18L, Anion Gap 14, Blood Urea Nitrogen 25H, Creatinine 1.52H, Estimat Glomerular Filtration Rate 45, BUN/ Creatinine Ratio 16, Glucose Level 161H, Calcium Level 8.3L, Phosphorus Level 3.0, Magnesium Level 1.7L 04/25/18 09:51: Glucometer 200H 04/25/18 12:26: Lab Scanned Report Transfusion Reaction Form 04/25/18 14:33: Glucometer 198H Assessment/Plan Assessment/Plan Admission Diagnosis/Plan 1. Lumbar Spinal Stenosis--S/P laminectomy--pain control and PT--will likely need rehab 2. Hypertension with hypotension post-op--BP currently stable 3. Acute on Chronic Anemia--Monitor H/H, Had 1u pRBCs yesterday 4. Diabetes mellitus--on Accuchecks with SSI 5. Restlessness of Shoulders--restart mirapex routinely Clinical Quality Measures DVT/VTE Risk/Contraindication: Risk Factor Score Per Nursin RFS Level Per Nursing on Admit: 4+=Very High MAGED COLBERT DO Apr 25, 2018 6:57 pm
[2018-04-25] MEDS: PRAMIPEXOLE 0.5 MG TAB (MIRAPEX) PO SCH (21:12)
[2018-04-25] MEDS: POLYETHYLENE GLYCOL 17 GM (MIRALAX) PACK PO SCH (21:12)
[2018-04-25] MEDS: LATANOPROST 0.005% (XALATAN) OPHTH SOLN 2.5 ML OU SCH (21:13)
[2018-04-26 03:20] VITALS: BP 108/67
[2018-04-26 06:02] LABS: BASOPHILS % (AUTO) 0 % (0-10); EOSINOPHILS % (AUTO) 0 % (0-10); HEMATOCRIT 27 % (40-54); HEMOGLOBIN 8.7 G/DL (13.3-17.7); LYMPHOCYTES # (AUTO) 0.7 X 10^3 (1.0-4.0); LYMPHOCYTES % (AUTO) 7 % (12-44); MEAN CORPUSCULAR HEMOGLOBIN 31 PG (25-34); MEAN CORPUSCULAR HGB CONC 33 G/DL (32-36); MEAN CORPUSCULAR VOLUME 94 FL (80-99); MEAN PLATELET VOLUME 9.4 FL (7.4-10.4); MONOCYTES # (AUTO) 1.1 X 10^3 (0.0-1.0); MONOCYTES % (AUTO) 11 % (0-12); NEUTROPHILS # (AUTO) 8.4 X 10^3 (1.8-7.8); NEUTROPHILS % (AUTO) 82 % (42-75); PLATELET COUNT 445 10^3/uL (130-400); RED BLOOD COUNT 2.85 10^6/uL (4.35-5.85); RED CELL DISTRIBUTION WIDTH 16.1 % (10.0-14.5); WHITE BLOOD COUNT 10.3 10^3/uL (4.3-11.0)
[2018-04-26] MEDS: PANTOPRAZOLE 40 MG (PROTONIX) TAB PO SCH (06:12)
[2018-04-26] MEDS: MULTIVIT W/MINERALS TAB (THERAGRAN M) PO SCH (06:12)
[2018-04-26 06:25] LABS: BAND NEUTROPHILS 2 %; BASOPHILS % (MANUAL) 0 %; CREATININE SERUM 1.2 MG/DL (0.60-1.30); EOSINOPHILS % (MANUAL) 0 %; LYMPHOCYTES % (MANUAL) 5 %; MAGNESIUM 2.2 MG/DL (1.8-2.4); MONOCYTES % (MANUAL) 4 %; NEUTROPHILS % (MANUAL) 89 %; PHOSPHORUS 2.3 MG/DL (2.3-4.7); POLYCHROMASIA SLIGHT; POTASSIUM 4.7 MMOL/L (3.6-5.0)
[2018-04-26 06:26] LABS: ANISOCYTOSIS MODERATE; HYPOCHROMASIA MODERATE
[2018-04-26] MEDS: inSUlin ASPART (NovoLOG) 1 UNIT/0.01 ML (CHARGE PER UNIT) SC SCH ×4 (06:30→20:55)
[2018-04-26 06:44] VITALS: BP 122/78
[2018-04-26] MEDS: oxyCODONE/APAP 5/325MG (PERCOCET 5) TABLET PO PRN ×3 (06:49→20:42)
--- NOTE | 2018-04-26 07:34 | Pulmonary Progress Note ---
Subjective Time Seen by Provider: 07:34 Exam Exam Vital Signs Date Time Temp Pulse Resp B/P (MAP) Pulse Ox O2 Delivery O2 Flow Rate FiO2 04/26/18 06:44 97.9 107 20 122/78 (93) 96 Nasal Cannula 3.00 04/26/18 03:20 99.3 102 18 108/67 (81) 93 Nasal Cannula 3.00 04/25/18 23:57 99.6 100 20 125/77 (93) 93 Nasal Cannula 3.00 04/25/18 21:00 Nasal Cannula 3.00 04/25/18 20:29 Nasal Cannula 3.00 04/25/18 19:10 98.1 96 20 100/65 (77) 98 Nasal Cannula 3.00 04/25/18 15:35 97.6 97 20 100/68 (79) 94 Nasal Cannula 3.00 04/25/18 11:42 97.0 88 20 100/67 (78) 96 Nasal Cannula 3.00 04/25/18 11:05 99.1 04/25/18 11:00 95 Nasal Cannula 3.00 04/25/18 10:00 107 22 110/68 (82) 100 Nasal Cannula 3.00 04/25/18 09:00 113 20 109/63 (78) 99 Nasal Cannula 3.00 04/25/18 08:00 99.1 04/25/18 08:00 95 Nasal Cannula 3.00 04/25/18 08:00 110 24 124/77 (93) 96 Nasal Cannula 3.00 I & O 04/26/18 07:00 Intake Total 825 ml Output Total 1805 ml Balance -980 ml General Appearance: No Apparent Distress HEENT: PERRL/EOMI, Pharynx Normal Neck: Non Tender Respiratory: No Accessory Muscle Use, No Respiratory Distress Cardiovascular: No Edema, Normal Peripheral Pulses Peripheral Pulses: 2+ Dorsalis Pedis (R), 2+ Left Dors-Pedis (L) Gastrointestinal: normal bowel sounds, non tender, soft Extremity: Non Tender, No Calf Tenderness, No Pedal Edema Neurologic/Psychiatric: Alert Skin: Normal Color Lymphatic: No Adenopathy Results Lab Laboratory Tests 04/24/18 14:00 04/25/18 03:15 04/26/18 05:41 Assessment/Plan Assessment/Plan Lumbar spinal stenosis with radiculopathy s/p lumbar fusion, laminectomy and cage placement -Pain management ARA -monitor Cardiomyopathy -IVF heplocked -Continue lasix 20mg daily anemia post op s/p transfusion - s/p 1 unit PRBC -monitor Leukocytosis - probably secondary to surgery -monitor Atelectasis -IS, increase activity ICU psychosis/confusion -Start Risperdal 0.5mg BID 232 LILIYA RENEE DO Apr 26, 2018 07:34
[2018-04-26] MEDS ORDERED: FUROSEMIDE 40 MG/4 ML INJ (LASIX) IVP NR (07:45)
[2018-04-26] MEDS: FUROSEMIDE 20 MG (LASIX) TAB PO SCH (07:45)
[2018-04-26] MEDS ORDERED: KCL 20 MEQ TAB (K-DUR) PO NR (07:45)
[2018-04-26] MEDS ORDERED: KCL 20 MEQ TAB (K-DUR) PO ONE (07:46)
[2018-04-26] MEDS ORDERED: FUROSEMIDE 40 MG/4 ML INJ (LASIX) ONE (07:47)
[2018-04-26] MEDS: PRAMIPEXOLE 0.5 MG TAB (MIRAPEX) PO SCH ×3 (07:51→20:41)
[2018-04-26] MEDS: FINASTERIDE (PROSCAR) 5 MG TAB PO SCH (07:51)
[2018-04-26] MEDS: DOCUSATE SODIUM 100 MG (COLACE) CAP PO SCH ×2 (07:51→20:42)
[2018-04-26] MEDS: MAGNESIUM OXIDE (MAG-OX)400 MG TAB PO SCH ×2 (07:51→20:41)
[2018-04-26] MEDS: risperiDONE 0.25 MG (RisperDAL) TAB PO SCH ×2 (07:51→20:42)
[2018-04-26 08:00] VITALS: BP 100/64
--- NOTE | 2018-04-26 09:16 | Diagnostic Imaging Report ---
INDICATION: Shortness of breath. EXAMINATION: Portable chest at 3:22 AM. FINDINGS: There are postop changes from CABG surgery. There is cardiomegaly with pulmonary vascular congestion. IMPRESSION: Congestive heart failure. No significant change from the previous day. Dictated by: Dictated on workstation # [id number]
--- NOTE | 2018-04-26 10:07 | Physical Therapy Daily Note ---
PT Daily Note-Current Subjective Patient in bed pre tx, agrees to PT, no complaints of pain at rest. Patient very reluctant to participate in therapy and uses delaying tactics to stall movement/transfers. Appearance Patient in recliner post tx with nurse call, phone, tray, all needs met. Mental Status Patient Orientation: Person, Place, Situation Attachments: Oxygen TLSO Transfers Functional [place] Measure 0=Not Assessed/NA 4=Minimal Assistance 1=Total Assistance 5=Supervision or Setup 2=Maximal Assistance 6=Modified [place] 3=Moderate Assistance 7=Complete IndependenceIRFPAI Quality Coding Scale 6 Independent with activity with or without an assistive device 5 Patient requires set up or clean up by helper. Patient completes activity by themselves 4 Supervision or touching assist (CGA). [place] provide cues , steadying assist 3 The helper provides less than half the effort to complete the activity 2 The helper provides more than half the effort to complete the activity 1 Dependent. The helper does all the effort to complete an activity 7 Patient refused to complete or attempt activity 9 The patient did not perform the activity before the current illness or injury 88 Not attempted due to Medical conditions or safety concerns Transfers (B, C, W/C) (FIM): 1 Scootin Rollin Supine to/from Sit: 2 Sit to/from Stand: 1 Bed to/from Chair: 1 Patient was able to assist with supine to sit and scooting using his arms. He was dependent for all other mobility including transfers. Patient performed stand pivot transfer to the recliner. His legs buckle during the transfer every time. He cannot seem to bear much if any weight through his legs. Weight Bearing Right Lower Extremity: Right Weight Bearing/Tolerated Left Lower Extremity: Left Weight Bearing/Tolerated Treatments bed mobility and transfers Assessment Current Status: Poor Progress no change in mobility PT Short Term Goals Short Term Goals Time Frame: May 03, 2018 Transfers (B,C,W/C) (FIM): 3 Gait (FIM): 1 Distance (FIM): 1=up to 49 ft Gait Distance Comment: 45' Gait Level of Assist: 4 Gait Assistive Device: FWW PT Care Home Goals Care Home Goals PT Silk Trimmer Goals Time Frame: May 11, 2018 Transfers (B,C,W/C) (FIM): 5 Gait (FIM): 5 Gait distance (FIM): 3=150 ft Distance: 150' Gait Level of Assist: 5 Gait Assistive Device: FWW PT Plan Problem List Problem List: Activity Tolerance, Functional Strength, Safety, Balance, Gait, Transfer, Bed Mobility, ROM Treatment/Plan Treatment Plan: Continue Plan of Care Treatment Plan: Bed Mobility, Concurrent Therapy, Education, Functional Activity Brain, Functional Strength, Gait, Safety, Therapeutic Exercise, Transfers Treatment Duration: May 11, 2018 Frequency: 11 times per week Estimated Hrs Per Day: 1 hour per day Patient and/or Family Agrees t: Yes Safety Risks/Education Patient Education: Transfer Techniques, Reviewed Precautions, Correct Positioning, Reviewed Don/Doff Brace, Safety Issues Teaching Recipient: Patient Teaching Methods: Demonstration, Discussion Response to Teaching: Reinforcement Needed Time/GCodes Time In: 0940 Time Out: 09 Total Billed Treatment Time: 15 Total Billed Treatment 1 visit FA 15' WILFREDO SEYMOUR PT Apr 26, 2018 10:07
--- NOTE | 2018-04-26 11:00 | Occupational Therapy Eval ---
OT Evaluation-General/PLF Medical Diagnosis Admission Date Apr 23, 2018 at 10:39 Medical Diagnosis: stenosis Onset Date: Apr 23, 2018 Therapy Diagnosis Therapy Diagnosis: decr self care, decr funct mobility, decr act leyda, weakness Height/Weight Height (Feet): 6 Height (Inches): 1.00 Weight (Pounds): 242 Weight (Ounces): 0.7 Precautions Precautions/Isolations: Standard Precautions Safety Interventions: Bed Exit Alarm Weight Bear Status back brace on when out of bed Referral Physician: Rojas Referral Reason: Evaluation/Treatment Medical History Pertinent Medical History: CABG, CAD, DM, Heart Failure, Neuropathy, Renal Insufficiency Additional Medical History AAA with stent. Trigeminal neuralgia. Chronic back pain, spasms. Chronic constipation. Cataracts, glaucoma. hard of hearing Current History L3-4, L4-5 TLIF, laminectomy on 04-23-18. Anemia. Hypotension. Reviewed History: Yes Social History Home: Single Level Current Living Status: Spouse Steps Into Home: 3 ADL-Prior Level of Function ADL PLOF Comments Pt reported that he was previously able to manage his basic self care except for he occasionally needed help with shoes and socks. He toileted, using FWW. 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 DME/Equipment: Bath Chair, Shower Hose Exchange Operator, Tub/Shower OT Current Status Subjective Pt seen in room, up in recliner, agreeable to OT. Pain rated 0/10 but he said he was exhausted. Appearance Alert, cooperative. Eyes closed much of the time Mental Status/Objective Patient Orientation: Person, Place, Situation Attachments: [place] Catheter, IV Current Glasses/Contacts: Yes Hearing Aids: No Dentures/Partials: No (has just a couple teeth) Hand Dominance: Right Upper Extremity ROM Grossly WFL bilat Upper Extremity Strength Grossly 3+/5 bilat ADL-Treatment ADL-Current Pt was able to get a drink and said he can feed himself. He transferred from bed to recliner with PT with two person max assist and has been unable to bear weight in LEs. He had back brace on. Declined to try to manage socks. Pt asked questions about Ue exercise and was shown one UE ex that he can do while up in chair to strengthen arms to help with transfers. Return demo.He declined to do more than one rep. Functional [place] Measure 0=Not Assessed/NA 4=Minimal Assistance 1=Total Assistance 5=Supervision or Setup 2=Maximal Assistance 6=Modified [place] 3=Moderate Assistance 7=Complete IndependenceIRFPAI Quality Coding Scale 6 Independent with activity with or without an assistive device 5 Patient requires set up or clean up by helper. Patient completes activity by themselves 4 Supervision or touching assist (CGA). [place] provide cues , steadying assist 3 The helper provides less than half the effort to complete the activity 2 The helper provides more than half the effort to complete the activity 1 Dependent. The helper does all the effort to complete an activity 7 Patient refused to complete or attempt activity 9 The patient did not perform the activity before the current illness or injury 88 Not attempted due to Medical conditions or safety concerns Education OT Patient Education: Exercise program, Purpose of tx/functional activities, Rehab process Teaching Recipient: Patient Teaching Methods: Demonstration, Discussion Response to Teaching: Verbalize Understanding, Return Demonstration, Reinforcement Needed OT Fci Goals Fci Goals Time Frame: May 04, 2018 Eating (FIM): 6 Grooming(FIM): 5 Bathing(FIM): 3 Upper Body Dressing(FIM): 5 Lower Body Dressing(FIM): 3 Toileting(FIM): 3 Toilet/Commode Transfer(FIM): 3 Additional Goals: 1-Demonstrate ADL Tasks, 2-Verbalize Understanding, 3- ImproveStrength/Brain 1=Demonstrate adherence to instructed precautions during ADL tasks. 2=Patient will verbalize/demonstrate understanding of assistive devices/ modifications for ADL. 3=Patient will improve strength/tolerance for activity to enable patient to perform ADL's. OT Education/Plan Problem List/Assessment Assessment: Decreased Activ Tolerance, Decreased UE Strength, Dependent Transfers, Impaired Bed Mobility, Impaired Self-Care Skills Pt would benefit from skilled OT to increase his independence in basic self care Discharge Recommendations Plan/Recommendations: Continue POC Therapy D/C Recommendations: Residential (TCU/NH) Treatment Plan/Plan of Care Treatment,Training & Education: Yes Patient would benefit from OT for education, treatment and training to promote independence in ADL's, mobility, safety and/or upper extremity function for ADL' s. Plan of Care: ADL Retraining, Functional Mobility, UE Funct Exercise/Act, UE Neuromus Re-Ed/Coord Treatment Duration: May 04, 2018 Frequency: 5 times per week Estimated Hrs Per Day: .5 hour per day Agreement: Yes Rehab Potential: Fair Time/GCodes Start Time: 10:30 Stop Time: 10:50 Total Time Billed (hr/min): 20 Billed Treatment Time visit, 20 minutes evaluation moderate intensity FITZ SHAVER OT Apr 26, 2018 11:00
[2018-04-26 12:00] VITALS: BP 110/75
--- NOTE | 2018-04-26 12:34 | Progress Note (SOAP) ---
Subjective Date Seen by Provider: Apr 26, 2018 Time Seen by Provider: 12:31 Subjective/Events-last exam Fwup lumbar spinal stenosis--S/P surgery, post-op anemia, DMII, renal insufficiency, shoulder restlessness, HTN. Sitting up in the chair with a blanket over his head because he can't get back in bed. Finally worked with PT some today as he has been refusing to get up. Objective Exam Vital Signs Date Time Temp Pulse Resp B/P (MAP) Pulse Ox O2 Delivery O2 Flow Rate FiO2 04/26/18 08:00 99.0 105 16 100/64 (76) 92 Nasal Cannula 3.00 04/26/18 06:44 97.9 107 20 122/78 (93) 96 Nasal Cannula 3.00 04/26/18 03:20 99.3 102 18 108/67 (81) 93 Nasal Cannula 3.00 04/25/18 23:57 99.6 100 20 125/77 (93) 93 Nasal Cannula 3.00 04/25/18 21:00 Nasal Cannula 3.00 04/25/18 20:29 Nasal Cannula 3.00 04/25/18 19:10 98.1 96 20 100/65 (77) 98 Nasal Cannula 3.00 04/25/18 15:35 97.6 97 20 100/68 (79) 94 Nasal Cannula 3.00 I & O 04/26/18 07:00 Intake Total 825 ml Output Total 1805 ml Balance -980 ml Capillary Refill : General Appearance: No Apparent Distress Neck: Supple Respiratory: Lungs Clear Cardiovascular: Regular Rate, Rhythm Gastrointestinal: normal bowel sounds, non tender, soft Extremity: Non Tender, No Calf Tenderness, No Pedal Edema Neurologic/Psychiatric: Alert, Oriented x3 Results Lab Laboratory Tests 04/25/18 14:33: Glucometer 198H 04/25/18 19:26: Glucometer 151H 04/26/18 04:39: Glucometer 229H 04/26/18 05:41: White Blood Count 10.3, Red Blood Count 2.85L, Hemoglobin 8.7L, Hematocrit 27L, Mean Corpuscular Volume 94, Mean Corpuscular Hemoglobin 31, Mean Corpuscular Hemoglobin Concent 33, Red Cell Distribution Width 16.1H, Platelet Count 445H, Mean Platelet Volume 9.4, Neutrophils (%) (Auto) 82H, Lymphocytes (%) (Auto) 7L , Monocytes (%) (Auto) 11, Eosinophils (%) (Auto) 0, Basophils (%) (Auto) 0, Neutrophils # (Auto) 8.4H, Lymphocytes # (Auto) 0.7L, Monocytes # (Auto) 1.1H, Eosinophils # (Auto) 0.0, Basophils # (Auto) 0.0, Neutrophils % (Manual) 89, Lymphocytes % (Manual) 5, Monocytes % (Manual) 4, Eosinophils % (Manual) 0, Basophils % (Manual) 0, Band Neutrophils 2, Polychromasia SLIGHT, Hypochromasia MODERATE, Anisocytosis MODERATE, Sodium Level 135, Potassium Level 4.7, Chloride Level 101, Carbon Dioxide Level 20L, Anion Gap 14, Blood Urea Nitrogen 20H, Creatinine 1.20, Estimat Glomerular Filtration Rate 59, BUN/Creatinine Ratio 17, Glucose Level 188H, Calcium Level 9.0, Phosphorus Level 2.3, Magnesium Level 2.2 04/26/18 06:37: Glucometer 189H 04/26/18 10:03: Glucometer 303H Assessment/Plan Assessment/Plan Assess & Plan/Chief Complaint 1. Lumbar Spinal Stenosis--S/P laminectomy--pain control and continue PT/OT-- rehab eval but discussed that needs to increase activity or will not qualify and will have to go to SNF 2. Hypertension with hypotension post-op--BP currently stable 3. Acute on Chronic Anemia--Monitor H/H 4. Diabetes mellitus--on Accuchecks with SSI 5. Restlessness of Shoulders--mirapex helping Clinical Quality Measures DVT/VTE Risk/Contraindication: Risk Factor Score Per Nursin RFS Level Per Nursing on Admit: 4+=Very High MAGED COLBERT DO Apr 26, 2018 12:34
--- NOTE | 2018-04-26 14:34 | Physical Therapy Daily Note ---
PT Daily Note-Current Subjective Attempted to see pt at 1300, he had just gotten lunch and wanted to sit up to eat. Returned at 1340, pt agreeable to return to bed. Pain Numeric Pain Scale: 8 Location: Lower Location Body Site: Back (surgical site) Pain Description: Ache, Pressure Comment: Pt moans / wimpers with movement. Mental Status Patient Orientation: Person, Place, Time, Situation Attachments: Oxygen, IV Transfers Functional [place] Measure 0=Not Assessed/NA 4=Minimal Assistance 1=Total Assistance 5=Supervision or Setup 2=Maximal Assistance 6=Modified [place] 3=Moderate Assistance 7=Complete IndependenceIRFPAI Quality Coding Scale 6 Independent with activity with or without an assistive device 5 Patient requires set up or clean up by helper. Patient completes activity by themselves 4 Supervision or touching assist (CGA). [place] provide cues , steadying assist 3 The helper provides less than half the effort to complete the activity 2 The helper provides more than half the effort to complete the activity 1 Dependent. The helper does all the effort to complete an activity 7 Patient refused to complete or attempt activity 9 The patient did not perform the activity before the current illness or injury 88 Not attempted due to Medical conditions or safety concerns Transfers (B, C, W/C) (FIM): 1 Scootin Rollin Supine to/from Sit: 1 Sit to/from Stand: 1 Bed to/from Chair: 1 Assist of 2 for all functional transfers. Limited ability to WB through his legs and lacks hip extension due to not putting weight through legs. Assist of 2 to transfer to the bed and assist of 2 to lie him down. Pt in left sidelying post treatment. Brace in situ for transfer, removed once in bed. Weight Bearing Right Lower Extremity: Right Weight Bearing/Tolerated Left Lower Extremity: Left Weight Bearing/Tolerated Treatments Limited ability to activate any musculature left LE, he does demonstrate muscle firing for movement of the leg but unable to move through range or effectively move his leg to position it. Unable to attain or hold left LE in hooklying position. Discussed with nursing concerns regarding left LE weakness. Nursing to follow up with when he rounds tomorrow. Assessment Current Status: Poor Progress Limited functional progress noted at this time. Unable to bear weight to transfer and is assist of 2 for all transfers. PT Short Term Goals Short Term Goals Time Frame: May 03, 2018 Gait (FIM): 1 Distance (FIM): 1=up to 49 ft Gait Distance Comment: 45' Gait Level of Assist: 4 Gait Assistive Device: FWW PT Medical Planner Goals Medical Planner Goals PT Medical Planner Goals Time Frame: May 11, 2018 Transfers (B,C,W/C) (FIM): 5 Gait (FIM): 5 Gait distance (FIM): 3=150 ft Distance: 150' Gait Level of Assist: 5 Gait Assistive Device: FWW PT Plan Problem List Problem List: Activity Tolerance, Functional Strength, Safety, Balance, Gait, Transfer, Bed Mobility Treatment/Plan Treatment Plan: Continue Plan of Care Treatment Plan: Bed Mobility, Concurrent Therapy, Education, Functional Activity Brain, Functional Strength, Gait, Safety, Therapeutic Exercise, Transfers Treatment Duration: May 11, 2018 Frequency: 11 times per week Estimated Hrs Per Day: 1 hour per day Patient and/or Family Agrees t: Yes Safety Risks/Education Patient Education: Transfer Techniques, Safety Issues Teaching Recipient: Patient Teaching Methods: Discussion Response to Teaching: Reinforcement Needed Discharge Recommendations Therapy D/C Recommendations: Correction (TCU/NH) Time/GCodes Time In: 1340 Time Out: 1405 Total Billed Treatment Time: 25 Total Billed Treatment visit FA 25 KARLI NARANJO PT Apr 26, 2018 14:34
[2018-04-26 15:29] VITALS: BP 110/75
[2018-04-26] MEDS: TAMSULOSIN 0.4 MG (FLOMAX) CAP PO SCH (17:38)
[2018-04-26 20:30] VITALS: BP 110/71
[2018-04-26] MEDS: LATANOPROST 0.005% (XALATAN) OPHTH SOLN 2.5 ML OU SCH (20:42)
[2018-04-26] MEDS: POLYETHYLENE GLYCOL 17 GM (MIRALAX) PACK PO SCH (20:42)
[2018-04-27 03:43] LABS: BASOPHILS % (AUTO) 0 % (0-10); EOSINOPHILS # (AUTO) 0.1 10^3/uL (0.0-0.3); EOSINOPHILS % (AUTO) 1 % (0-10); HEMATOCRIT 26 % (40-54); HEMOGLOBIN 8.7 G/DL (13.3-17.7); LYMPHOCYTES % (AUTO) 12 % (12-44); MEAN CORPUSCULAR HEMOGLOBIN 31 PG (25-34); MEAN CORPUSCULAR HGB CONC 33 G/DL (32-36); MEAN CORPUSCULAR VOLUME 94 FL (80-99); MEAN PLATELET VOLUME 9.1 FL (7.4-10.4); MONOCYTES % (AUTO) 12 % (0-12); NEUTROPHILS # (AUTO) 6.2 X 10^3 (1.8-7.8); NEUTROPHILS % (AUTO) 75 % (42-75); PLATELET COUNT 426 10^3/uL (130-400); RED CELL DISTRIBUTION WIDTH 15.8 % (10.0-14.5); WHITE BLOOD COUNT 8.3 10^3/uL (4.3-11.0)
[2018-04-27 04:02] LABS: BUN/CREATININE RATIO 17; CALCIUM 9.2 MG/DL (8.5-10.1); CARBON DIOXIDE 20 MMOL/L (21-32); CHLORIDE 100 MMOL/L (98-107); CREATININE SERUM 1.16 MG/DL (0.60-1.30); GFR ESTIMATED > 60; GLUCOSE 152 MG/DL (70-105); MAGNESIUM 1.9 MG/DL (1.8-2.4); PHOSPHORUS 2.5 MG/DL (2.3-4.7); POTASSIUM 4.6 MMOL/L (3.6-5.0); SODIUM 134 MMOL/L (135-145)
[2018-04-27 04:17] VITALS: BP 112/70
--- NOTE | 2018-04-27 06:12 | Progress Note (SOAP) ---
Subjective Date Seen by Provider: Apr 27, 2018 Time Seen by Provider: 06:10 Subjective/Events-last exam TIFFANIE. Pain is improving but LLE weakness persists. He is agreeable to SNF placement. He has no headaches or N/V. Objective Exam Vital Signs Date Time Temp Pulse Resp B/P (MAP) Pulse Ox O2 Delivery O2 Flow Rate FiO2 04/26/18 20:30 98.1 110 16 110/71 (84) 91 Nasal Cannula 3.00 04/26/18 20:00 93 Room Air 04/26/18 18:42 91 Nasal Cannula 5.00 04/26/18 15:29 98.7 108 18 110/75 (87) 93 Room Air 04/26/18 12:00 98.7 110 18 110/75 (87) 93 Room Air 04/26/18 09:00 93 Room Air 04/26/18 08:00 99.0 105 16 100/64 (76) 92 Nasal Cannula 3.00 04/26/18 06:44 97.9 107 20 122/78 (93) 96 Nasal Cannula 3.00 I & O 04/27/18 07:00 Intake Total 1250 ml Output Total 1350 ml Balance -100 ml Capillary Refill : General Appearance: No Apparent Distress Extremity: Other (LLE: 3/5 hip flexor, quad, SILT, 5/5 domi dorsiflexion, wound CDI) Results Lab Laboratory Tests 04/26/18 06:37: Glucometer 189H 04/26/18 10:03: Glucometer 303H 04/26/18 13:15: Glucometer 173H 04/26/18 15:30: Glucometer 157H 04/26/18 20:29: Glucometer 186H 04/27/18 03:35: White Blood Count 8.3, Red Blood Count 2.80L, Hemoglobin 8.7L, Hematocrit 26L, Mean Corpuscular Volume 94, Mean Corpuscular Hemoglobin 31, Mean Corpuscular Hemoglobin Concent 33, Red Cell Distribution Width 15.8H, Platelet Count 426H, Mean Platelet Volume 9.1, Neutrophils (%) (Auto) 75, Lymphocytes (%) (Auto) 12, Monocytes (%) (Auto) 12, Eosinophils (%) (Auto) 1, Basophils (%) (Auto) 0, Neutrophils # (Auto) 6.2, Lymphocytes # (Auto) 1.0, Monocytes # (Auto) 1.0, Eosinophils # (Auto) 0.1, Basophils # (Auto) 0.0, Sodium Level 134L, Potassium Level 4.6, Chloride Level 100, Carbon Dioxide Level 20L, Anion Gap 14, Blood Urea Nitrogen 20H, Creatinine 1.16, Estimat Glomerular Filtration Rate > 60, BUN /Creatinine Ratio 17, Glucose Level 152H, Calcium Level 9.2, Phosphorus Level 2.5, Magnesium Level 1.9 Assessment/Plan Assessment/Plan Assess & Plan/Chief Complaint ASSESSMENT: s/p lumbar lami/PSIF PLAN: discharge today to SNF OOB with max assist brace while OOB pain control f/u in two weeks with dr hou Clinical Quality Measures DVT/VTE Risk/Contraindication: Risk Factor Score Per Nursin RFS Level Per Nursing on Admit: 4+=Very High BERNICE HOU DO Apr 27, 2018 06:12
[2018-04-27] MEDS ORDERED: HYDR-3812 PO ×2 (06:16→13:16)
--- NOTE | 2018-04-27 06:31 | Pulmonary Progress Note ---
Subjective Time Seen by Provider: 07:13 Subjective/Events-last exam No complications noted. Exam Exam Vital Signs Date Time Temp Pulse Resp B/P (MAP) Pulse Ox O2 Delivery O2 Flow Rate FiO2 04/26/18 20:30 98.1 110 16 110/71 (84) 91 Nasal Cannula 3.00 04/26/18 20:00 93 Room Air 04/26/18 18:42 91 Nasal Cannula 5.00 04/26/18 15:29 98.7 108 18 110/75 (87) 93 Room Air 04/26/18 12:00 98.7 110 18 110/75 (87) 93 Room Air 04/26/18 09:00 93 Room Air 04/26/18 08:00 99.0 105 16 100/64 (76) 92 Nasal Cannula 3.00 04/26/18 06:44 97.9 107 20 122/78 (93) 96 Nasal Cannula 3.00 I & O 04/27/18 06:59 Intake Total 1250 ml Output Total 1350 ml Balance -100 ml General Appearance: No Apparent Distress HEENT: PERRL/EOMI, Pharynx Normal Neck: Supple Respiratory: Lungs Clear Cardiovascular: Regular Rate, Rhythm Peripheral Pulses: 2+ Dorsalis Pedis (R), 2+ Left Dors-Pedis (L) Gastrointestinal: normal bowel sounds, non tender, soft Extremity: Other (LLE: 3/5 hip flexor, quad, SILT, 5/5 domi dorsiflexion, wound CDI) Neurologic/Psychiatric: Alert, Oriented x3 Skin: Normal Color Lymphatic: No Adenopathy Results Lab Laboratory Tests 04/26/18 05:41 04/27/18 03:35 Assessment/Plan Assessment/Plan Lumbar spinal stenosis with radiculopathy s/p lumbar fusion, laminectomy and cage placement -Pain management ARA -monitor Cardiomyopathy -IVF heplocked -Continue lasix 20mg daily anemia post op s/p transfusion - s/p 1 unit PRBC -monitor Leukocytosis - probably secondary to surgery -monitor Atelectasis -IS, increase activity I am going to sign off please call with any questions. 232 LILIYA RENEE DO Apr 27, 2018 06:30
[2018-04-27] MEDS: inSUlin ASPART (NovoLOG) 1 UNIT/0.01 ML (CHARGE PER UNIT) SC SCH ×2 (07:07→11:37)
[2018-04-27] MEDS: MULTIVIT W/MINERALS TAB (THERAGRAN M) PO SCH (07:07)
[2018-04-27] MEDS: oxyCODONE/APAP 5/325MG (PERCOCET 5) TABLET PO PRN (07:07)
[2018-04-27] MEDS: PANTOPRAZOLE 40 MG (PROTONIX) TAB PO SCH (07:07)
[2018-04-27 08:00] VITALS: BP 124/77
[2018-04-27] MEDS: PRAMIPEXOLE 0.5 MG TAB (MIRAPEX) PO SCH ×2 (08:26→12:26)
[2018-04-27] MEDS: MAGNESIUM OXIDE (MAG-OX)400 MG TAB PO SCH (08:26)
[2018-04-27] MEDS: FINASTERIDE (PROSCAR) 5 MG TAB PO SCH (08:26)
[2018-04-27] MEDS: DOCUSATE SODIUM 100 MG (COLACE) CAP PO SCH (08:26)
[2018-04-27] MEDS: FUROSEMIDE 20 MG (LASIX) TAB PO SCH (08:26)
[2018-04-27] MEDS: risperiDONE 0.25 MG (RisperDAL) TAB PO SCH (08:26)
--- NOTE | 2018-04-27 09:57 | Physical Therapy Daily Note ---
PT Daily Note-Current Subjective Patient agrees to PT. He states, "I don't want to hurt so I don't move." This PT educated patient on importance of actively moving his body vs the possible negative side effects of not. Patient voices understanding. Pain Numeric Pain Scale: 10-Worst Possible Pain Location: Lower Location Body Site: Back Pain Description: Acute Mental Status Patient Orientation: Normal For Age Attachments: Oxygen, Bonilla Catheter Transfers Functional [place] Measure 0=Not Assessed/NA 4=Minimal Assistance 1=Total Assistance 5=Supervision or Setup 2=Maximal Assistance 6=Modified [place] 3=Moderate Assistance 7=Complete IndependenceIRFPAI Quality Coding Scale 6 Independent with activity with or without an assistive device 5 Patient requires set up or clean up by helper. Patient completes activity by themselves 4 Supervision or touching assist (CGA). [place] provide cues , steadying assist 3 The helper provides less than half the effort to complete the activity 2 The helper provides more than half the effort to complete the activity 1 Dependent. The helper does all the effort to complete an activity 7 Patient refused to complete or attempt activity 9 The patient did not perform the activity before the current illness or injury 88 Not attempted due to Medical conditions or safety concerns Transfers (B, C, W/C) (FIM): 1 Scootin Supine to/from Sit: 2 Sit to/from Stand: 1 Bed to/from Chair: 1 dependent assist with blocking bilateral knees for transfer/sitting exercises and scooting technique taught to patient during this time Weight Bearing Right Lower Extremity: Right Weight Bearing/Tolerated Left Lower Extremity: Left Weight Bearing/Tolerated Exercises Supine Ex: Ankle pumps, Quad Set, Heel Slides Supine Reps: 15 (AAROM left Le) Seated Therapy Exercises: Ankle pumps, Long arc quads, Hip flexion Seated Reps: 15 (AAROM left LE) Assessment Patient did demonstrate slight improvement with mobility on this date. He continues to require much encouragement to actively perform movement and to "work through his pain" PT Short Term Goals Short Term Goals Time Frame: May 03, 2018 Gait (FIM): 1 Distance (FIM): 1=up to 49 ft Gait Distance Comment: 45' Gait Level of Assist: 4 Gait Assistive Device: FWW PT Agricultural Equipment Operator Goals Agricultural Equipment Operator Goals PT Custodial Goals Time Frame: May 11, 2018 Transfers (B,C,W/C) (FIM): 5 Gait (FIM): 5 Gait distance (FIM): 3=150 ft Distance: 150' Gait Level of Assist: 5 Gait Assistive Device: FWW PT Plan Treatment/Plan Treatment Plan: Continue Plan of Care Treatment Plan: Bed Mobility, Concurrent Therapy, Education, Functional Activity Brain, Functional Strength, Gait, Safety, Therapeutic Exercise, Transfers Treatment Duration: May 11, 2018 Frequency: 11 times per week Estimated Hrs Per Day: 1 hour per day Patient and/or Family Agrees t: Yes Discharge Recommendations Therapy D/C Recommendations: Prison Placement, Detention (TCU/NH) Time/GCodes Time In: 840 Time Out: 903 Total Billed Treatment Time: 23 Total Billed Treatment 1 visit EX 10 min FA 13 min JIMI LOPEZ PT Apr 27, 2018 09:57
--- NOTE | 2018-04-27 10:50 | Diagnostic Imaging Report ---
INDICATION: Dyspnea. COMPARISON: 04/26/2018 FINDINGS: There is left basilar infiltrate with a left pleural effusion. There is cardiomegaly. Mild venous congestion. There is no pneumothorax. The mediastinum is unremarkable. There has been a previous median sternotomy and coronary bypass graft. IMPRESSION: Left basilar infiltrate and left pleural effusion. Cardiomegaly and mild venous congestion. Dictated by: Dictated on workstation # [id number]
--- NOTE | 2018-04-27 11:16 | Occupational Ther Daily Note ---
OT Current Status-Daily Note Subjective Pt alert, sitting in recliner. Visitor present in room. Pt c/o being tired, MULTANI encouraged therapy. Pt agreed to do 'a little'. Mental Status/Objective Patient Orientation: Person, Place, Time, Situation Functional [place] Measure 0=Not Assessed/NA 4=Minimal Assistance 1=Total Assistance 5=Supervision or Setup 2=Maximal Assistance 6=Modified [place] 3=Moderate Assistance 7=Complete [place] Attachments: IV, Oxygen Other Treatment UE theraband handout and medium resistance theraband given to pt for use in room. Education on how to complete each exercise then pt able to demonstrate understanding. Pt would close eyes between each set. SOA throughout therapy session. 4 UE exercises, 1 set 5 reps. Pt was asking about AE to lift L LE since he could not move it on its own. MULTANI to bring resource catalog to pt, highlighting leg marzipan maker as a possibility. After therapy, pt sitting in recliner with eyes closed. Call light/phone in reach. Visitor and nrsg in room. Education OT Patient Education: Exercise program, Instructions to caregiver Teaching Recipient: Patient, Family Teaching Methods: Demonstration, Handout, Discussion Response to Teaching: Verbalize Understanding, Return Demonstration, Reinforcement Needed OT Short Term Goals Short Term Goals 1=Demonstrate adherence to instructed precautions during ADL tasks. 2=Patient will verbalize/demonstrate understanding of assistive devices/ modifications for ADL. 3=Patient will improve strength/tolerance for activity to enable patient to perform ADL's. OT Mcfp Goals Mcfp Goals Time Frame: May 04, 2018 Eating (FIM): 6 Grooming(FIM): 5 Bathing(FIM): 3 Upper Body Dressing(FIM): 5 Lower Body Dressing(FIM): 3 Toileting(FIM): 3 Toilet/Commode Transfer(FIM): 3 Additional Goals: 1-Demonstrate ADL Tasks, 2-Verbalize Understanding, 3- ImproveStrength/Brain 1=Demonstrate adherence to instructed precautions during ADL tasks. 2=Patient will verbalize/demonstrate understanding of assistive devices/ modifications for ADL. 3=Patient will improve strength/tolerance for activity to enable patient to perform ADL's. OT Education/Plan Problem List/Assessment Pt would benefit from skilled OT to increase his independence in basic self care Discharge Recommendations Plan/Recommendations: Continue POC Treatment Plan/Plan of Care Patient would benefit from OT for education, treatment and training to promote independence in ADL's, mobility, safety and/or upper extremity function for ADL' s. Plan of Care: ADL Retraining, Functional Mobility, UE Funct Exercise/Act, UE Neuromus Re-Ed/Coord Treatment Duration: May 04, 2018 Frequency: 5 times per week Estimated Hrs Per Day: .5 hour per day Agreement: Yes Rehab Potential: Fair Time/GCodes Start Time: 10:50 Stop Time: 11:07 Total Time Billed (hr/min): 17 Billed Treatment Time 1 visit-EX 1 (17 min) KARLI MICHELLE Apr 27, 2018 11:16
--- NOTE | 2018-04-27 11:56 | Physical Therapy Daily Note ---
PT Daily Note-Current Subjective Patient agrees to PT. Pain Numeric Pain Scale: 10-Worst Possible Pain Location: Left Location Body Site: Back (leg) Pain Description: Stabbing, Acute Mental Status Patient Orientation: Normal For Age Attachments: Oxygen, Bonilla Catheter Transfers Functional [place] Measure 0=Not Assessed/NA 4=Minimal Assistance 1=Total Assistance 5=Supervision or Setup 2=Maximal Assistance 6=Modified [place] 3=Moderate Assistance 7=Complete IndependenceIRFPAI Quality Coding Scale 6 Independent with activity with or without an assistive device 5 Patient requires set up or clean up by helper. Patient completes activity by themselves 4 Supervision or touching assist (CGA). [place] provide cues , steadying assist 3 The helper provides less than half the effort to complete the activity 2 The helper provides more than half the effort to complete the activity 1 Dependent. The helper does all the effort to complete an activity 7 Patient refused to complete or attempt activity 9 The patient did not perform the activity before the current illness or injury 88 Not attempted due to Medical conditions or safety concerns Transfers (B, C, W/C) (FIM): 1 Scootin Rollin Supine to/from Sit: 1 Sit to/from Stand: 1 Bed to/from Chair: 1 Patient is improving slow with assisting, however continues to require dependent assist with all mobility Weight Bearing Right Lower Extremity: Right Weight Bearing/Tolerated Left Lower Extremity: Left Weight Bearing/Tolerated Assessment Patient is repositioned in bed with needs met. He is more cooperative on this date and is beginning to actively move his body. PT to increase activity as tolerated by patient. PT Short Term Goals Short Term Goals Time Frame: May 03, 2018 Gait (FIM): 1 Distance (FIM): 1=up to 49 ft Gait Distance Comment: 45' Gait Level of Assist: 4 Gait Assistive Device: FWW PT Attorney General Goals Attorney General Goals PT Senior Care Goals Time Frame: May 11, 2018 Transfers (B,C,W/C) (FIM): 5 Gait (FIM): 5 Gait distance (FIM): 3=150 ft Distance: 150' Gait Level of Assist: 5 Gait Assistive Device: FWW PT Plan Treatment/Plan Treatment Plan: Continue Plan of Care Treatment Plan: Bed Mobility, Concurrent Therapy, Education, Functional Activity Brain, Functional Strength, Gait, Safety, Therapeutic Exercise, Transfers Treatment Duration: May 11, 2018 Frequency: 11 times per week Estimated Hrs Per Day: 1 hour per day Patient and/or Family Agrees t: Yes Time/GCodes Time In: 1130 Time Out: 1146 Total Billed Treatment Time: 16 Total Billed Treatment 1 visit FA 16 min JIMI LOPEZ PT Apr 27, 2018 11:56
[2018-04-27 12:00] VITALS: BP 127/72
[2018-04-27] MEDS ORDERED: FUROSEMIDE 40 MG/4 ML INJ (LASIX) IVP NR (13:00)
[2018-04-27] MEDS ORDERED: SULF1TAB35 PO (13:03)
--- NOTE | 2018-04-27 13:07 | Discharge Inst-Skilled Nursing ---
Discharge Inst-Skilled NF Patient Instructions Patient Problems: Lumbar Spinal Stenosis--S/P laminectomy Hypertension DMII Chronic Renal Insufficiency Restlessness of Shoulders Goal: Increase strength/pain control Return to home Consult/Follow Up/Orders Follow Up Appt.: Fwup 2 weeks with ia Skilled NF Admit to: [facility] Certification ([facility]) I certify that SNF services are required to be given on an inpatient basis because of the above named patient's need for long term care on a continuing basis for the conditions(s) for which he/she was receiving inpatient hospital services prior to his/her transfer to the SNF. Fpc Facility Order: [place]-Evaluate & Treat, Physical Therapy-Evaluate & Treat Discharge Diet: ADA Diet, Cardiac Diet Daily Activity as Tolerated: Yes New & Resume Previous Orders Other Instructions CBC, Chem 7 on 04/30/18 Saida Guevara Apr 27, 2018 13:03 SAIDA GUEVARA DO Apr 27, 2018 13:07
[2018-04-27] MEDS ORDERED: FURO20TA4 PO (13:08)
--- NOTE | 2018-04-27 13:19 | Discharge Inst-Skilled Nursing ---
Discharge Inst-Skilled NF Consult/Follow Up/Orders Skilled NF Admit to: [facility] Certification (SNF) I certify that SNF services are required to be given on an inpatient basis because of the above named patient's need for [place] [facility] care on a continuing basis for the conditions(s) for which he/she was receiving inpatient hospital services prior to his/her transfer to the SNF. Residential Facility Order: Territory Service [facility]-Evaluate & Treat, Physical Therapy-Evaluate & Treat Discharge Diet: ADA Diet, Cardiac Diet Daily Activity as Tolerated: Yes New & Resume Previous Orders New & Resume Previous Orders Continue continuous oxygen at 4liters Incentive spirometry every 2hrs while awake SVN with duoneb TID and q2hrs prn Saida Guevara Apr 27, 2018 13:17 SAIDA GUEVARA DO Apr 27, 2018 13:19
--- NOTE | 2018-04-27 13:25 | Progress Note (SOAP) ---
Subjective Date Seen by Provider: Apr 27, 2018 Time Seen by Provider: 13:22 Subjective/Events-last exam Fwup lumbar spinal stenosis--S/P surgery, post-op anemia, DMII, renal insufficiency, shoulder restlessness, HTN. Has been accepted to [facility] for long term. Little upper airway congestion this morning but resting comfortably now. Objective Exam Vital Signs Date Time Temp Pulse Resp B/P (MAP) Pulse Ox O2 Delivery O2 Flow Rate FiO2 04/27/18 12:00 98.2 96 18 127/72 (90) 96 Nasal Cannula 3.50 04/27/18 08:00 96 Nasal Cannula 5.00 04/27/18 08:00 97.7 105 18 124/77 (93) 96 Nasal Cannula 5.00 04/27/18 07:36 96 Nasal Cannula 5.00 04/27/18 04:17 98.0 102 17 112/70 (84) 94 Nasal Cannula 3.00 04/26/18 20:30 98.1 110 16 110/71 (84) 91 Nasal Cannula 3.00 04/26/18 20:00 93 Room Air 04/26/18 18:42 91 Nasal Cannula 5.00 04/26/18 15:29 98.7 108 18 110/75 (87) 93 Room Air I & O 04/27/18 07:00 Intake Total 1550 ml Output Total 1750 ml Balance -200 ml Capillary Refill : General Appearance: No Apparent Distress Neck: Supple Respiratory: Rhonci (upper airway) Cardiovascular: Regular Rate, Rhythm, Systolic Murmur Gastrointestinal: normal bowel sounds, non tender, soft Extremity: Non Tender, No Calf Tenderness, No Pedal Edema Neurologic/Psychiatric: Motor Weakness Results Lab Laboratory Tests 04/26/18 15:30: Glucometer 157H 04/26/18 20:29: Glucometer 186H 04/27/18 03:35: White Blood Count 8.3, Red Blood Count 2.80L, Hemoglobin 8.7L, Hematocrit 26L, Mean Corpuscular Volume 94, Mean Corpuscular Hemoglobin 31, Mean Corpuscular Hemoglobin Concent 33, Red Cell Distribution Width 15.8H, Platelet Count 426H, Mean Platelet Volume 9.1, Neutrophils (%) (Auto) 75, Lymphocytes (%) (Auto) 12, Monocytes (%) (Auto) 12, Eosinophils (%) (Auto) 1, Basophils (%) (Auto) 0, Neutrophils # (Auto) 6.2, Lymphocytes # (Auto) 1.0, Monocytes # (Auto) 1.0, Eosinophils # (Auto) 0.1, Basophils # (Auto) 0.0, Sodium Level 134L, Potassium Level 4.6, Chloride Level 100, Carbon Dioxide Level 20L, Anion Gap 14, Blood Urea Nitrogen 20H, Creatinine 1.16, Estimat Glomerular Filtration Rate > 60, BUN /Creatinine Ratio 17, Glucose Level 152H, Calcium Level 9.2, Phosphorus Level 2.5, Magnesium Level 1.9 04/27/18 07:04: Glucometer 258H 04/27/18 11:07: Glucometer 295H Assessment/Plan Assessment/Plan Assess & Plan/Chief Complaint 1. Lumbar Spinal Stenosis--S/P laminectomy--pain control and continue PT/OT--to SNF today 2. Hypertension with hypotension post-op--BP currently stable 3. Acute on Chronic Anemia--Stable, recheck H/H on Monday 4. Diabetes mellitus--on Accuchecks with SSI 5. Restlessness of Shoulders--mirapex helping 6. COPD--continue oxygen and SVNs, increase lasix dose on DC and repeat Chem 7 on Monday Clinical Quality Measures DVT/VTE Risk/Contraindication: Risk Factor Score Per Nursin RFS Level Per Nursing on Admit: 4+=Very High MAGED COLBERT DO Apr 27, 2018 1:25 pm
[2018-04-27 13:39] LABS: BILIRUBIN,URINE NEGATIVE (NEGATIVE); CLARITY,URINE CLEAR; COLOR,URINE YELLOW; GLUCOSE, URINE (UA) NEGATIVE (NEGATIVE); KETONES,URINE NEGATIVE (NEGATIVE); LEUKOCYTE ESTERASE ,URINE 1+ (NEGATIVE); NITRITE,URINE NEGATIVE (NEGATIVE); PH,URINE 7 (5-9); PROTEIN,URINE NEGATIVE (NEGATIVE); UROBILINOGEN,URINE NORMAL (NORMAL)
[2018-04-27 13:49] LABS: BACTERIA,URINE NEGATIVE /HPF; WBC,URINE 0-2 /HPF
== END 2018-04-27 15:40 | DRG 454 ==
LOC: 4TH 10:39 → SURG 10:40 → EDSTATUS 11:45 → 4TH 18:25 → ICU 04-24 03:16 → 4TH 04-25 11:00
PROVIDERS: ADMIT Orthopaedic Surgery; ATTEND Orthopaedic Surgery
PROC: 0SG1071 Fusion of 2 or more Lumbar Vertebral Joints with Autologous Tissue Substitute, Posterior Approach, Posterior Column, Open Approach (ICD-10-PCS; 2018-04-23)
PROC: 0SG00A0 Fusion of Lumbar Vertebral Joint with Interbody Fusion Device, Anterior Approach, Anterior Column, Open Approach (ICD-10-PCS; 2018-04-23)
PROC: 0SG00AJ Fusion of Lumbar Vertebral Joint with Interbody Fusion Device, Posterior Approach, Anterior Column, Open Approach (ICD-10-PCS; principal; 2018-04-23 12:07)
DX: M48.062 Spinal stenosis, lumbar region with neurogenic claudication (principal); M54.16 Radiculopathy, lumbar region; D62 Acute posthemorrhagic anemia; I13.0 Hypertensive heart and chronic kidney disease with heart failure and stage 1 through stage 4 chronic kidney disease, or unspecified chronic kidney disease; I50.9 Heart failure, unspecified; N18.9 Chronic kidney disease, unspecified; J98.11 Atelectasis; E87.1 Hypo-osmolality and hyponatremia; N17.9 Acute kidney failure, unspecified; I42.9 Cardiomyopathy, unspecified; J44.9 Chronic obstructive pulmonary disease, unspecified; I25.10 Atherosclerotic heart disease of native coronary artery without angina pectoris; E11.42 Type 2 diabetes mellitus with diabetic polyneuropathy; E66.9 Obesity, unspecified; H40.9 Unspecified glaucoma; E78.00 Pure hypercholesterolemia, unspecified; R00.0 Tachycardia, unspecified; E83.42 Hypomagnesemia; I95.9 Hypotension, unspecified; R41.0 Disorientation, unspecified; D72.829 Elevated white blood cell count, unspecified; R34 Anuria and oliguria; K59.09 Other constipation; Z68.31 Body mass index [BMI] 31.0-31.9, adult; Z79.84 Long term (current) use of oral hypoglycemic drugs; Z95.1 Presence of aortocoronary bypass graft; Z87.891 Personal history of nicotine dependence; Z91.19 Patient's noncompliance with other medical treatment and regimen; Z86.79 Personal history of other diseases of the circulatory system
CPT/HCPCS: 36415; 71045; 72100; 80048; 80053; 81000; 82962; 83735; 84100; 85007; 85014; 85018; 85025; 85027; 86850; 86900; 86901; 86920; 94664; 94760

== ENCOUNTER 2018-05-18 12:52 | Emergency (ER) | payer MEDICARE, OTHER ==
[~2018-05-18] VITALS: Ht 185.4 cm; Wt 104.3 kg
[~2018-05-18 12:52] MED LIST changes: +FURO20TA4 PO; -IPRA3AMP INH; +IPRA3AMP31 IH; +IPRA3AMP31 INH; +MAGN400T29 PO; +POLY17PO6 PO; +SENN8.6T68 PO; +SULF1TAB35 PO
[2018-05-18] MEDS ORDERED: TETRACAINE 0.5% OPHTH SOLN 4 ML BTL (SINGLE DOSE ONLY) OP ONE (14:00)
--- NOTE | 2018-05-18 14:24 | ED EENT ---
History of Present Illness General Chief Complaint: Eye Problems Stated Complaint: DIZZINESS,CAN'T SEE Nursing Triage Note: PT PRESENTS TO ED FROM [facility] WITH COMPLAINTS OF L EYE INTERMITTENT BLURRY VISION STARTING YESTERDAY. STAFF ALSO REPORTS PT HAD DIFFICULTY SWALLOWING YESTERDAY. PT DENIES ANY DIFFICULTY SWALLOWING TODAY. (KIM HAWKINS) History of Present Illness Date Seen by Provider: May 18, 2018 Time Seen by Provider: 01:45 Initial Comments Patient is a 77-year-old male who presents to the emergency room with intermittent blurred vision that started this morning when he woke up. He reports he has a history of glaucoma and left eye surgeries. He denies any pain whatsoever with this. Timing/Duration: intermittent, yesterday Location: eye (R), eye (L) (KIM HAWKINS) Allergies and Home Medications Allergies Coded Allergies: No Known Drug Allergies (Unverified , 04/16/18) Home Medications Alfuzosin HCl 10 Mg Tab.er.24h, 10 MG PO DAILY, (Reported) Aspirin 325 Mg Tablet, 325 MG PO DAILY, (Reported) Baclofen 10 Mg Tablet, 20 MG PO HS, (Reported) TAKE 2 (10 MG) TABLETS AT BEDTIME Finasteride 5 Mg Tablet, 5 MG PO DAILY, (Reported) Furosemide 20 Mg Tablet, 40 MG PO DAILY Prescribed by: MAGED COLBERT on 04/27/18 1308 Hydrocodone/Acetaminophen 1 Each Tablet, 1 EACH PO Q4H Prescribed by: MAGED COLBERT on 04/27/18 1316 Ipratropium/Albuterol Sulfate 3 Ml Ampul.neb, 3 ML IH Q8H PRN for SHORTNESS OF BREATH, (Reported) Latanoprost 2.5 Ml Drops, 1 DROP OU HS, (Reported) Magnesium Oxide 400 Mg Tablet, 400 MG PO BID, (Reported) Metformin HCl 1,000 Mg Tablet, 1,000 MG PO BID, (Reported) Polyethylene Glycol 3350 17 Gm Powd.pack, 17 GM PO BID PRN for CONSTIPATION-2ND LINE, (Reported) Pramipexole Di-HCl 1.5 Mg Tablet, 1.5 MG PO TID PRN for RESTLESSNESS, (Reported) Sennosides 8.6 Mg Tablet, 8.6 MG PO TID PRN for CONSTIPATION-5TH LINE, (Reported ) Sulfamethoxazole/Trimethoprim 1 Each Tablet, 1 EACH PO BID Prescribed by: MAGED COLBERT on 04/27/18 1303 Patient Home Medication List Home Medication List Reviewed: Yes (KIM HAWKINS) Review of Systems Constitutional: see HPI; No chills, No diaphoresis Eyes: See HPI, Blurred Vision; Denies Pain, Denies Photophobia Ears: See HPI; Denies Dizziness, Denies Pain Nose: see HPI; denies clots, denies congestion Mouth: see HPI; denies clots, denies loose teeth Throat: see HPI; denies pain, denies swelling, denies discharge Respiratory: see HPI; No cough, No dyspnea on exertion Cardiovascular: see HPI; No chest pain Gastrointestinal: see HPI; No abdominal pain, No constipation Musculoskeletal: see HPI; No back pain, No gout Skin: see HPI; No change in color, No change in hair/nails Neurological: See HPI; Denies Anxiety, Denies Depressed Hematologic/Lymphatic: See HPI; Denies Anemia Immunological/Allergic: see HPI; denies food allergy (KIM HAWKINS) All Other Systems Reviewed Negative Unless Noted: Yes (KIM HAWKINS) Past Ggcizat-Jjzdys-Zkcarf Hx Past Med/Social Hx: Reviewed Nursing Past Med/Soc Hx (KIM HAWKINS) Patient Social History Alcohol Use: Denies Use Recreational Drug Use: No Smoking Status: Former Smoker Type Used: Cigarettes Former Smoker, Quit: Apr 16, 1985 2nd Hand Smoke Exposure: No Recent Foreign Travel: No Contact w/Someone Who Travel: No Recent Infectious Disease Expo: No Recent Hopitalizations: No Physical Abuse: No Sexual Abuse: No Mistreated: No Fear: No (KIM HAWKINS) Immunizations Up To Date Tetanus Booster (TDap): More than 5yrs Date of Pneumonia Vaccine: Aug 21, 2017 (KIM HAWKINS) Seasonal Allergies Seasonal Allergies: No (KIM HAWKINS) Past Medical History Surgeries: Yes (4 VESSEL CABG; AAA REPAIR WITH STENT) Cardiac, CABG, Vascular Surgery Respiratory: Yes ( STATES PT WAS PRESCRIBED O2 FOR HOME USE, BUT NON- COMPLIANT) Currently Using CPAP: No Cardiac: Yes (AAA STENT,CHF) Aneurysm, Coronary Artery Disease, High Cholesterol, Hypertension Neurological: Yes (TRIGEMINAL NEURALGIA) Reproductive Disorders: No Genitourinary: Yes (FREQUENCY , CHRONIC KIDNEY DZ, ) Gastrointestinal: Yes Chronic Constipation Musculoskeletal: Yes (STENOSIS) Chronic Back Pain, Spasms Endocrine: No Diabetes, Non-Insulin dep HEENT: Yes (GLASSES) Cataract, Glaucoma Loss of Vision: Bilateral Hearing Impairment: Hard of Hearing Cancer: No Psychosocial: No Nursing Suicide Risk Score: 0 Integumentary: No Blood Disorders: No Adverse Reaction/Blood Tranf: No (KIM HAWKINS) Family Medical History Reviewed Nursing Family Hx (KIM HAWKINS) Patient reports no known family medical history. Visual Acuity : Eye Location: Bilaterally Vision Acuity Degree: 20/25 (with glasses) (KIM HAWKINS) Physical Exam Vital Signs Vital Signs - First Documented 05/18/18 13:25 Temp 97.6 Pulse 86 Resp 20 B/P (MAP) 109/64 (79) Pulse Ox 100 O2 Delivery Nasal Cannula O2 Flow Rate 3.00 (SERENA TILLMAN MD) Height, Weight, BMI Height: 6'1.00" Weight: 230lbs. 5.0oz. 104.553119qd; 30.0 BMI Method:Stated General Appearance: WD/WN, no apparent distress Eyes: bilateral eye EOMI, bilateral eye other (his left eye pupil is 1mm but reactive to light. His right eye is approximately 2-3 mm and reactive to light. He denies any pain) Ears: bilateral ear auricle normal Nose: normal inspection Mouth/Throat: normal mouth inspection, pharynx normal Neck: non-tender, full range of motion, supple, normal inspection Cardiovascular: regular rate, rhythm, no edema, no gallop, no JVD, no murmur Respiratory: chest non-tender, lungs clear, normal breath sounds, no respiratory distress, no accessory muscle use Gastrointestinal: normal bowel sounds, non tender, soft, no organomegaly, no pulsatile mass Neurologic/Psychiatric: alert, normal mood/affect, oriented x 3, other (denies any headaches) Skin: normal color, warm/dry (KIM HAWKINS) Progress/Results/Core Measures Results/Orders Lab Results Laboratory Tests Test 05/18/18 17:39 Range/Units Erythrocyte Sedimentation Rate > 140 H 0-30 MM/HR (SERENA TILLMAN MD) Medications Given in ED Current Medications Medications Dose Ordered Sig/Juan Route Start Time Stop Time Status Last Admin Dose Admin Tetracaine HCl 1 OR 2 DROPS INTO AFFEC... ONCE ONCE OP 05/18/18 14:00 05/18/18 14:01 DC 05/18/18 14:00 1 ML (SERENA TILLMAN MD) Vital Signs/I&O 05/18/18 05/18/18 13:25 14:30 Temp 97.6 Pulse 86 68 Resp 20 20 B/P (MAP) 109/64 (79) 109/74 Pulse Ox 100 99 O2 Delivery Nasal Cannula Nasal Cannula O2 Flow Rate 3.00 2.00 (SERENA TILLMAN MD) Blood Pressure Mean: 79 Progress Progress Note : Time: 14:15 Progress Note The patient's intraocular pressure was tested with a Chetan-Pen twice the left eye had readings of 50 mmHg and 52 mmHg, the right eye had 35 mmHg and 37 mmHg on the readings. I called Dr. Rm pichardo immediately after the results of the tonometry and I spoke to the head counselor and she said since the patient over immediately and they would work him into their schedule. The patient was informed of this and discharge paperwork was given with strict instructions to drive immediately to Dr. Mora pichardo. 1700- Dr. Ozuna called at this time and has concerns for giant cell arteritis and requested a sedimentation rate be ordered and that she would be sending the patient back out to the emergency room I put an order for a sedimentation rate discussed the case with Dr. Tillman and he is going to follow-up with the results of the sedimentation rate. (KIM HAWKINS) Departure Communication (Admissions) 2024: The patient was seen by Dr. Ozuna, continuous crusher operator with the [employer] [facility]. She was concerned about the possibility of temporal arteritis and asked that he have a sedimentation rate and that to call that to her. He returned here just before 1800 hours and had this performed. The lab reports this to be 140/20. This was relayed to Dr. ozuna and she asked that I start him on steroids. Accordingly I called [facility] and spoke to the nurse in house. The patient is to have Solu-Medrol IM 62.5 mg tonight, and again on Monday and Monday morning. They are then to speak to Dr. COLBERT/ on Monday for further instructions. (SERENA TILLMAN MD) Impression Primary Impression: Acute angle-closure glaucoma of both eyes Disposition: 01 HOME, SELF-CARE Condition: Stable/Unchanged Departure-Patient Inst. Decision time for Depature: 14:21 (KIM HAWKINS) Referrals: MAIKEL HEALY OD, JACQUELINE S DO (PCP/Family) Primary Care Physician Patient Instructions: Angle-Closure Glaucoma Add. Discharge Instructions: Go directly Dr. Healy office after leaving the hospital. Return back to the emergency room with any concerns as needed. All discharge instructions reviewed with patient and/or family. Voiced understanding. KIM HAWKINS May 18, 2018 14:24 SERENA TILLAMN MD May 18, 2018 20:29
[2018-05-18 14:30] VITALS: BP 109/74
--- OUTSIDE RECORDS SUMMARY | 2018-05-20 05:03 | XMS REPORT | Continuity of Care Document ---
Author Author [facility] Organization [facility] Address Unknown Phone Unavailable Allergies Active Description Code Type Severity Reaction Onset Reported/Identified Relationship to Patient Clinical Status Yes No Known Drug Allergies [id number] N/A N/A Yes No Known Drug Allergies [id number] Drug Allergy Unknown N/A 04/16/2018 Medications There is no data. Problems Date [...] 04/08/2016 CALOS BALDERRAMA MD Ot Z79.899 OTHER SENIOR CARE (CURRENT) DRUG THERAPY 04/21/2016 CALOS BALDERRAMA MD Ot M47.816 SPONDYLOSIS W/O MYELOPATHY OR RADICULOPA 04/21/2016 CALOS BALDERRAMA MD, Ot M51.16 INTERVERTEBRAL DISC DISORDERS W RADICULO 04/21/2016 CALOS BALDERRAMA MD Ot M53.3 SACROCOCCYGEAL DISORDERS, NOT ELSEWHERE 04/21/2016 CALOS BALDERRAMA MD Ot Z79.899 OTHER MANAGEMENT EXPERT (CURRENT) DRUG THERAPY 05/10/2016 Ot 724.2 LUMBAGO [...] BEATTY DO S Ot R07.81 PLEURODYNIA 05/16/2016 ORESAIDA BEATTY DO S Ot R07.81 PLEURODYNIA 05/18/2016 SAIDA GUEVARA DO S Ot R07.81 PLEURODYNIA 06/16/2016 DIANA GUEVARA DOLINE S Ot R07.81 PLEURODYNIA 01/06/2017 Ot 441.4 [...] RADICULOPA 02/21/2017 CALOS BALDERRAMA MD Ot Z79.84 MANAGEMENT EXPERT (CURRENT) USE OF ORAL HYPOGLYC 02/21/2017 CALOS BALDERRAMA MD Ot Z79.899 OTHER MANAGEMENT EXPERT (CURRENT) DRUG THERAPY 06/30/2017 DENNY NEIL MD Ot E11.9 TYPE 2 DIABETES MELLITUS WITHOUT COMPLIC 06/30/2017 DENNY NIEL MD Ot F41.9 ANXIETY DISORDER, UNSPECIFIED 06/30/2017 DENNY NEIL MD Ot G47.00 INSOMNIA, UNSPECIFIED 06/30/2017 DENNY NEIL MD Ot I25.10 ATHSCL HEART DISEASE OF [place] CORONARY 06/30/2017 DENNY NEIL MD Ot Z79.82 MANAGEMENT EXPERT (CURRENT) USE OF ASPIRIN 06/30/2017 DENNY NEIL MD Ot Z79.84 MANAGEMENT EXPERT (CURRENT) USE OF ORAL HYPOGLYC 06/30/2017 DENNY [...] MD Ot I25.10 ATHSCL HEART DISEASE OF [place] CORONARY 07/06/2017 DENNY NEIL MD Ot Z79.82 SENIOR CARE (CURRENT) USE OF ASPIRIN 07/06/2017 DENNY NEIL MD Ot Z79.84 SENIOR CARE (CURRENT) USE OF ORAL HYPOGLYC 07/06/2017 DENNY NEIL MD Ot Z87.891 PERSONAL HISTORY OF NICOTINE DEPENDENCE 07/06/2017 DENNY NEIL MD Ot Z95.1 PRESENCE OF AORTOCORONARY BYPASS GRAFT 07/17/2017 LAMONT JERONIMO APRN Ot E11.9 TYPE 2 DIABETES MELLITUS WITHOUT COMPLIC 07/17/2017 LAMONT JERONIMO LEADERSHIP 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 Ot E86.9 VOLUME DEPLETION, UNSPECIFIED 07/17/2017 LAMONT JERONIMO APRN Ot G25.81 RESTLESS LEGS SYNDROME 07/17/2017 LAMONT JERONIMO APRN Ot G47.00 INSOMNIA, UNSPECIFIED 07/17/2017 LAMONT JERONIMO APRN Ot I25.10 ATHSCL HEART DISEASE OF [place] CORONARY 07/17/2017 LAMONT JERONIMO APRN Ot M62.838 OTHER MUSCLE SPASM 07/17/2017 LAMONT JERONIMO APRN Ot Z79.82 SENIOR CARE (CURRENT) USE OF ASPIRIN 07/17/2017 LAMONT JERONIMO APRN Ot Z79.84 SENIOR CARE (CURRENT) USE OF ORAL HYPOGLYC 07/17/2017 LAMONT [...] E11.22 TYPE 2 DIABETES MELLITUS W DIABETIC COMMERCIAL ESTIMATOR 03/23/2018 FILEMON DIAZ SAIDA S Ot E11.9 TYPE 2 DIABETES MELLITUS WITHOUT COMPLIC 03/23/2018 GISSELLE GUEVARA DOQUELINE S Ot E83.42 HYPOMAGNESEMIA 03/23/2018 FILEMON DIAZ SAIDA S Ot E87.5 HYPERKALEMIA 03/23/2018 FILEMON DIAZ SAIDA S Ot 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 03/23/2018 GISSELLE GUEVARA DOQUELINE S Ot H91.90 UNSPECIFIED HEARING LOSS, UNSPECIFIED EA 03/23/2018 FILEMON DIAZ SAIDA S Ot I10 ESSENTIAL (PRIMARY) HYPERTENSION 03/23/2018 VIRAJNDAMAYA DIAZ SAIDA S Ot I12.9 HYPERTENSIVE CHRONIC KIDNEY DISEASE W ST 03/23/2018 FILEMON DIAZ SAIDA S Ot I25.10 ATHSCL HEART DISEASE OF [place] CORONARY 03/23/2018 FILEMON DIAZ SAIDA S Ot I49.3 VENTRICULAR PREMATURE DEPOLARIZATION 03/23/2018 GISSELLE GUEVARA DOQUELINE S Ot J81.0 ACUTE PULMONARY EDEMA 03/23/2018 GISSELLE GUEVARA DOQUELINE S Ot K59.03 DRUG INDUCED CONSTIPATION 03/23/2018 DIANA GUEVARA DOLINE S Ot M25.511 PAIN IN RIGHT SHOULDER 03/23/2018 SALLYAMAYA SAIDA DIAZ S Ot M25.512 PAIN IN LEFT SHOULDER 03/23/2018 DIANA GUEVARA DOLINE S Ot M62.830 MUSCLE SPASM OF BACK 03/23/2018 DIANA GUEVARA DOLINE S Ot N18.9 CHRONIC KIDNEY DISEASE, UNSPECIFIED 03/23/2018 DIANA GUEVARA DOLINE S Ot N28.9 DISORDER OF KIDNEY AND URETER, UNSPECIFI 03/23/2018 DIANA GUEVARA DOLINE S Ot R06.03 ACUTE RESPIRATORY DISTRESS 03/23/2018 SAIDA GUEVARA DO S Ot R09.02 HYPOXEMIA 03/23/2018 SAIDA GUEVARA DO S Ot R35.0 FREQUENCY OF MICTURITION 03/23/2018 SAIDA GUEVARA DO S Ot R45.1 RESTLESSNESS AND AGITATION 03/23/2018 SAIDA GUEVARA DO S Ot T40.2X5A ADVERSE EFFECT OF OTHER OPIOIDS, INITIAL 03/23/2018 DIANA GUEVARA DOLINE S Ot Z79.84 SENIOR CARE (CURRENT) USE OF ORAL HYPOGLYC 03/23/2018 SAIDA GUEVARA DO S Ot Z91.19 PATIENT'S NONCOMPLIANCE W [facility] 03/23/2018 SAIDA GUEVARA DO S Ot Z95.1 PRESENCE OF AORTOCORONARY BYPASS GRAFT 03/28/2018 SAIDA GUEVARA DO S Ot E11.22 TYPE 2 DIABETES MELLITUS W DIABETIC COMMERCIAL ESTIMATOR 03/28/2018 SAIDA GUEVARA DO S Ot E83.42 HYPOMAGNESEMIA 03/28/2018 DIANA GUEVARA DOLINE S Ot E87.5 HYPERKALEMIA 03/28/2018 SAIDA GUEVARA DO S Ot 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 03/28/2018 SAIDA GUEVARA DO S Ot I12.9 HYPERTENSIVE CHRONIC KIDNEY DISEASE W ST 03/28/2018 SAIDA GUEVARA DO S Ot I25.10 ATHSCL HEART DISEASE OF [place] CORONARY 03/28/2018 SAIDA GUEVARA DO S Ot I49.3 VENTRICULAR PREMATURE DEPOLARIZATION 03/28/2018 GISSELLE GUEVARA DOQUELINE S Ot J81.0 ACUTE PULMONARY EDEMA 03/28/2018 VIRAJROGERIO DIAZGISSELLESAIDA S Ot K59.03 DRUG INDUCED CONSTIPATION 03/28/2018 SALLYAMAYA DIAZ SAIDA S Ot M25.511 PAIN IN RIGHT SHOULDER 03/28/2018 VIRAJROGERIO DIAZDIANASAIDA S Ot M25.512 PAIN IN LEFT SHOULDER 03/28/2018 VIRAJROGERIO DIAZDIANASAIDA S Ot M62.830 MUSCLE SPASM OF BACK 03/28/2018 SALLYAMAYA DO SAIDA S Ot N18.9 CHRONIC KIDNEY DISEASE, UNSPECIFIED 03/28/2018 SALLYAMAYA DIAZ SAIDA S Ot N28.9 DISORDER OF KIDNEY AND URETER, UNSPECIFI 03/28/2018 SALLYAMAYA DIAZDIANASAIDA S Ot R06.03 ACUTE RESPIRATORY DISTRESS 03/28/2018 SALLYAMAYA DIAZDIANASAIDA S Ot R09.02 HYPOXEMIA 03/28/2018 SALLYAMAYA DIAZDIANASAIDA S Ot R35.0 FREQUENCY OF MICTURITION 03/28/2018 DIANA GUEVARA DOLINE S Ot R45.1 RESTLESSNESS AND AGITATION 03/28/2018 GISSELLE GUEVARA DOQUELINE S Ot T40.2X5A ADVERSE EFFECT OF OTHER OPIOIDS, INITIAL 03/28/2018 DIANA GUEVARA DOLINE S Ot Z79.84 MANAGEMENT EXPERT (CURRENT) USE OF ORAL HYPOGLYC 03/28/2018 DIANA GUEVARA DOLINE S Ot Z91.19 PATIENT'S NONCOMPLIANCE W [facility] 03/28/2018 FILEMON DIAZ SAIDA S Ot Z95.1 PRESENCE OF AORTOCORONARY BYPASS GRAFT 03/28/2018 DIANA GUEVARA DOLINE S Ot E11.22 TYPE 2 DIABETES MELLITUS W DIABETIC COMMERCIAL ESTIMATOR 03/28/2018 DIANA GUEVARA DOLINE S Ot E83.42 HYPOMAGNESEMIA 03/28/2018 DIANA GUEVARA DOLINE S Ot E87.5 HYPERKALEMIA 03/28/2018 DIANA GUEVARA DOLINE S Ot 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 03/28/2018 DIANA GUEVARA DOLINE S Ot I12.9 HYPERTENSIVE CHRONIC KIDNEY DISEASE W ST 03/28/2018 DIANA GUEVARA DOLINE S Ot I25.10 ATHSCL HEART DISEASE OF [place] CORONARY 03/28/2018 SAIDA GUEVARA DO S Ot [...] ADVERSE EFFECT OF OTHER OPIOIDS, INITIAL 03/28/2018 IDANA GUEVARA DOLINE S Ot Z79.84 MANAGEMENT EXPERT (CURRENT) USE OF ORAL HYPOGLYC 03/28/2018 DIANA GUEVARA DOLINE S Ot Z91.19 PATIENT'S NONCOMPLIANCE W [facility] 03/28/2018 DIANA GUEVARA DOLINE S Ot Z95.1 PRESENCE OF AORTOCORONARY BYPASS GRAFT 03/29/2018 MELISSA FREEMAN MD Ot E11.9 TYPE 2 DIABETES MELLITUS WITHOUT COMPLIC 03/29/2018 MELISSA FREEMAN MD Ot E78.00 PURE HYPERCHOLESTEROLEMIA, UNSPECIFIED 03/29/2018 MELISAS FREEMAN MD Ot I10 ESSENTIAL (PRIMARY) HYPERTENSION 03/29/2018 MELISSA FREEMAN MD Ot I25.10 ATHSCL HEART DISEASE OF [place] CORONARY 03/29/2018 MELISSA FREEMAN MD, Ot M54.16 RADICULOPATHY, LUMBAR REGION 03/29/2018 MELISSA FREEMAN MD, Ot M54.5 LOW BACK PAIN 03/29/2018 MELISSA FREEMAN MD, Ot Z79.82 SENIOR CARE (CURRENT) USE OF ASPIRIN 03/29/2018 MELISSA FREEMAN MD Ot Z79.84 MANAGEMENT EXPERT (CURRENT) USE OF ORAL HYPOGLYC 03/29/2018 MELISSA FREEMAN MD, Ot Z87.19 PERSONAL HISTORY OF OTHER DISEASES OF 03/29/2018 MELISSA FREEMAN MD, Ot Z87.891 PERSONAL HISTORY OF NICOTINE DEPENDENCE 03/29/2018 MELISSA FREEMAN MD Ot Z95.1 PRESENCE OF AORTOCORONARY BYPASS GRAFT 03/29/2018 MELISSA FREEMAN MD Ot Z95.5 PRESENCE OF CORONARY ANGIOPLASTY IMPLANT 04/02/2018 MELISSA FREEMAN MD Ot E11.9 TYPE 2 DIABETES MELLITUS WITHOUT COMPLIC 04/02/2018 MELISSA FREEMAN MD Ot E78.00 PURE HYPERCHOLESTEROLEMIA, UNSPECIFIED 04/02/2018 MELISSA FREEMAN MD Ot I10 ESSENTIAL (PRIMARY) HYPERTENSION 04/02/2018 MELISSA FREEMAN MD Ot I25.10 ATHSCL HEART DISEASE OF [place] CORONARY 04/02/2018 MELISSA FREEMAN MD Ot M54.16 RADICULOPATHY, LUMBAR REGION 04/02/2018 MELISSA FREEMAN MD, Ot M54.5 LOW BACK PAIN 04/02/2018 MELISSA FREEMAN MD, Ot Z79.82 MANAGEMENT EXPERT (CURRENT) USE OF ASPIRIN 04/02/2018 MELISSA FREEMAN MD Ot Z79.84 MANAGEMENT EXPERT (CURRENT) USE OF ORAL HYPOGLYC 04/02/2018 MELISSA FREEMAN MD Ot Z87.19 PERSONAL HISTORY OF OTHER DISEASES OF 04/02/2018 MELISSA FREEMAN MD, Ot Z87.891 PERSONAL HISTORY OF NICOTINE DEPENDENCE 04/02/2018 MELISSA FREEMAN MD Ot Z95.1 PRESENCE OF AORTOCORONARY BYPASS GRAFT 04/02/2018 MELISSA FREEMAN MD Ot Z95.5 PRESENCE OF CORONARY ANGIOPLASTY IMPLANT 04/16/2018 BERNICE CAMPOS DO Ot M48.061 SPINAL STENOSIS, LUMBAR REGION WITHOUT N 04/16/2018 BERNICE CAMPOS DO Ot Z01.818 ENCOUNTER FOR OTHER PREPROCEDURAL EXAMIN 04/16/2018 BERNICE CAMPOS DO Ot Z11.2 ENCOUNTER FOR SCREENING FOR OTHER BACTER 04/18/2018 BERNICE CAMPOS DO, Ot M48.061 SPINAL STENOSIS, LUMBAR REGION 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 04/18/2018 BERNICE CAMPOS DO Ot Z01.818 ENCOUNTER FOR OTHER PREPROCEDURAL EXAMIN 04/18/2018 BERNICE CAMPOS DO Ot Z11.2 ENCOUNTER FOR SCREENING FOR OTHER BACTER 04/22/2018 BERNICE CAMPOS DO, Ot M48.061 SPINAL STENOSIS, LUMBAR REGION WITHOUT N 04/22/2018 BERNICE CAMPOS DO Ot Z01.818 ENCOUNTER FOR OTHER PREPROCEDURAL EXAMIN 04/22/2018 BERNICE CAMPOS DO Ot Z11.2 ENCOUNTER FOR SCREENING FOR OTHER BACTER 04/25/2018 BERNICE CAMPOS DO Ot D62 ACUTE POSTHEMORRHAGIC ANEMIA 04/25/2018 BERNICE CAMPOS DO Ot D72.829 ELEVATED WHITE BLOOD CELL COUNT, UNSPECI 04/25/2018 BERNICE CAMPOS DO Ot E11.9 TYPE 2 DIABETES MELLITUS WITHOUT COMPLIC 04/25/2018 BERNICE CAMPOS DO Ot E66.9 OBESITY, UNSPECIFIED 04/25/2018 BERNICE CAMPOS DO Ot E78.00 PURE HYPERCHOLESTEROLEMIA, UNSPECIFIED 04/25/2018 BERNICE CAMPOS DO Ot E83.42 HYPOMAGNESEMIA 04/25/2018 BERNICE CAMPOS DO Ot E87.1 HYPO-OSMOLALITY AND HYPONATREMIA 04/25/2018 BERNICE CAMPOS DO Ot 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 04/25/2018 BERNICE CAMPOS DO Ot H40.9 UNSPECIFIED GLAUCOMA 04/25/2018 BERNICE CAMPOS DO Ot I13.0 HYP HRT CHR [place] DIS W HRT FAIL AND ST 04/25/2018 BERNICE CAMPOS DO Ot I25.10 ATHSCL HEART DISEASE OF [place] CORONARY 04/25/2018 BERNICE CAMPOS DO Ot I50.9 HEART FAILURE, UNSPECIFIED 04/25/2018 BERNICE CAMPOS DO Ot I95.9 HYPOTENSION, UNSPECIFIED 04/25/2018 BERNICE CAMPOS DO Ot J98.11 ATELECTASIS 04/25/2018 BERNICE CAMPOS DO Ot K59.09 OTHER CONSTIPATION 04/25/2018 BERNICE CAMPOS DO Ot M48.062 SPINAL STENOSIS, LUMBAR REGION WITH NEUR 04/25/2018 BERNICE CAMPOS DO Ot M54.16 RADICULOPATHY, LUMBAR REGION 04/25/2018 BERNICE CAMPOS DO Ot N18.9 CHRONIC KIDNEY DISEASE, UNSPECIFIED 04/25/2018 BERNICE CAMPOS DO Ot R00.0 TACHYCARDIA, UNSPECIFIED 04/25/2018 BERNICE CAMPOS DO Ot R34 ANURIA AND OLIGURIA 04/25/2018 BERNICE CAMPOS DO Ot R35.0 FREQUENCY OF MICTURITION 04/25/2018 BERNICE CAMPOS DO Ot R41.0 DISORIENTATION, UNSPECIFIED 04/25/2018 BERNICE CAMPOS DO Ot Z68.31 BODY MASS INDEX (BMI) 31.0-31.9, ADULT 04/25/2018 BERNICE CAMPOS DO Ot Z79.84 MANAGEMENT EXPERT (CURRENT) USE OF ORAL HYPOGLYC 04/25/2018 BERNICE CAMPOS DO Ot Z86.79 PERSONAL HISTORY OF OTHER DISEASES OF TH 04/25/2018 BERNICE CAMPOS DO Ot Z87.891 PERSONAL HISTORY OF NICOTINE DEPENDENCE 04/25/2018 BERNICE CAMPOS DO Ot Z91.19 PATIENT'S NONCOMPLIANCE W [facility] 04/25/2018 BERNICE CAMPOS DO Ot Z95.1 PRESENCE OF AORTOCORONARY BYPASS GRAFT 04/25/2018 BERNICE CAMPOS DO Ot Z95.828 PRESENCE OF OTHER VASCULAR IMPLANTS AND 04/25/2018 BERNICE CAPMOS DO Ot D62 ACUTE POSTHEMORRHAGIC ANEMIA 04/25/2018 BERNICE CAMPOS DO Ot D72.829 ELEVATED WHITE BLOOD CELL COUNT, UNSPECI 04/25/2018 BERNICE CAMPOS DO Ot E11.9 TYPE 2 DIABETES MELLITUS WITHOUT COMPLIC 04/25/2018 BERNICE CAMPOS DO Ot E66.9 OBESITY, UNSPECIFIED 04/25/2018 BERNICE CAMPOS DO Ot E78.00 PURE HYPERCHOLESTEROLEMIA, UNSPECIFIED 04/25/2018 BERNICE CAMPOS DO Ot E83.42 HYPOMAGNESEMIA 04/25/2018 BERNICE CAMPOS DO Ot E87.1 HYPO-OSMOLALITY AND HYPONATREMIA 04/25/2018 BERNICE CAMPOS DO Ot 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 04/25/2018 BERNICE CAMPOS DO Ot H40.9 UNSPECIFIED GLAUCOMA 04/25/2018 BERNICE CAMPOS DO Ot I13.0 HYP HRT CHR [place] DIS W HRT FAIL AND ST 04/25/2018 BERNICE CAMPOS DO Ot I25.10 ATHSCL HEART DISEASE OF [place] CORONARY 04/25/2018 BERNICE CAMPOS DO Ot I50.9 HEART FAILURE, UNSPECIFIED 04/25/2018 BERNICE CAMPOS DO Ot I95.9 HYPOTENSION, UNSPECIFIED 04/25/2018 BERNICE CAMPOS DO Ot J98.11 ATELECTASIS 04/25/2018 BERNICE CAMPOS DO Ot K59.09 OTHER CONSTIPATION 04/25/2018 BERNICE CAMPOS DO Ot M48.062 SPINAL STENOSIS, LUMBAR REGION WITH NEUR 04/25/2018 BERNICE CAMPOS DO Ot M54.16 RADICULOPATHY, LUMBAR REGION 04/25/2018 BERNICE CAMPOS DO Ot N18.9 CHRONIC KIDNEY DISEASE, UNSPECIFIED 04/25/2018 BERNICE CAMPOS DO Ot R00.0 TACHYCARDIA, UNSPECIFIED 04/25/2018 BERNICE CAMPOS DO Ot R34 ANURIA AND OLIGURIA 04/25/2018 BERNICE CAMPOS DO Ot R35.0 FREQUENCY OF MICTURITION 04/25/2018 BERNICE CAMPOS DO Ot R41.0 DISORIENTATION, UNSPECIFIED 04/25/2018 BERNICE CAMPOS DO Ot Z68.31 BODY MASS INDEX (BMI) 31.0-31.9, ADULT 04/25/2018 BERNICE CAMPOS DO Ot Z79.84 SENIOR CARE (CURRENT) USE OF ORAL HYPOGLYC 04/25/2018 BERNICE CAMPOS DO Ot Z86.79 PERSONAL HISTORY OF OTHER DISEASES OF TH 04/25/2018 BERNICE CAMPOS DO Ot Z87.891 PERSONAL HISTORY OF NICOTINE DEPENDENCE 04/25/2018 BERNICE CAMPOS DO Ot Z91.19 PATIENT'S NONCOMPLIANCE W [facility] 04/25/2018 BERNICE CAMPOS DO Ot Z95.1 PRESENCE OF AORTOCORONARY BYPASS GRAFT 04/25/2018 BERNICE CAMPOS DO Ot Z95.828 PRESENCE OF OTHER VASCULAR IMPLANTS AND 04/26/2018 BERNICE CAMPOS DO Ot D62 ACUTE POSTHEMORRHAGIC ANEMIA 04/26/2018 BERNICE CAMPOS DO Ot D72.829 ELEVATED WHITE BLOOD CELL COUNT, UNSPECI 04/26/2018 BERNIEC CAMPOS DO Ot E11.9 TYPE 2 DIABETES MELLITUS WITHOUT COMPLIC 04/26/2018 BERNICE CAMPOS DO Ot E66.9 OBESITY, UNSPECIFIED 04/26/2018 BERNICE CAMPOS DO Ot E78.00 PURE HYPERCHOLESTEROLEMIA, UNSPECIFIED 04/26/2018 BERNICE CAMPOS DO Ot E83.42 HYPOMAGNESEMIA 04/26/2018 BERNICE CAMPOS DO Ot E87.1 HYPO-OSMOLALITY AND HYPONATREMIA 04/26/2018 BERNICE CAMPOS DO Ot 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 04/26/2018 BERNICE CAMPOS DO Ot H40.9 UNSPECIFIED GLAUCOMA 04/26/2018 BERNICE CAMPOS DO Ot I13.0 HYP HRT CHR [place] DIS W HRT FAIL AND ST 04/26/2018 BERNICE CAMPOS DO Ot I25.10 ATHSCL HEART DISEASE OF [place] CORONARY 04/26/2018 BERNICE CAMPOS DO Ot I50.9 HEART FAILURE, UNSPECIFIED 04/26/2018 BERNICE CAMPOS DO Ot I95.9 HYPOTENSION, UNSPECIFIED 04/26/2018 BERNICE CAMPOS DO Ot J98.11 ATELECTASIS 04/26/2018 BERNICE CAMPOS DO Ot K59.09 OTHER CONSTIPATION 04/26/2018 BERNICE CAMPOS DO Ot M48.062 SPINAL STENOSIS, LUMBAR REGION WITH NEUR 04/26/2018 BERNICE CAMPOS DO Ot M54.16 RADICULOPATHY, LUMBAR REGION 04/26/2018 BERNICE CAMPOS DO Ot N18.9 CHRONIC KIDNEY DISEASE, UNSPECIFIED 04/26/2018 BERNICE CAMPOS DO Ot R00.0 TACHYCARDIA, UNSPECIFIED 04/26/2018 BERNICE CAMPOS DO Ot R34 ANURIA AND OLIGURIA 04/26/2018 BERNICE CAMPOS DO Ot R35.0 FREQUENCY OF MICTURITION 04/26/2018 BERNICE CAMPOS DO Ot R41.0 DISORIENTATION, UNSPECIFIED 04/26/2018 BERNICE CAMPOS DO Ot Z68.31 BODY MASS INDEX (BMI) 31.0-31.9, ADULT 04/26/2018 BERNICE CAMPOS DO, Ot Z79.84 SENIOR CARE (CURRENT) USE OF ORAL HYPOGLYC 04/26/2018 BERNICE CAMPOS DO Ot Z86.79 PERSONAL HISTORY OF OTHER DISEASES OF TH 04/26/2018 BERNICE CAMPOS DO, Ot Z87.891 PERSONAL HISTORY OF NICOTINE DEPENDENCE 04/26/2018 BERNICE CAMPOS DO, Ot Z91.19 PATIENT'S NONCOMPLIANCE W [facility] 04/26/2018 BERNICE CAMPOS DO Ot Z95.1 PRESENCE OF AORTOCORONARY BYPASS GRAFT 04/26/2018 BERNICE CAMPOS DO Ot Z95.828 PRESENCE OF OTHER VASCULAR IMPLANTS AND 04/27/2018 BERNICE CAMPOS DO Ot D62 ACUTE POSTHEMORRHAGIC ANEMIA 04/27/2018 BERNICE CAMPOS DO, Ot D72.829 ELEVATED WHITE BLOOD CELL COUNT, UNSPECI 04/27/2018 BERNICE CAMPOS DO Ot E11.9 TYPE 2 DIABETES MELLITUS WITHOUT COMPLIC 04/27/2018 BERNICE CAMPOS DO Ot E66.9 OBESITY, UNSPECIFIED 04/27/2018 BERNICE CAMPOS DO Ot E78.00 PURE HYPERCHOLESTEROLEMIA, UNSPECIFIED 04/27/2018 BERNICE CAMPOS DO Ot E83.42 HYPOMAGNESEMIA 04/27/2018 BERNICE CAMPOS DO Ot E87.1 HYPO-OSMOLALITY AND HYPONATREMIA 04/27/2018 BERNICE CAMPOS DO Ot 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 04/27/2018 BERNICE CAMPOS DO Ot H40.9 UNSPECIFIED GLAUCOMA 04/27/2018 BERNICE CAMPOS DO Ot I13.0 HYP HRT CHR [place] DIS W HRT FAIL AND ST 04/27/2018 BERNICE CAMPOS DO, Ot I25.10 ATHSCL HEART DISEASE OF [place] CORONARY 04/27/2018 BERNICE CAMPOS DO Ot I50.9 HEART FAILURE, UNSPECIFIED 04/27/2018 BERNICE CAMPOS DO Ot I95.9 HYPOTENSION, UNSPECIFIED 04/27/2018 BERNICE CAMPOS DO Ot J98.11 ATELECTASIS 04/27/2018 BERNICE CAMPOS DO Ot K59.09 OTHER CONSTIPATION 04/27/2018 BERNICE CAMPOS DO Ot M48.062 SPINAL STENOSIS, LUMBAR REGION WITH NEUR 04/27/2018 BERNICE CAMPOS DO Ot M54.16 RADICULOPATHY, LUMBAR REGION 04/27/2018 BERNICE CAMPOS DO Ot N18.9 CHRONIC KIDNEY DISEASE, UNSPECIFIED 04/27/2018 BERNICE CAMPOS DO Ot R00.0 TACHYCARDIA, UNSPECIFIED 04/27/2018 BERNICE CAMPOS DO Ot R34 ANURIA AND OLIGURIA 04/27/2018 BERNICE CAMPOS DO Ot R35.0 FREQUENCY OF MICTURITION 04/27/2018 BERNICE CAMPOS DO Ot R41.0 DISORIENTATION, UNSPECIFIED 04/27/2018 BERNICE CAMPOS DO Ot Z68.31 BODY MASS INDEX (BMI) 31.0-31.9, ADULT 04/27/2018 BERNICE CAMPOS DO Ot Z79.84 MANAGEMENT EXPERT (CURRENT) USE OF ORAL HYPOGLYC 04/27/2018 BERNICE CAMPOS DO Ot Z86.79 PERSONAL HISTORY OF OTHER DISEASES OF TH 04/27/2018 BERNICE CAMPOS DO Ot Z87.891 PERSONAL HISTORY OF NICOTINE DEPENDENCE 04/27/2018 BERNICE CAMPOS DO Ot Z91.19 PATIENT'S NONCOMPLIANCE W [facility] 04/27/2018 BERNICE CAMPOS DO Ot Z95.1 PRESENCE OF AORTOCORONARY BYPASS GRAFT 04/27/2018 BERNICE CAMPOS DO, Ot Z95.828 PRESENCE OF OTHER VASCULAR IMPLANTS AND 04/27/2018 BERNICE CAMPOS DO Ot D62 ACUTE POSTHEMORRHAGIC ANEMIA 04/27/2018 BERNICE CAMPOS DO, Ot D72.829 ELEVATED WHITE BLOOD CELL COUNT, UNSPECI 04/27/2018 BERNICE CAMPOS DO Ot E11.42 TYPE 2 DIABETES MELLITUS WITH DIABETIC P 04/27/2018 BERNICE CAMPOS DO Ot E11.9 TYPE 2 DIABETES MELLITUS WITHOUT COMPLIC 04/27/2018 BERNICE CAMPOS DO Ot E66.9 OBESITY, UNSPECIFIED 04/27/2018 BERNICE CAMPOS DO Ot E78.00 PURE HYPERCHOLESTEROLEMIA, UNSPECIFIED 04/27/2018 BERNICE CAMPOS DO Ot E83.42 HYPOMAGNESEMIA 04/27/2018 BERNICE CAMPOS DO Ot E87.1 HYPO-OSMOLALITY AND HYPONATREMIA 04/27/2018 BERNICE CAMPOS DO Ot 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 04/27/2018 BERNICE CAMPOS DO Ot H40.9 UNSPECIFIED GLAUCOMA 04/27/2018 BERNICE CAMPOS DO, Ot I13.0 HYP HRT CHR [place] DIS W HRT FAIL AND ST 04/27/2018 BERNICE CAMPOS DO, Ot I25.10 ATHSCL HEART DISEASE OF [place] CORONARY 04/27/2018 BERNICE CAMPOS DO Ot I42.9 CARDIOMYOPATHY, UNSPECIFIED 04/27/2018 BERNICE CAMPOS DO, Ot I50.9 HEART FAILURE, UNSPECIFIED 04/27/2018 BERNICE CAMPOS DO, Ot I95.9 HYPOTENSION, UNSPECIFIED 04/27/2018 BERNICE CAMPOS DO, Ot J44.9 CHRONIC OBSTRUCTIVE PULMONARY DISEASE, U 04/27/2018 BERNICE CAMPOS DO, Ot J98.11 ATELECTASIS 04/27/2018 BERNICE CAMPOS DO Ot K59.09 OTHER CONSTIPATION 04/27/2018 BERNICE CAMPOS DO, Ot M48.062 SPINAL STENOSIS, LUMBAR REGION WITH NEUR 04/27/2018 BERNICE CAMPOS DO, Ot M54.16 RADICULOPATHY, LUMBAR REGION 04/27/2018 BERNICE CAMPOS DO, Ot N17.9 ACUTE KIDNEY FAILURE, UNSPECIFIED 04/27/2018 BERNICE CAMPOS DO, Ot N18.9 CHRONIC KIDNEY DISEASE, UNSPECIFIED 04/27/2018 BERNICE CAMPOS DO Ot R00.0 TACHYCARDIA, UNSPECIFIED 04/27/2018 BERNICE CAMPOS DO Ot R34 ANURIA AND OLIGURIA 04/27/2018 BERNICE CAMPOS DO, Ot R35.0 FREQUENCY OF MICTURITION 04/27/2018 BERNICE CAMPOS DO, Ot R41.0 DISORIENTATION, UNSPECIFIED 04/27/2018 BERNICE CAMPOS DO Ot Z68.31 BODY MASS INDEX (BMI) 31.0-31.9, ADULT 04/27/2018 BERNICE CAMPOS DO Ot Z79.84 MANAGEMENT EXPERT (CURRENT) USE OF ORAL HYPOGLYC 04/27/2018 BERNICE CAMPOS DO Ot Z86.79 PERSONAL HISTORY OF OTHER DISEASES OF TH 04/27/2018 BERNICE CAMPOS DO, Ot Z87.891 PERSONAL HISTORY OF NICOTINE DEPENDENCE 04/27/2018 BERNICE CAMPOS DO, Ot Z91.19 PATIENT'S NONCOMPLIANCE W OT MEDICAL TR 04/27/2018 BERNICE CAMPOS DO Ot Z95.1 PRESENCE OF AORTOCORONARY BYPASS GRAFT 04/27/2018 BERNICE CAMPOS DO Ot Z95.828 PRESENCE OF OTHER VASCULAR IMPLANTS AND 05/18/2018 Ot 478.0 HYPERTRPH NASAL TURBINAT 05/18/2018 Ot 780.79 OTH MALAISE FATIGUE 05/18/2018 Ot V72.63 PRE- PROCEDURAL LABORATORY EXAMINATION 05/18/2018 Ot V72.81 EXAM-PRE- OPERATIVE CARDIOVASCULAR 05/18/2018 Ot V72.83 EXAM PRE- OPERATIVE NEC 05/18/2018 Ot V74.8 SCREEN- BACTERIAL DIS NEC 05/18/2018 CRISTINA HICKEY DO Ot 721.3 LUMBOSACRAL SPONDYLOSIS 05/18/2018 CRISTINA HICKEY DO Ot 726.5 ENTHESOPATHY OF HIP 05/18/2018 SAIDA GUEVARA DO Ot R07.81 PLEURODYNIA 05/18/2018 CALOS BALDERRAMA MD Ot M47.816 SPONDYLOSIS W/O MYELOPATHY OR RADICULOPA 05/18/2018 CALOS BALDERRAMA MD Ot Z79.84 SENIOR CARE (CURRENT) USE OF ORAL HYPOGLYC 05/18/2018 CALOS BALDERRAMA MD Ot Z79.899 OTHER SENIOR CARE (CURRENT) DRUG THERAPY Procedures Code Description Performed By Performed On [id number] FUSION LUM JT W INTBD FUS DEV, ANT APPR 04/23/2018 [id number] FUSION LUM JT W INTBD FUS DEV, POST APPR 04/23/2018 [id number] FUSION 2-4 L JT W AUTOL SUB, POST APPR P 04/23/2018 Results Test Result Range Capillary blood glucose [...] Staphylococcus aureus (MRSA) screening culture NEG NRG Capillary blood glucose measurement by glucometer (mass/volume) - 04/23/18 11: 09 Capillary blood glucose measurement by glucometer (mass/volume) 150 mg/dL 70-110 Complete blood count (CBC) with automated white blood cell (WBC) differential - 04/23/18 11:17 Blood leukocytes automated count (number/volume) 8.3 10*3/uL 4.3-11.0 Blood erythrocytes automated count (number/volume) 3.71 10*6/uL 4.35-5.85 Venous blood hemoglobin measurement (mass/volume) 11.6 g/dL 13.3-17.7 Blood hematocrit (volume fraction) 35 % 40-54 Automated erythrocyte mean corpuscular volume 95 [foz_us] 80-99 Automated erythrocyte mean corpuscular hemoglobin (mass per erythrocyte) 31 pg 25-34 Automated erythrocyte mean corpuscular hemoglobin concentration measurement ( mass/volume) 33 g/dL 32-36 Automated erythrocyte distribution width ratio 15.2 % 10.0-14.5 Automated blood platelet count (count/volume) 519 10*3/uL 130-400 Automated blood platelet mean volume measurement 9.1 [foz_us] 7.4-10.4 Automated blood neutrophils/100 leukocytes 73 % 42-75 Automated blood lymphocytes/100 leukocytes 13 % 12-44 Blood monocytes/100 leukocytes 14 % 0-12 Automated blood eosinophils/100 leukocytes 1 % 0-10 Automated blood basophils/100 leukocytes 0 % 0-10 Blood neutrophils automated count (number/volume) 6.0 10*3 1.8-7.8 Blood lymphocytes automated count (number/volume) 1.1 10*3 1.0-4.0 Blood monocytes automated count (number/volume) 1.1 10*3 0.0-1.0 Automated eosinophil count 0.0 10*3/uL 0.0-0.3 Automated blood basophil count (count/volume) 0.0 10*3/uL 0.0-0.1 RED CELLS LEUKO REDUCED AS1 - 04/23/18 11:17 RED CELLS LEUKO REDUCED AS1 TRANSFUSED 04/24/18 [id number] NRG Blood type T Indirect antibody screen panel - 04/23/18 11:17 ABO+Rh group OP NRG Transfusion band number [id number] NRG Blood group antibody screen NEGATIVE NRG Capillary blood glucose measurement by glucometer (mass/volume) - 04/23/18 20: 49 Capillary blood glucose measurement by glucometer (mass/volume) 139 mg/dL 70-110 Automated blood complete blood count (hemogram) panel - 04/23/18 23:10 Blood leukocytes automated count (number/volume) 13.5 10*3/uL 4.3-11.0 Blood erythrocytes automated count (number/volume) 3.03 10*6/uL 4.35-5.85 Venous blood hemoglobin measurement (mass/volume) 9.5 g/dL 13.3-17.7 Blood hematocrit (volume fraction) 29 % 40-54 Automated erythrocyte mean corpuscular volume 97 [foz_us] 80-99 Automated erythrocyte mean corpuscular hemoglobin (mass per erythrocyte) 31 pg 25-34 Automated erythrocyte mean corpuscular hemoglobin concentration measurement ( mass/volume) 32 g/dL 32-36 Automated erythrocyte distribution width ratio 15.1 % 10.0-14.5 Automated blood platelet count (count/volume) 412 10*3/uL 130-400 Automated blood platelet mean volume measurement 9.1 [foz_us] 7.4-10.4 Comprehensive metabolic panel - 04/23/18 23:10 Serum or plasma sodium measurement (moles/volume) 135 mmol/L 135-145 Serum or plasma potassium measurement (moles/volume) 5.0 mmol/L 3.6-5.0 Serum or plasma chloride measurement (moles/volume) 100 mmol/L 98-107 Carbon dioxide 22 mmol/L 21-32 Serum or plasma anion gap determination (moles/volume) 13 mmol/L 5-14 Serum or plasma urea nitrogen measurement (mass/volume) 23 mg/dL 7-18 Serum or plasma creatinine measurement (mass/volume) 1.53 mg/dL 0.60-1.30 Serum or plasma urea nitrogen/creatinine mass ratio 15 NRG Serum or plasma creatinine measurement with calculation of estimated glomerular filtration rate 45 NRG Serum or plasma glucose measurement (mass/volume) 149 mg/dL 70-105 Serum or plasma calcium measurement (mass/volume) 8.8 mg/dL 8.5-10.1 Serum or plasma total bilirubin measurement (mass/volume) 0.3 mg/dL 0.1-1.0 Serum or plasma alkaline phosphatase measurement (enzymatic activity/volume) 90 U/L 40-136 Serum or plasma aspartate aminotransferase measurement (enzymatic activity/ volume) 20 U/L 5-34 Serum or plasma alanine aminotransferase measurement (enzymatic activity/volume ) 10 U/L 0-55 Serum or plasma protein measurement (mass/volume) 6.2 g/dL 6.4-8.2 Serum or plasma albumin measurement (mass/volume) 2.7 g/dL 3.2-4.5 Complete blood count (CBC) with automated white blood cell (WBC) differential - 04/24/18 05:10 Blood leukocytes automated count (number/volume) 12.5 10*3/uL 4.3-11.0 Blood erythrocytes automated count (number/volume) 2.90 10*6/uL 4.35-5.85 Venous blood hemoglobin measurement (mass/volume) 8.7 g/dL 13.3-17.7 Blood hematocrit (volume fraction) 28 % 40-54 Automated erythrocyte mean corpuscular volume 97 [foz_us] 80-99 Automated erythrocyte mean corpuscular hemoglobin (mass per erythrocyte) 30 pg 25-34 Automated erythrocyte mean corpuscular hemoglobin concentration measurement ( mass/volume) 31 g/dL 32-36 Automated erythrocyte distribution width ratio 15.3 % 10.0-14.5 Automated blood platelet count (count/volume) 411 10*3/uL 130-400 Automated blood platelet mean volume measurement 9.1 [foz_us] 7.4-10.4 Automated blood neutrophils/100 leukocytes 80 % 42-75 Automated blood lymphocytes/100 leukocytes 10 % 12-44 Blood monocytes/100 leukocytes 10 % 0-12 Automated blood eosinophils/100 leukocytes 0 % 0-10 Automated blood basophils/100 leukocytes 0 % 0-10 Blood neutrophils automated count (number/volume) 10.1 10*3 1.8-7.8 Blood lymphocytes automated count (number/volume) 1.2 10*3 1.0-4.0 Blood monocytes automated count (number/volume) 1.2 10*3 0.0-1.0 Automated eosinophil count 0.0 10*3/uL 0.0-0.3 Automated blood basophil count (count/volume) 0.0 10*3/uL 0.0-0.1 Whole blood basic metabolic panel - 04/24/18 05:10 Serum or plasma sodium measurement (moles/volume) 134 mmol/L 135-145 Serum or plasma potassium measurement (moles/volume) 5.7 mmol/L 3.6-5.0 Serum or plasma chloride measurement (moles/volume) 101 mmol/L 98-107 Carbon dioxide 20 mmol/L 21-32 Serum or plasma anion gap determination (moles/volume) 13 mmol/L 5-14 Serum or plasma urea nitrogen measurement (mass/volume) 25 mg/dL 7-18 Serum or plasma creatinine measurement (mass/volume) 1.87 mg/dL 0.60-1.30 Serum or plasma urea nitrogen/creatinine mass ratio 13 NRG Serum or plasma creatinine measurement with calculation of estimated glomerular filtration rate 35 NRG Serum or plasma glucose measurement (mass/volume) 161 mg/dL 70-105 Serum or plasma calcium measurement (mass/volume) 8.5 mg/dL 8.5-10.1 Serum or plasma phosphate measurement (mass/volume) - 04/24/18 05:10 Serum or plasma phosphate measurement (mass/volume) 4.3 mg/dL 2.3-4.7 Magnesium - 04/24/18 05:10 Magnesium 1.4 mg/dL 1.8-2.4 Capillary blood glucose measurement by glucometer (mass/volume) - 04/24/18 11: 58 Capillary blood glucose measurement by glucometer (mass/volume) 198 mg/dL 70-110 Whole blood hemoglobin and hematocrit panel - 04/24/18 14:00 Venous blood hemoglobin measurement (mass/volume) 7.6 g/dL 13.3-17.7 Blood hematocrit (volume fraction) 24 % 40-54 Capillary blood glucose measurement by glucometer (mass/volume) - 04/24/18 15: 04 Capillary blood glucose measurement by glucometer (mass/volume) 157 mg/dL 70-110 Capillary blood glucose measurement by glucometer (mass/volume) - 04/24/18 21: 05 Capillary blood glucose measurement by glucometer (mass/volume) 166 mg/dL 70-110 Complete blood count (CBC) with automated white blood cell (WBC) differential - 04/25/18 03:15 Blood leukocytes automated count (number/volume) 12.4 10*3/uL 4.3-11.0 Blood erythrocytes automated count (number/volume) 2.67 10*6/uL 4.35-5.85 Venous blood hemoglobin measurement (mass/volume) 8.3 g/dL 13.3-17.7 Blood hematocrit (volume fraction) 25 % 40-54 Automated erythrocyte mean corpuscular volume 94 [foz_us] 80-99 Automated erythrocyte mean corpuscular hemoglobin (mass per erythrocyte) 31 pg 25-34 Automated erythrocyte mean corpuscular hemoglobin concentration measurement ( mass/volume) 33 g/dL 32-36 Automated erythrocyte distribution width ratio 16.1 % 10.0-14.5 Automated blood platelet count (count/volume) 396 10*3/uL 130-400 Automated blood platelet mean volume measurement 9.1 [foz_us] 7.4-10.4 Automated blood neutrophils/100 leukocytes 78 % 42-75 Automated blood lymphocytes/100 leukocytes 10 % 12-44 Blood monocytes/100 leukocytes 12 % 0-12 Automated blood eosinophils/100 leukocytes 0 % 0-10 Automated blood basophils/100 leukocytes 0 % 0-10 Blood neutrophils automated count (number/volume) 9.6 10*3 1.8-7.8 Blood lymphocytes automated count (number/volume) 1.2 10*3 1.0-4.0 Blood monocytes automated count (number/volume) 1.5 10*3 0.0-1.0 Automated eosinophil count 0.0 10*3/uL 0.0-0.3 Automated blood basophil count (count/volume) 0.0 10*3/uL 0.0-0.1 Whole blood basic metabolic panel - 04/25/18 03:15 Serum or plasma sodium measurement (moles/volume) 133 mmol/L 135-145 Serum or plasma potassium measurement (moles/volume) 4.6 mmol/L 3.6-5.0 Serum or plasma chloride measurement (moles/volume) 101 mmol/L 98-107 Carbon dioxide 18 mmol/L 21-32 Serum or plasma anion gap determination (moles/volume) 14 mmol/L 5-14 Serum or plasma urea nitrogen measurement (mass/volume) 25 mg/dL 7-18 Serum or plasma creatinine measurement (mass/volume) 1.52 mg/dL 0.60-1.30 Serum or plasma urea nitrogen/creatinine mass ratio 16 NRG Serum or plasma creatinine measurement with calculation of estimated glomerular filtration rate 45 NRG Serum or plasma glucose measurement (mass/volume) 161 mg/dL 70-105 Serum or plasma calcium measurement (mass/volume) 8.3 mg/dL 8.5-10.1 Serum or plasma phosphate measurement (mass/volume) - 04/25/18 03:15 Serum or plasma phosphate measurement (mass/volume) 3.0 mg/dL 2.3-4.7 Magnesium - 04/25/18 03:15 Magnesium 1.7 mg/dL 1.8-2.4 Capillary blood glucose measurement by glucometer (mass/volume) - 04/25/18 09: 51 Capillary blood glucose measurement by glucometer (mass/volume) 200 mg/dL 70-110 Capillary blood glucose measurement by glucometer (mass/volume) - 04/25/18 14: 33 Capillary blood glucose measurement by glucometer (mass/volume) 198 mg/dL 70-110 Capillary blood glucose measurement by glucometer (mass/volume) - 04/25/18 19: 26 Capillary blood glucose measurement by glucometer (mass/volume) 151 mg/dL 70-110 Capillary blood glucose measurement by glucometer (mass/volume) - 04/26/18 04: 39 Capillary blood glucose measurement by glucometer (mass/volume) 229 mg/dL 70-110 Complete blood count (CBC) with automated white blood cell (WBC) differential - 04/26/18 05:41 Blood leukocytes automated count (number/volume) 10.3 10*3/uL 4.3-11.0 Blood erythrocytes automated count (number/volume) 2.85 10*6/uL 4.35-5.85 Venous blood hemoglobin measurement (mass/volume) 8.7 g/dL 13.3-17.7 Blood hematocrit (volume fraction) 27 % 40-54 Automated erythrocyte mean corpuscular volume 94 [foz_us] 80-99 Automated erythrocyte mean corpuscular hemoglobin (mass per erythrocyte) 31 pg 25-34 Automated erythrocyte mean corpuscular hemoglobin concentration measurement ( mass/volume) 33 g/dL 32-36 Automated erythrocyte distribution width ratio 16.1 % 10.0-14.5 Automated blood platelet count (count/volume) 445 10*3/uL 130-400 Automated blood platelet mean volume measurement 9.4 [foz_us] 7.4-10.4 Automated blood neutrophils/100 leukocytes 82 % 42-75 Automated blood lymphocytes/100 leukocytes 7 % 12-44 Blood monocytes/100 leukocytes 11 % 0-12 Automated blood eosinophils/100 leukocytes 0 % 0-10 Automated blood basophils/100 leukocytes 0 % 0-10 Blood neutrophils automated count (number/volume) 8.4 10*3 1.8-7.8 Blood lymphocytes automated count (number/volume) 0.7 10*3 1.0-4.0 Blood monocytes automated count (number/volume) 1.1 10*3 0.0-1.0 Automated eosinophil count 0.0 10*3/uL 0.0-0.3 Automated blood basophil count (count/volume) 0.0 10*3/uL 0.0-0.1 Whole blood basic metabolic panel - 04/26/18 05:41 Serum or plasma sodium measurement (moles/volume) 135 mmol/L 135-145 Serum or plasma potassium measurement (moles/volume) 4.7 mmol/L 3.6-5.0 Serum or plasma chloride measurement (moles/volume) 101 mmol/L 98-107 Carbon dioxide 20 mmol/L 21-32 Serum or plasma anion gap determination (moles/volume) 14 mmol/L 5-14 Serum or plasma urea nitrogen measurement (mass/volume) 20 mg/dL 7-18 Serum or plasma creatinine measurement (mass/volume) 1.20 mg/dL 0.60-1.30 Serum or plasma urea nitrogen/creatinine mass ratio 17 NRG Serum or plasma creatinine measurement with calculation of estimated glomerular filtration rate 59 NRG Serum or plasma glucose measurement (mass/volume) 188 mg/dL 70-105 Serum or plasma calcium measurement (mass/volume) 9.0 mg/dL 8.5-10.1 Serum or plasma phosphate measurement (mass/volume) - 04/26/18 05:41 Serum or plasma phosphate measurement (mass/volume) 2.3 mg/dL 2.3-4.7 Magnesium - 04/26/18 05:41 Magnesium 2.2 mg/dL 1.8-2.4 Blood manual differential performed detection - 04/26/18 05:41 Blood monocytes/100 leukocytes 4 % NRG Manual blood segmented neutrophils/100 leukocytes 89 % NRG Blood band neutrophils/100 leukocytes 2 % NRG Manual blood lymphocytes/100 leukocytes 5 % NRG Manual eosinophils/100 leukocytes in nose 0 % NRG Manual blood basophils/100 leukocytes 0 % NRG Blood polychromasia detection by light microscopy SLIGHT NRG Blood anisocytosis detection by light microscopy MODERATE NRG Blood hypochromia detection by light microscopy MODERATE NRG Capillary blood glucose measurement by glucometer (mass/volume) - 04/26/18 06: 37 Capillary blood glucose measurement by glucometer (mass/volume) 189 mg/dL 70-110 Capillary blood glucose measurement by glucometer (mass/volume) - 04/26/18 10: 03 Capillary blood glucose measurement by glucometer (mass/volume) 303 mg/dL 70-110 Capillary blood glucose measurement by glucometer (mass/volume) - 04/26/18 13: 15 Capillary blood glucose measurement by glucometer (mass/volume) 173 mg/dL 70-110 Capillary blood glucose measurement by glucometer (mass/volume) - 04/26/18 15: 30 Capillary blood glucose measurement by glucometer (mass/volume) 157 mg/dL 70-110 Capillary blood glucose measurement by glucometer (mass/volume) - 04/26/18 20: 29 Capillary blood glucose measurement by glucometer (mass/volume) 186 mg/dL 70-110 Complete blood count (CBC) with automated white blood cell (WBC) differential - 04/27/18 03:35 Blood leukocytes automated count (number/volume) 8.3 10*3/uL 4.3-11.0 Blood erythrocytes automated count (number/volume) 2.80 10*6/uL 4.35-5.85 Venous blood hemoglobin measurement (mass/volume) 8.7 g/dL 13.3-17.7 Blood hematocrit (volume fraction) 26 % 40-54 Automated erythrocyte mean corpuscular volume 94 [foz_us] 80-99 Automated erythrocyte mean corpuscular hemoglobin (mass per erythrocyte) 31 pg 25-34 Automated erythrocyte mean corpuscular hemoglobin concentration measurement ( mass/volume) 33 g/dL 32-36 Automated erythrocyte distribution width ratio 15.8 % 10.0-14.5 Automated blood platelet count (count/volume) 426 10*3/uL 130-400 Automated blood platelet mean volume measurement 9.1 [foz_us] 7.4-10.4 Automated blood neutrophils/100 leukocytes 75 % 42-75 Automated blood lymphocytes/100 leukocytes 12 % 12-44 Blood monocytes/100 leukocytes 12 % 0-12 Automated blood eosinophils/100 leukocytes 1 % 0-10 Automated blood basophils/100 leukocytes 0 % 0-10 Blood neutrophils automated count (number/volume) 6.2 10*3 1.8-7.8 Blood lymphocytes automated count (number/volume) 1.0 10*3 1.0-4.0 Blood monocytes automated count (number/volume) 1.0 10*3 0.0-1.0 Automated eosinophil count 0.1 10*3/uL 0.0-0.3 Automated blood basophil count (count/volume) 0.0 10*3/uL 0.0-0.1 Whole blood basic metabolic panel - 04/27/18 03:35 Serum or plasma sodium measurement (moles/volume) 134 mmol/L 135-145 Serum or plasma potassium measurement (moles/volume) 4.6 mmol/L 3.6-5.0 Serum or plasma chloride measurement (moles/volume) 100 mmol/L 98-107 Carbon dioxide 20 mmol/L 21-32 Serum or plasma anion gap determination (moles/volume) 14 mmol/L 5-14 Serum or plasma urea nitrogen measurement (mass/volume) 20 mg/dL 7-18 Serum or plasma creatinine measurement (mass/volume) 1.16 mg/dL 0.60-1.30 Serum or plasma urea nitrogen/creatinine mass ratio 17 NRG Serum or plasma creatinine measurement with calculation of estimated glomerular filtration rate > NRG Serum or plasma glucose measurement (mass/volume) 152 mg/dL 70-105 Serum or plasma calcium measurement (mass/volume) 9.2 mg/dL 8.5-10.1 Serum or plasma phosphate measurement (mass/volume) - 04/27/18 03:35 Serum or plasma phosphate measurement (mass/volume) 2.5 mg/dL 2.3-4.7 Magnesium - 04/27/18 03:35 Magnesium 1.9 mg/dL 1.8-2.4 Capillary blood glucose measurement by glucometer (mass/volume) - 04/27/18 07: 04 Capillary blood glucose measurement by glucometer (mass/volume) 258 mg/dL 70-110 Capillary blood glucose measurement by glucometer (mass/volume) - 04/27/18 11: 07 Capillary blood glucose measurement by glucometer (mass/volume) 295 mg/dL 70-110 Complete urinalysis with reflex to culture - 04/27/18 13:23 Urine color determination YELLOW NRG Urine clarity determination CLEAR NRG Urine pH measurement by test strip 7 5-9 Specific gravity of urine by test strip 1.005 1.016- 1.022 Urine protein assay by test strip, semi-quantitative NEGATIVE NEGATIVE Urine glucose detection by automated test strip NEGATIVE NEGATIVE Erythrocytes detection in urine sediment by light microscopy NEGATIVE NEGATIVE Urine ketones detection by automated test strip NEGATIVE NEGATIVE Urine nitrite detection by test strip NEGATIVE NEGATIVE Urine total bilirubin detection by test strip NEGATIVE NEGATIVE Urine urobilinogen measurement by automated test strip (mass/volume) NORMAL NORMAL Urine leukocyte esterase detection by dipstick 1+ NEGATIVE Automated urine sediment erythrocyte count by microscopy (number/high power field) NONE NRG Automated urine sediment leukocyte count by microscopy (number/high power field ) [HPF] NRG Bacteria detection in urine sediment by light microscopy NEGATIVE NRG Squamous epithelial cells detection in urine sediment by light microscopy NONE NRG Crystals detection in urine sediment by light microscopy NONE NRG Casts detection in urine sediment by light microscopy NONE NRG Mucus detection in urine sediment by light microscopy NEGATIVE NRG Complete urinalysis with reflex to culture NO NRG Capillary blood glucose measurement by glucometer (mass/volume) - 04/27/18 13: 32 Capillary blood glucose measurement by glucometer (mass/volume) 176 mg/dL 70-110 Erythrocyte sedimentation rate by westergren method - 05/18/18 17:39 Erythrocyte sedimentation rate by westergren method > mm 0-30 Encounters ACCT No. Visit Date/Time Discharge Status Pt. Type Provider Facility Loc./Unit Complaint [id number] 05/18/2018 12:58:00 05/18/2018 14:41:00 DIS Emergency KIM HAWKINS [facility] ER DIZZINESS,CAN'T SEE [id number] 04/23/2018 10:39:00 04/27/2018 15:40:00 DIS Inpatient BERNICE CAMPOS DO [facility] 4TH STENOSIS [id number] 04/16/2018 12:47:00 04/16/2018 13:31:00 DIS Outpatient BERNICE CAMPOS DO [facility] PREOP STENOSIS [id number] 03/29/2018 04:57:00 03/29/2018 12:57:00 DIS Emergency LYDIA HIGUERA, MELISSA Williamson [facility] ER BACK PAIN [id number] 03/21/2018 14:50:00 03/23/2018 14:00:00 DIS Inpatient SAIDA GUEVARA DO S [facility] 4TH CHF,HYPOXIA,BACK PAIN [id number] 07/17/2017 10:00:00 07/17/2017 12:45:00 DIS Emergency LAMONT JERONIMO [employer] 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 [facility] ER RLS [id number] 06/30/2017 16:39:00 06/30/2017 18:24:00 DIS Emergency JOLYNN HIGUERA, DENNY S [facility] ER ANXIOUS [id number] 01/06/2017 12:03:00 01/06/2017 23:59:59 CLS Outpatient CALOS BALDERRAMA MD [facility] CARD [id number] 05/10/2016 15:47:00 05/10/2016 23:59:59 CLS Outpatient FILEMON DIAZ SAIDA S [facility] RAD RIB PAIN R [id number] 04/08/2016 08:55:00 04/08/2016 10:31:00 DIS Outpatient CALOS BALDERRAMA MD [facility] CARD SPONDYLOSIS [id number] 09/24/2015 12:26:00 09/24/2015 15:00:00 DIS Outpatient RAYMOND BALDERRAMA APRN [facility] WOUNDCARE [id number] 08/09/2015 11:17:00 08/09/2015 23:59:59 CLS Outpatient DOTTIE SANTIAGO WEB WORKER [facility] QUICK [id number] 07/10/2015 08:23:00 07/10/2015 09:40:00 DIS Outpatient CALOS BALDERRAMA MD [facility] CARD DDJD LUMBAR [id number] 06/26/2015 10:19:00 06/26/2015 11:47:00 DIS Outpatient CALOS BALDERRAMA MD [facility] CARD SIJD [id number] 05/29/2014 08:52:00 05/29/2014 23:59:59 CLS Outpatient EDELMIRA DIAZ CRISTINA [facility] RAD SEVERE LUMBAR SPONDOLOYSIS RIGHT HIP BURSITIS [id number] 05/18/2014 19:29:00 Document Registration [id number] 01/24/2013 08:47:00 Document Registration [id number] 01/17/2013 11:27:00 Document Registration [id number] 11/14/2012 07:11:00 Document Registration [id number] 10/18/2012 21:14:00 Document Registration [id number] 06/20/2011 09:36:00 Document Registration [id number] 08/10/2015 02:19:42 ACT Document Registration [id number] 03/09/2018 07:58:45 Document Registration [id number] 03/05/2018 13:08:15 Document Registration [id number] 01/17/2018 15:20:24 Document Registration [id number] 12/21/2017 07:54:33 Document Registration [id number] 12/05/2017 08:55:06 Document Registration [id number] 12/01/2017 08:29:21 Document Registration 12/201605/15/2018 15:17:24 05/15/2018 23:59:59 CLS Outpatient Saida Guevara
== END 2018-05-18 14:41 | disposition home or self-care (01) ==
LOC: EDUNIT# 12:52 → ER 12:58
DX: H40.213 Acute angle-closure glaucoma, bilateral (principal); E78.00 Pure hypercholesterolemia, unspecified; I11.0 Hypertensive heart disease with heart failure; I50.9 Heart failure, unspecified; I25.10 Atherosclerotic heart disease of native coronary artery without angina pectoris; E11.9 Type 2 diabetes mellitus without complications; Z87.19 Personal history of other diseases of the digestive system; Z87.448 Personal history of other diseases of urinary system; Z98.890 Other specified postprocedural states; Z79.82 Long term (current) use of aspirin; Z79.84 Long term (current) use of oral hypoglycemic drugs; Z87.891 Personal history of nicotine dependence; Z95.1 Presence of aortocoronary bypass graft; Z91.19 Patient's noncompliance with other medical treatment and regimen; Z95.5 Presence of coronary angioplasty implant and graft
CPT/HCPCS: 36415; 85652; 99282

== ENCOUNTER 2018-08-07 14:22 | Inpatient (IN) | payer MEDICARE, OTHER ==
[~2018-08-07] VITALS: Ht 185.4 cm; Wt 96.2 kg
[~2018-08-07 14:22] MED LIST changes: +METF-399 PO; -METF10002 PO
--- NOTE | 2018-08-07 14:46 | ED General ---
General Chief Complaint: Back Problems Stated Complaint: LOW OXYGEN Source of Information: Patient (VERY LIMITED HISTORIAN), Family (DAUGHTER IS ALSO VERY LIMITED HISTORIAN) History of Present Illness Date Seen by Provider: Aug 07, 2018 Time Seen by Provider: 14:29 Initial Comments PT ARRIVES VIA POV FROM HOME, WITH DAUGHTER. PT LIVES AT HOME WITH DAUGHTER STATES PT HAD BACK SURGERY 3 1/[address] CAMPOS, AND HAS BEEN AT [facility] FOR REHAB HAS BEEN HOME SINCE Monday08/04/18--"RAN OUT OF [facility] DAYS" PER DAUGHTER PT HAS NOT WALKED SINCE SURGERY DUE TO NERVE DAMAGE IN LEG. TODAY WAS FIRST DAY FOR HOME HEALTH OCCUPATIONAL THERAPIST. PT HAS BEEN TIRED ALL DAY AND CANNOT STAY AWAKE AT ALL DAUGHTER STATES THAT OCCUPATIONAL THERAPIST HAD BEEN GONE FROM THE HOUSE FOR OVER 3 HOURS, AND SOMEONE CALLED FROM HOME HEALTH/OCCUPATIONAL HEALTH AND TOLD THEM THAT HE NEEDED TO COME TO ER, BECAUSE HIS OXYGEN LEVEL WAS LOW AT 88%. OTHER VITALS--BP 130/75, HR 115, RR 20. PT STATES HE HAS BEEN "BREATHING RONN WEIRD TODAY" PT DENIES FEELING SHORT OF BREATH PT DENIES CHEST PAIN HAS CHRONIC SWELLING IN LEGS, AND IS NO DIFFERENT TODAY PT ONLY C/O LEFT BUTTOCK PAIN--PT SITS OR LAYS ALL DAY. PT HAS ONLY OCCASIONAL BACK PAIN, PER DAUGHTER, BUT HAS INCREASED THE LAST 3-4 DAYS. DAUGHTER STATES PT HAD"DAYS LIKE THIS" WHILE HE WAS IN HOSPITAL AND [facility], AND HAS BEEN ON OXYGEN OFF AND ON, BUT HAS NOT HAD ANY FOR THE LAST MONTH , AND REPORTEDLY NOT HAD ANY PROBLEMS. DAUGHTER STATES THAT PT SAW DR. WEIR, [facility] YESTERDAY FOR FOLLOW UP ON ANEURYSM DAUGHTER STATES THAT PT HAD ANEURYSM REPAIRED BEFORE BACK SURGERY, BUT HAS NO IDEA WHAT KIND OF SURGERY HE HAD ON IT--OPEN OR ENDOVASCULAR--DOES NOT KNOW IF HE HAS A SURGICAL SCAR ANYWHERE OR NOT. SHE ALSO HAS NO IDEA WHAT KIND OR WHAT PART OF HIS BACK HAD BACK SURGERY OR WHERE SURGICAL SCAR IS OR IF HE EVEN HAS ONE. PT IS ALSO DIABETIC, ONLY INTAKE TODAY HAS BEEN APPLESAUCE, THIS MORNING, AND BLOOD GLUCOSE HAS NOT BEEN CHECKED TODAY. PT WAS ADMITTED 03/20/18 FOR CHF, AND O2 SAT WAS 88-89% AT THAT TIME ALSO. PT HAS HISTORY OF NON-COMPLIANCE WITH MEDICATIONS PCP: DR. COLBERT Allergies and Home Medications Allergies Coded Allergies: No Known Drug Allergies (Unverified , 04/16/18) Home Medications Alfuzosin HCl 10 Mg Tab.er.24h, 10 MG PO DAILY, (Reported) Aspirin 325 Mg Tablet, 325 MG PO DAILY, (Reported) Baclofen 10 Mg Tablet, 20 MG PO HS, (Reported) TAKE 2 (10 MG) TABLETS AT BEDTIME Finasteride 5 Mg Tablet, 5 MG PO DAILY, (Reported) Furosemide 20 Mg Tablet, 40 MG PO DAILY Prescribed by: MAGED COLBERT on 04/27/18 1308 Hydrocodone/Acetaminophen 1 Each Tablet, 1 EACH PO Q4H Prescribed by: MAGED COLBERT on 04/27/18 1316 Ipratropium/Albuterol Sulfate 3 Ml Ampul.neb, 3 ML IH Q8H PRN for SHORTNESS OF BREATH, (Reported) Latanoprost 2.5 Ml Drops, 1 DROP OU HS, (Reported) Magnesium Oxide 400 Mg Tablet, 400 MG PO BID, (Reported) Metformin HCl 1,000 Mg Tablet, 1,000 MG PO BID, (Reported) Polyethylene Glycol 3350 17 Gm Powd.pack, 17 GM PO BID PRN for CONSTIPATION-2ND LINE, (Reported) Pramipexole Di-HCl 1.5 Mg Tablet, 1.5 MG PO TID PRN for RESTLESSNESS, (Reported) Sennosides 8.6 Mg Tablet, 8.6 MG PO TID PRN for CONSTIPATION-5TH LINE, (Reported ) Sulfamethoxazole/Trimethoprim 1 Each Tablet, 1 EACH PO BID Prescribed by: MAGED COLBERT on 04/27/18 1303 Patient Home Medication List Home Medication List Reviewed: Yes Review of Systems Review of Systems Constitutional: malaise EENTM: no symptoms reported Respiratory: see HPI; No cough Cardiovascular: no symptoms reported; No chest pain Gastrointestinal: no symptoms reported Genitourinary: no symptoms reported Musculoskeletal: see HPI Skin: no symptoms reported Psychiatric/Neurological: See HPI; Denies Headache, Denies Numbness, Denies Paresthesia, Denies Seizure Hematologic/Lymphatic: No Symptoms Reported Past Mzxdxqg-Aeuwpa-Olreyk Hx Patient Social History Smoking Status: Former Smoker Type Used: Cigarettes Former Smoker, Quit: Apr 16, 1985 2nd Hand Smoke Exposure: No Recent Hopitalizations: No Immunizations Up To Date Tetanus Booster (TDap): More than 5yrs Date of Pneumonia Vaccine: Aug 21, 2017 Seasonal Allergies Seasonal Allergies: No Past Medical History Surgeries: Yes (4 VESSEL CABG; AAA REPAIR WITH STENT; BACK SURGERY ) Cardiac, CABG, Orthopedic, Vascular Surgery Respiratory: Yes ( STATES PT WAS PRESCRIBED O2 FOR HOME USE, BUT NON- COMPLIANT) Currently Using CPAP: No Cardiac: Yes (AAA STENT; CABG; CHF) Aneurysm, Coronary Artery Disease, High Cholesterol, Hypertension Neurological: Yes (TRIGEMINAL NEURALGIA) Reproductive Disorders: No Genitourinary: Yes (FREQUENCY , CHRONIC KIDNEY DZ, ) Gastrointestinal: Yes Chronic Constipation Musculoskeletal: Yes (STENOSIS) Chronic Back Pain, Spasms Endocrine: No Diabetes, Non-Insulin dep HEENT: Yes (GLASSES) Cataract, Glaucoma Loss of Vision: Bilateral Hearing Impairment: Hard of Hearing Cancer: No Psychosocial: No Integumentary: No Blood Disorders: No Adverse Reaction/Blood Tranf: No Family Medical History Patient reports no known family medical history. Physical Exam Vital Signs Vital Signs - First Documented 08/07/18 14:29 Temp 99.1 Pulse 107 Resp 24 B/P (MAP) 72/ Pulse Ox 97 O2 Delivery Nasal Cannula O2 Flow Rate 101.00 Capillary Refill : Height, Weight, BMI Height: 6'1.00" Weight: 230lbs. 5.0oz. 104.840573sm; 30.0 BMI Method:Stated General Appearance: No Apparent Distress, WD/WN, Other (MILDLY LETHARGIC, DOES FALL ASLEEP VERY EASILY--MID SENTENCE, BUT EASILY AWAKENS AND ABLE TO ANSWER QUESTIONS, THEN QUICKLY FALLS BACK ASLEEP) HEENT: Other (EDENTULOUS) Neck: JVD Respiratory: No Accessory Muscle Use, No Respiratory Distress, Decreased Breath Sounds (IN BASES); No Rales, No Rhonci, No Wheezing Cardiovascular: Regular Rate, Rhythm, Systolic Murmur (2/6), Extra Beats ( FREQUENT ECTOPY) Gastrointestinal: Non Tender, Soft Extremity: Non Tender, No Calf Tenderness, Pedal Edema (TRACE ON RIGHT, 2+ ON LEFT, BUT HAS SCARS C/W VEIN HARVEST FOR CABG ON LEFT. ) Neurologic/Psychiatric: Alert (BUT DROWSY), Oriented x3 (BUT HAS LIMITED MEMORY AND IS POOR HISTORIAN), No Motor/Sensory Deficits (GROSSLY INTACT. ), real estate investment analyst II-XII Norm as Tested Skin: Normal Color, Warm/Dry Progress/Results/Core Measures Suspected Sepsis SIRS Temperature: Pulse: Respiratory Rate: Laboratory Tests 08/07/18 15:07: White Blood Count 17.5H Blood Pressure / Mean: Laboratory Tests 08/07/18 15:07: Creatinine 1.67H, INR Comment 1.3, Platelet Count 271, Total Bilirubin 0.7 Results/Orders Lab Results Laboratory Tests Test 08/07/18 14:41 08/07/18 15:07 08/07/18 16:10 08/07/18 16:19 Range/Units Glucometer 321 H 70-110 MG/DL White Blood Count 17.5 H 4.3-11.0 10^3/uL Red Blood Count 3.32 L 4.35-5.85 10^6/uL Hemoglobin 10.3 L 13.3-17.7 G/DL Hematocrit 31 L 40-54 % Mean Corpuscular Volume 94 80-99 FL Mean Corpuscular Hemoglobin 31 25-34 PG Mean Corpuscular Hemoglobin Concent 33 32-36 G/DL Red Cell Distribution Width 19.2 H 10.0-14.5 % Platelet Count 271 130-400 10^3/uL Mean Platelet Volume 10.2 7.4-10.4 FL Neutrophils (%) (Auto) 94 H 42-75 % Lymphocytes (%) (Auto) 1 L 12-44 % Monocytes (%) (Auto) 5 0-12 % Eosinophils (%) (Auto) 0 0-10 % Basophils (%) (Auto) 0 0-10 % Neutrophils # (Auto) 16.4 H 1.8-7.8 X 10^3 Lymphocytes # (Auto) 0.2 L 1.0-4.0 X 10^3 Monocytes # (Auto) 0.9 0.0-1.0 X 10^3 Eosinophils # (Auto) 0.0 0.0-0.3 10^3/uL Basophils # (Auto) 0.0 0.0-0.1 10^3/uL Neutrophils % (Manual) 96 % Lymphocytes % (Manual) 1 % Monocytes % (Manual) 0 % Eosinophils % (Manual) 0 % Basophils % (Manual) 0 % Band Neutrophils 3 % Blood Morphology Comment NORMAL Prothrombin Time 16.3 H 12.2-14.7 SEC INR Comment 1.3 0.8-1.4 Activated Partial Thromboplast Time 32 24-35 SEC Sodium Level 137 135-145 MMOL/L Potassium Level 4.7 3.6-5.0 MMOL/L Chloride Level 96 L 98-107 MMOL/L Carbon Dioxide Level 25 21-32 MMOL/L Anion Gap 16 H 5-14 MMOL/L Blood Urea Nitrogen 37 H 7-18 MG/DL Creatinine 1.67 H 0.60-1.30 MG/DL Estimat Glomerular Filtration Rate 40 BUN/Creatinine Ratio 22 Glucose Level 322 H 70-105 MG/DL Calcium Level 9.2 8.5-10.1 MG/DL Corrected Calcium 9.5 8.5-10.1 MG/DL Magnesium Level 1.3 L 1.8-2.4 MG/DL Total Bilirubin 0.7 0.1-1.0 MG/DL Aspartate Amino Transf (AST/SGOT) 22 5-34 U/L Alanine Aminotransferase (ALT/SGPT) 23 0-55 U/L Alkaline Phosphatase 72 40-136 U/L Troponin I 0.53 *H <0.30 NG/ML B-Type Natriuretic Peptide 4135.6 H <100.0 PG/ML Total Protein 6.7 6.4-8.2 GM/DL Albumin 3.6 3.2-4.5 GM/DL Urine Color YELLOW Urine Clarity CLEAR Urine pH 6 5-9 Urine Specific [place] 1.010 L 1.016-1.022 Urine Protein 1+ H NEGATIVE Urine Glucose (UA) NEGATIVE NEGATIVE Urine Ketones NEGATIVE NEGATIVE Urine Nitrite NEGATIVE NEGATIVE Urine Bilirubin NEGATIVE NEGATIVE Urine Urobilinogen NORMAL NORMAL MG/DL Urine Leukocyte Esterase NEGATIVE NEGATIVE Urine RBC (Auto) 1+ H NEGATIVE Urine RBC 5-10 H /HPF Urine WBC RARE /HPF Urine Crystals NONE /LPF Urine Bacteria NEGATIVE /HPF Urine Casts NONE /LPF Urine Mucus SMALL H /LPF Urine Culture Indicated NO Blood Gas Puncture Site LEFT BRACHIAL Blood Gas Patient Temperature 98.2 Arterial Blood pH 7.61 *H 7.37-7.43 Arterial Blood Partial Pressure CO2 23 L 35-45 MMHG Arterial Blood Partial Pressure O2 95 H 79-93 MMHG Arterial Blood HCO3 24 23-27 MMOL/L Arterial Blood Total CO2 24.3 21.0-31.0 MMOL/L Arterial Blood Oxygen Saturation 99 94-100 % Arterial Blood Base Excess 1.8 -2.5-2.5 MMOL/L Wilmer Test NA Blood Gas Ventilator Setting NO Blood Gas Inspired Oxygen 4L My Orders Orders - HERMELINDA ANDERSON DO Accucheck Stat ONCE (08/07/18 14:40) Saline Lock/Iv-Start (08/07/18 14:40) Ekg Tracing (08/07/18 14:40) O2 (08/07/18 14:40) Monitor-Rhythm Ecg Trace Only (08/07/18 14:40) Arterial Blood Gas (08/07/18 16:19) BNP (08/07/18 14:40) Cbc With Automated Diff (08/07/18 14:40) Comprehensive Metabolic Panel (08/07/18 14:40) Magnesium (08/07/18 14:40) Protime With Inr (08/07/18 14:40) Partial Thromboplastin Time (08/07/18 14:40) Troponin I (08/07/18 14:40) Ua Culture If Indicated (08/07/18 14:40) Chest 1 View, Ap/Pa Only (08/07/18 14:40) Manual Differential (08/07/18 15:07) Furosemide Injection (Lasix Injection) (08/07/18 16:00) Magnesium 1 Gm/100 Ml Ivpb (Magnesium Russell (08/07/18 16:15) Arterial Blood Draw (08/07/18 ) Medications Given in ED Current Medications Medications Dose Ordered Sig/Juan Route Start Time Stop Time Status Last Admin Dose Admin Furosemide 40 mg ONCE ONCE IVP 08/07/18 16:00 08/07/18 16:22 DC 08/07/18 16:28 40 MG Vital Signs/I&O 08/07/18 08/07/18 08/07/18 14:29 14:30 18:05 Temp 99.1 98.2 Pulse 107 87 Resp 24 18 B/P (MAP) 72/ 129/102 (111) Pulse Ox 97 96 95 O2 Delivery Nasal Cannula Nasal Cannula Nasal Cannula O2 Flow Rate 101.00 3.00 3.00 Capillary Refill : Progress Note : Progress Note ACCUCHECK 321 ON ARRIVAL O2 SAT 88% ON ROOM AIR ON ARRIVAL--UP TO 94% ON 2L/NC NO DETERIORATION IN PT'S CONDITION DURING ER STAY. ECG Initial ECG Impression Date: Aug 07, 2018 Initial ECG Impression Time: 14:43 Initial ECG Rate: 107 Initial ECG Rhythm: Normal Sinus (MULTIPLE PVC'S) Initial ECG Comparisson: Unchanged Diagnostic Imaging Comments CXR--NO ACUTE PROCESS, CARDIOMEGALY--PER RADIOLOGIST REPORT @ 1540 Reviewed: Reviewed by Me Departure Communication (Admissions) 1630--ATTEMPTING TO CONTACT DR. COLBERT, NO ANSWER AT OFFICE OR ON CELL AND UNABLE TO LEAVE MESSAGE 1630--SPOKE WITH DR. KHAN, ACCEPTS PT FOR ADMIT. ADVISES STACEY AT THIS TIME 1635--CALLED DR. SOTELO' OFFICE, NO ANSWER 163--CALLED DR. OLIVAS, SHE WILL ATTEMPT TO CONTACT DR. COLBERT AND HAVE HER CALL ER. 1700--SPOKE WITH DR. COLBERT, ACCEPTS PT FOR ADMIT OR WILL SEE IN CONSULT Impression Primary Impression: Elevated troponin Additional Impressions: ELEVATED BNP Hypoxia Renal insufficiency Hypomagnesemia NIDDM Disposition: ADMITTED INPATIENT Condition: Stable Admissions Decision to Admit Reason: Admit from ER (General) Decision to Admit/Date: Aug 07, 2018 Time/Decision to Admit Time: 16:30 Departure-Patient Inst. Referrals: MAGED COLBERT DO (PCP/Family) Primary Care Physician HERMELINDA ANDERSON DO Aug 07, 2018 14:46
--- NOTE | 2018-08-07 15:17 | Diagnostic Imaging Report ---
Indication: Increasing low back pain as well as low oxygen levels and shortness of breath. Time of exam:2:59 PM Correlation is made with prior study from 04/27/2018. The heart is enlarged but stable. There are changes of median sternotomy and CABG. No failure is seen. The pulmonary vascularity is normal. No significant infiltrate is seen. There is no effusion or pneumothorax. Impression: No acute cardiopulmonary process is detected. Dictated by: Dictated on workstation # [id number]
[2018-08-07 15:18] LABS: BASOPHILS % (AUTO) 0 % (0-10); EOSINOPHILS % (AUTO) 0 % (0-10); HEMATOCRIT 31 % (40-54); HEMOGLOBIN 10.3 G/DL (13.3-17.7); LYMPHOCYTES # (AUTO) 0.2 X 10^3 (1.0-4.0); LYMPHOCYTES % (AUTO) 1 % (12-44); MEAN CORPUSCULAR HEMOGLOBIN 31 PG (25-34); MEAN CORPUSCULAR HGB CONC 33 G/DL (32-36); MEAN CORPUSCULAR VOLUME 94 FL (80-99); MEAN PLATELET VOLUME 10.2 FL (7.4-10.4); MONOCYTES # (AUTO) 0.9 X 10^3 (0.0-1.0); MONOCYTES % (AUTO) 5 % (0-12); NEUTROPHILS # (AUTO) 16.4 X 10^3 (1.8-7.8); NEUTROPHILS % (AUTO) 94 % (42-75); PLATELET COUNT 271 10^3/uL (130-400); RED BLOOD COUNT 3.32 10^6/uL (4.35-5.85); RED CELL DISTRIBUTION WIDTH 19.2 % (10.0-14.5); WHITE BLOOD COUNT 17.5 10^3/uL (4.3-11.0)
[2018-08-07 15:34] LABS: INR 1.3 (0.8-1.4); PROTHROMBIN TIME PATIENT 16.3 SEC (12.2-14.7)
[2018-08-07 15:37] LABS: BAND NEUTROPHILS 3 %; BASOPHILS % (MANUAL) 0 %; EOSINOPHILS % (MANUAL) 0 %; LYMPHOCYTES % (MANUAL) 1 %; MONOCYTES % (MANUAL) 0 %; NEUTROPHILS % (MANUAL) 96 %; RBC MORPH NORMAL
[2018-08-07 15:43] LABS: ALBUMIN 3.6 GM/DL (3.2-4.5); BILIRUBIN,TOTAL 0.7 MG/DL (0.1-1.0); CALCIUM 9.2 MG/DL (8.5-10.1); CREATININE SERUM 1.67 MG/DL (0.60-1.30); MAGNESIUM 1.3 MG/DL (1.8-2.4); POTASSIUM 4.7 MMOL/L (3.6-5.0); TOTAL PROTEIN 6.7 GM/DL (6.4-8.2)
[2018-08-07] MEDS ORDERED: FUROSEMIDE 40 MG/4 ML INJ (LASIX) IVP ONE (16:00)
[2018-08-07 16:19] LABS: BILIRUBIN,URINE NEGATIVE (NEGATIVE); CLARITY,URINE CLEAR; COLOR,URINE YELLOW; GLUCOSE, URINE (UA) NEGATIVE (NEGATIVE); KETONES,URINE NEGATIVE (NEGATIVE); LEUKOCYTE ESTERASE ,URINE NEGATIVE (NEGATIVE); NITRITE,URINE NEGATIVE (NEGATIVE); PH,URINE 6 (5-9); PROTEIN,URINE 1+ (NEGATIVE); UROBILINOGEN,URINE NORMAL (NORMAL)
[2018-08-07 16:26] LABS: ABG BASE EXCESS 1.8 MMOL/L (-2.5-2.5); ABG OXYGEN SATURATION 99 % (94-100); ABG PCO2 23 MMHG (35-45); ABG PO2 95 MMHG (79-93); ABG TCO2 24.3 MMOL/L (21.0-31.0)
[2018-08-07 16:28] LABS: ABG PH 7.61 (7.37-7.43); INSPIRED O2 4L; PATIENT TEMP 98.2; VENTILATOR NO
[2018-08-07] MEDS: MAGNESIUM 1 GM/100 ML IVPB 100 ML IV SCH ×3 (16:28→22:15)
[2018-08-07 16:29] LABS: BACTERIA,URINE NEGATIVE /HPF; WBC,URINE RARE /HPF
[2018-08-07 18:05] VITALS: BP 129/102
[2018-08-07] MEDS ORDERED: morphine INJ 4 MG/ML 1 ML (VIAL/SYRINGE) IV PRN (18:30)
[2018-08-07] MEDS ORDERED: CATHETER FLUSH 10 ML SYR IV PRN (18:30)
[2018-08-07] MEDS ORDERED: NITROGLYCERIN 0.4 MG SL TABS BTL 25'S SL PRN (18:30)
[2018-08-07] MEDS ORDERED: meTOprolol 5 MG/5 ML (LOPRESSOR) VIAL IV NR (18:45)
[2018-08-07 19:00] VITALS: BP 96/71
--- NOTE | 2018-08-07 19:38 | Consultation-Cardiology ---
HPI-Cardiology Cardiology Consultation Date of Consultation 08/07/18 Date of Admission Time Seen by Provider: 19:32 Indication: Elevated troponin level HPI 78 years old gentleman with history of coronary artery disease, history of hypotension. 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 He was receiving therapy when he was noted to be hypoxemic and tachycardic. He denied any chest pain. No palpitation. No syncope but having significant weakness and confusion. No fever or chills. Brought to the emergency room and he was noted to have elevated BNP level and troponin level. Upon my evaluation was laying down in bed, denied any active pain. Home Medications & Allergies Allergies: Coded Allergies: No Known Drug Allergies (Unverified , 04/16/18) Home Medication List Reviewed: Yes [id number] Hx Patient Social History Marital Status: Employed/Student: retired Alcohol Use: Denies Use Recreational Drug Use: No Smoking Status: Former Smoker Type Used: Cigarettes 2nd Hand Smoke Exposure: No Recent Foreign Travel: No Recent Infectious Disease Expo: No Recent Hopitalizations: No Immunizations Up To Date Tetanus Booster (TDap): More than 5yrs Date of Pneumonia Vaccine: Aug 21, 2017 Past Medical History Past medical history as described below Family Medical History Family Medical Hx Noncontributory to his current condition Family History: Patient reports no known family medical history. Review of Systems Constitutional: see HPI, malaise, weakness EENTM: see HPI, no symptoms reported Respiratory: see HPI; No cough, No dyspnea on exertion, No hemoptysis, No orthopnea, No phlegm, No short of breath, No stridor, No wheezing, No other Cardiovascular: see HPI; No chest pain, No edema, No Hx of Intervention, No palpitations, No syncope, No vascular heart diseas, No other Gastrointestinal: no symptoms reported, see HPI Genitourinary: no symptoms reported, see HPI Musculoskeletal: see HPI, other (Left leg paralysis) Skin: no symptoms reported, see HPI Psychiatric/Neurological: No Symptoms Reported, See HPI Reviewed Test Results Reviewed Test Results Lab Laboratory Tests Test 08/07/18 14:41 08/07/18 15:07 08/07/18 16:10 08/07/18 16:19 Range/Units Glucometer 321 H 70-110 MG/DL White Blood Count 17.5 H 4.3-11.0 10^3/uL Red Blood Count 3.32 L 4.35-5.85 10^6/uL Hemoglobin 10.3 L 13.3-17.7 G/DL Hematocrit 31 L 40-54 % Mean Corpuscular Volume 94 80-99 FL Mean Corpuscular Hemoglobin 31 25-34 PG Mean Corpuscular Hemoglobin Concent 33 32-36 G/DL Red Cell Distribution Width 19.2 H 10.0-14.5 % Platelet Count 271 130-400 10^3/uL Mean Platelet Volume 10.2 7.4-10.4 FL Neutrophils (%) (Auto) 94 H 42-75 % Lymphocytes (%) (Auto) 1 L 12-44 % Monocytes (%) (Auto) 5 0-12 % Eosinophils (%) (Auto) 0 0-10 % Basophils (%) (Auto) 0 0-10 % Neutrophils # (Auto) 16.4 H 1.8-7.8 X 10^3 Lymphocytes # (Auto) 0.2 L 1.0-4.0 X 10^3 Monocytes # (Auto) 0.9 0.0-1.0 X 10^3 Eosinophils # (Auto) 0.0 0.0-0.3 10^3/uL Basophils # (Auto) 0.0 0.0-0.1 10^3/uL Neutrophils % (Manual) 96 % Lymphocytes % (Manual) 1 % Monocytes % (Manual) 0 % Eosinophils % (Manual) 0 % Basophils % (Manual) 0 % Band Neutrophils 3 % Blood Morphology Comment NORMAL Prothrombin Time 16.3 H 12.2-14.7 SEC INR Comment 1.3 0.8-1.4 Activated Partial Thromboplast Time 32 24-35 SEC Sodium Level 137 135-145 MMOL/L Potassium Level 4.7 3.6-5.0 MMOL/L Chloride Level 96 L 98-107 MMOL/L Carbon Dioxide Level 25 21-32 MMOL/L Anion Gap 16 H 5-14 MMOL/L Blood Urea Nitrogen 37 H 7-18 MG/DL Creatinine 1.67 H 0.60-1.30 MG/DL Estimat Glomerular Filtration Rate 40 BUN/Creatinine Ratio 22 Glucose Level 322 H 70-105 MG/DL Calcium Level 9.2 8.5-10.1 MG/DL Corrected Calcium 9.5 8.5-10.1 MG/DL Magnesium Level 1.3 L 1.8-2.4 MG/DL Total Bilirubin 0.7 0.1-1.0 MG/DL Aspartate Amino Transf (AST/SGOT) 22 5-34 U/L Alanine Aminotransferase (ALT/SGPT) 23 0-55 U/L Alkaline Phosphatase 72 40-136 U/L Troponin I 0.53 *H <0.30 NG/ML B-Type Natriuretic Peptide 4135.6 H <100.0 PG/ML Total Protein 6.7 6.4-8.2 GM/DL Albumin 3.6 3.2-4.5 GM/DL Urine Color YELLOW Urine Clarity CLEAR Urine pH 6 5-9 Urine Specific [place] 1.010 L 1.016-1.022 Urine Protein 1+ H NEGATIVE Urine Glucose (UA) NEGATIVE NEGATIVE Urine Ketones NEGATIVE NEGATIVE Urine Nitrite NEGATIVE NEGATIVE Urine Bilirubin NEGATIVE NEGATIVE Urine Urobilinogen NORMAL NORMAL MG/DL Urine Leukocyte Esterase NEGATIVE NEGATIVE Urine RBC (Auto) 1+ H NEGATIVE Urine RBC 5-10 H /HPF Urine WBC RARE /HPF Urine Crystals NONE /LPF Urine Bacteria NEGATIVE /HPF Urine Casts NONE /LPF Urine Mucus SMALL H /LPF Urine Culture Indicated NO Blood Gas Puncture Site LEFT BRACHIAL Blood Gas Patient Temperature 98.2 Arterial Blood pH 7.61 *H 7.37-7.43 Arterial Blood Partial Pressure CO2 23 L 35-45 MMHG Arterial Blood Partial Pressure O2 95 H 79-93 MMHG Arterial Blood HCO3 24 23-27 MMOL/L Arterial Blood Total CO2 24.3 21.0-31.0 MMOL/L Arterial Blood Oxygen Saturation 99 94-100 % Arterial Blood Base Excess 1.8 -2.5-2.5 MMOL/L Wilmer Test NA Blood Gas Ventilator Setting NO Blood Gas Inspired Oxygen 4L Physical Exam Vital Signs Vital Signs - First Documented 08/07/18 14:29 Temp 99.1 Pulse 107 Resp 24 B/P (MAP) 72/ Pulse Ox 97 O2 Delivery Nasal Cannula O2 Flow Rate 101.00 Capillary Refill : Less Than 3 Seconds Height, Weight, BMI Height: 6'1.00" Weight: 206lbs. 0.0oz. 93.400270kw; 27.2 BMI Method:Stated General Appearance: WD/WN, Mild Distress Eyes: Bilateral Eye Normal Inspection, Bilateral Eye PERRL, Bilateral Eye EOMI HEENT: PERRL/EOMI, TMs Normal, Normal ENT Inspection, Pharynx Normal Neck: Full Range of Motion, Normal Inspection, Non Tender, Supple, Carotid Bruit Respiratory: Chest Non Tender, Lungs Clear, Normal Breath Sounds, No Accessory Muscle Use, No Respiratory Distress Cardiovascular: No Edema, No JVD, Normal Peripheral Pulses, Systolic Murmur, Gallop/S3 Gastrointestinal: Normal Bowel Sounds, No Organomegaly, No Pulsatile Mass, Non Tender, Soft Back: Normal Inspection Extremity: Normal Capillary Refill, Normal Inspection, Other (Left leg edema) Neurologic/Psychiatric: Alert, Other (Disoriented to time and person, left leg paralysis) Skin: Normal Color, Warm/Dry Lymphatic: No Adenopathy A/P-Cardiology Admission Diagnosis Hypoxemia Elevated troponin level Coronary artery disease Hypotension Assessment/Plan Elevated troponin level, extensive cardiac history, probably progression of his underlying coronary artery disease. Admitted to the hospital and will continue to monitor the trend. Hypoxemia, unknown etiology, chest x-ray did not show any acute abnormality, had mild leukocytosis which can be secondary to steroids. Coronary artery disease, history of CABG 4 done over 10 years ago, has been following with Dr. Archer. Abdominal aortic aneurysm status post recent repair done at [facility]. I will try to obtain copy of his records. Hypotension, patient has history of borderline hypo-tension in the past. Chronic steroid use, maintained on prednisone 20 mg daily, I'll start him on a stress dose of steroids and monitor his tolerance and response Elevated BNP, no previous history of heart failure, had S3 present, frequent PVCs. I will evaluate 2-D echocardiogram. Status post recent spine surgery, done about 3 months ago. Postoperatively he has been having paralysis in his left leg. Patient has been receiving therapy. Diabetes mellitus, maintained on metformin Confusion, patient has underlying mild confusion that appeared to be worsening. Discussed management plan with Dr. Sheriff and Dr. Xie, will start him on heparin drip with bolus, blood cultures and lactic acid, start empiric vancomycin and IV fluid for now and monitor fluid balance closely SIA KHAN MD Aug 07, 2018 7:37 pm
[2018-08-07 20:00] VITALS: BP 94/67
[2018-08-07] MEDS ORDERED: VANCOMYCIN INJECTION 1,500 MG in NS IV 500 ML 500 ML IV SCH (20:00)
[2018-08-07] MEDS ORDERED: HEParin DRIP 25000 UNIT/500ML 500 ML IV SCH (20:00)
[2018-08-07] MEDS ORDERED: NS IV 500 ML 500 ML IV SCH (20:00)
[2018-08-07] MEDS ORDERED: HEParin 1000 UNIT/ML (10ML VIAL) FOR BOLUS IV PRN (20:00)
[2018-08-07 20:32] LABS: HEMOGLOBIN 10.4 G/DL (13.3-17.7); MEAN PLATELET VOLUME 10.5 FL (7.4-10.4); RED BLOOD COUNT 3.38 10^6/uL (4.35-5.85); RED CELL DISTRIBUTION WIDTH 19.2 % (10.0-14.5); WHITE BLOOD COUNT 14.7 10^3/uL (4.3-11.0)
[2018-08-07 20:43] LABS: INR 1.3 (0.8-1.4)
[2018-08-07 21:00] VITALS: BP 93/66
[2018-08-07] MEDS ORDERED: inSUlin ASPART (NovoLOG) 1 UNIT/0.01 ML (CHARGE PER UNIT) SC SCH (21:00)
[2018-08-07] MEDS ORDERED: MAGNESIUM 1 GM/100 ML IVPB 200 ML IV ONE (21:02)
[2018-08-07] MEDS: methylPREDNISolone 40 MG/ML (Solu-MEDROL) VIAL IV SCH (21:11)
[2018-08-07 22:00] VITALS: BP 93/67
[2018-08-07] MEDS: CATHETER FLUSH 10 ML SYR IV SCH (22:02)
[2018-08-07 23:00] VITALS: BP 97/76
[2018-08-08] VITALS (11 sets, daily range): BP systolic 80–104; BP diastolic 36–71
[2018-08-08] MEDS: methylPREDNISolone 40 MG/ML (Solu-MEDROL) VIAL IV SCH ×2 (00:25→05:12)
[2018-08-08] MEDS ORDERED: NS IV 500 ML 500 ML IV ONE (00:45)
[2018-08-08] MEDS: inSUlin ASPART (NovoLOG) 1 UNIT/0.01 ML (CHARGE PER UNIT) SC SCH ×2 (01:15→04:24)
[2018-08-08 03:14] LABS: BASOPHILS % (AUTO) 0 % (0-10); EOSINOPHILS % (AUTO) 0 % (0-10); HEMATOCRIT 34 % (40-54); HEMOGLOBIN 11.3 G/DL (13.3-17.7); LYMPHOCYTES # (AUTO) 0.3 X 10^3 (1.0-4.0); LYMPHOCYTES % (AUTO) 2 % (12-44); MEAN CORPUSCULAR HEMOGLOBIN 31 PG (25-34); MEAN CORPUSCULAR HGB CONC 33 G/DL (32-36); MEAN CORPUSCULAR VOLUME 93 FL (80-99); MEAN PLATELET VOLUME 10.8 FL (7.4-10.4); MONOCYTES # (AUTO) 0.3 X 10^3 (0.0-1.0); MONOCYTES % (AUTO) 2 % (0-12); NEUTROPHILS # (AUTO) 13.5 X 10^3 (1.8-7.8); NEUTROPHILS % (AUTO) 96 % (42-75); PLATELET COUNT 244 10^3/uL (130-400); RED BLOOD COUNT 3.68 10^6/uL (4.35-5.85); RED CELL DISTRIBUTION WIDTH 19.4 % (10.0-14.5); WHITE BLOOD COUNT 14.1 10^3/uL (4.3-11.0)
[2018-08-08 03:31] LABS: ALBUMIN 3.5 GM/DL (3.2-4.5); CALCIUM 9.2 MG/DL (8.5-10.1); CREATININE SERUM 1.88 MG/DL (0.60-1.30); MAGNESIUM 2.4 MG/DL (1.8-2.4); PHOSPHORUS 3.7 MG/DL (2.3-4.7); POTASSIUM 4.4 MMOL/L (3.6-5.0); TOTAL PROTEIN 6.8 GM/DL (6.4-8.2)
[2018-08-08] MEDS ORDERED: inSUlin ASPART (NovoLOG) 1 UNIT/0.01 ML (CHARGE PER UNIT) SC SCH (04:00)
[2018-08-08] MEDS ORDERED: NS (IVPB) 250 ML IV ONE ×2 (04:15→06:15)
[2018-08-08] MEDS: CATHETER FLUSH 10 ML SYR IV SCH (04:26)
[2018-08-08] MEDS ORDERED: POTASSIUM CL 10MEQ/50ML IVPB 50 ML IV SCH (06:00)
[2018-08-08] MEDS ORDERED: KCL 20 MEQ TAB (K-DUR) PO SCH (06:00)
[2018-08-08] MEDS ORDERED: MAGNESIUM 1 GM/100 ML IVPB 100 ML IV SCH (06:00)
[2018-08-08] MEDS ORDERED: NS IV 500 ML 500 ML IV SCH (06:15)
--- NOTE | 2018-08-08 07:54 | Diagnostic Imaging Report ---
INDICATE: Elevated troponin. Shortness of breath. Comparison with 08/07/2018. FINDINGS: Cardiomegaly with median sternotomy changes again noted. There is prominent pulmonary vasculature with some development of bilateral interstitial infiltrates. No consolidated infiltrates are present. No definite pleural effusions. IMPRESSION: 1. Postoperative residue with cardiomegaly. 2. There does appear to be developing mild pulmonary edema since previous exam. Dictated by: Dictated on workstation # [id number]
--- NOTE | 2018-08-08 08:04 | Cardiology Discharge Summary ---
Diagnosis/Chief Complaint Date of Admission Aug 07, 2018 at 16:30 Date of Discharge August 08, 2018 Admission Diagnosis Hypoxemia Elevated troponin level Coronary artery disease Hypotension Discharge Diagnosis Non-ST elevation myocardial infarction Congestive heart failure, acute on chronic left ventricular systolic dysfunction, ischemic cardiomyopathy Hypotensive shock Acute renal failure Chief Complaint/HPI Chief Complaint/HPI 78-year-old gentleman with extensive history, had recent back surgery, patient had paralysis of his left leg. He was receiving physical therapy, noted to be more tachycardic and short of breath at home, he was brought to the emergency room. Upon my evaluation patient was confused. Denied any chest pain. Denied any palpitation, denied any syncope or near syncopal episodes. He was disoriented to time and person. Evaluated echocardiogram which showed ejection fraction 10-15 percent Discharge Summary Hospital Course Hospital Course Hypotensive shock. Patient has been hypotensive, could not tolerate large amount of IV fluid support due to heart failure. Received small boluses. Received the stress dose of steroid, blood cultures were done, given IV vancomycin one dose, still hypotensive at this time. 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 Will require cardiac catheterization due to deterioration in the left ventricular function and elevated troponin Congestive heart failure, acute on chronic left ventricular systolic dysfunction , deterioration in the left ventricular function, echocardiogram showed ejection fraction 10-15 percent, severe tricuspid regurgitation, moderate to severe mitral regurgitation, pulmonary artery pressure of 40 mmHg, patient cannot tolerate beta blockers, ALEJANDRO inhibitor and/or ARB due to hypotension Acute renal failure, history of chronic renal insufficiency with baseline creatinine around 2. Receiving IV fluid Elevated liver enzymes. Probably due to hypotension History of abdominal aortic aneurysm, had endograft placed in [facility] in January 2018. Shortness of breath, elevated BNP, could not tolerate aggressive diuresis due to his current condition. I will start low-dose dobutamine and evaluate tolerance and response. Left leg paralysis secondary to recent surgery to the spine. Receiving physical therapy Diabetes mellitus, has been on metformin which was held on admission yesterday Patient has multi-organ failure, deterioration in her baseline status. I had a discussion with his and the patient, planning to transfer to a higher level of care, I discussed the management plan with Dr. Archer who accepted the patient Labs Laboratory Tests 08/07/18 14:41: Glucometer 321H 08/07/18 15:07: White Blood Count 17.5H, Red Blood Count 3.32L, Hemoglobin 10.3L, Hematocrit 31L , Red Cell Distribution Width 19.2H, Neutrophils (%) (Auto) 94H, Lymphocytes (% ) (Auto) 1L, Neutrophils # (Auto) 16.4H, Lymphocytes # (Auto) 0.2L, Prothrombin Time 16.3H, Chloride Level 96L, Anion Gap 16H, Blood Urea Nitrogen 37H, Creatinine 1.67H, Glucose Level 322H, Magnesium Level 1.3L, Troponin I 0.53*H, B -Type Natriuretic Peptide 4135.6H 08/07/18 16:10: Urine Specific [place] 1.010L, Urine Protein 1+H, Urine RBC (Auto) 1+H, Urine RBC 5-10H, Urine Mucus SMALLH 08/07/18 16:19: Arterial Blood pH 7.61*H, Arterial Blood Partial Pressure CO2 23L, Arterial Blood Partial Pressure O2 95H 08/07/18 20:15: White Blood Count 14.7H, Red Blood Count 3.38L, Hemoglobin 10.4L, Hematocrit 32L , Red Cell Distribution Width 19.2H, Mean Platelet Volume 10.5H, Prothrombin Time 16.0H, Lactic Acid Level 2.21*H, Troponin I 0.62*H 08/07/18 22:00: Glucometer 258H 08/07/18 23:00: Lactic Acid Level 2.77*H 08/08/18 00:42: Glucometer 264H 08/08/18 01:05: Activated Partial Thromboplast Time 158*H 08/08/18 03:00: White Blood Count 14.1H, Red Blood Count 3.68L, Hemoglobin 11.3L, Hematocrit 34L , Red Cell Distribution Width 19.4H, Mean Platelet Volume 10.8H, Neutrophils (% ) (Auto) 96H, Lymphocytes (%) (Auto) 2L, Neutrophils # (Auto) 13.5H, Lymphocytes # (Auto) 0.3L, Sodium Level 134L, Chloride Level 97L, Anion Gap 16H , Blood Urea Nitrogen 43H, Creatinine 1.88H, Glucose Level 231H, Lactic Acid Level 4.44*H, Aspartate Amino Transf (AST/SGOT) 96H, Alanine Aminotransferase ( ALT/SGPT) 96H, Troponin I 0.51*H 08/08/18 05:00: Lactic Acid Level 4.12*H 08/08/18 05:30: Activated Partial Thromboplast Time 75H Procedures None. Discharge Physical Examination Allergies: Coded Allergies: No Known Drug Allergies (Unverified , 04/16/18) Vitals & I&Os Vital Signs Date Time Temp Pulse Resp B/P (MAP) Pulse Ox O2 Delivery O2 Flow Rate FiO2 08/08/18 10:15 90 17 94 Nasal Cannula 3.00 08/08/18 04:00 98.0 General Appearance: Alert, Cooperative, Severe Distress HEENT: Atraumatic, PERRLA Respiratory: Normal Air Movement, Other (Bilateral rhonchi) Cardiovascular: Regular Rate, Normal S1, Normal S2, Other (Systolic murmur at the left sternal border) Abdominal: Normal Bowel Sounds, Soft, No Tenderness, No Hepatosplenomegaly, No Masses Extremities: No Clubbing, No Cyanosis, Normal Pulses, No Tenderness/Swelling, Other (edema of the left leg) Skin: No Rashes, No Breakdown, No Significant Lesion Neuro: Normal Speech, Other (And left leg paralysis) Psych/Mental Status: Mood NL, Other (Confused) Discharge Home Medications Reviewed and agree with Discharge Medication list on patient's Discharge Instruction sheet Instructions to Patient/Family Please see electronic discharge instructions given to patient. Clinical Quality Measures Admission Status Admission Status: Inpatient Order (span 2 midnights) Reason for Inpatient Admission: Acute myocardial infarction AMI/AHF: Ejection Fraction %: 10 Ejection Fraction: <40 (ALEJANDRO/ARB Indicated) D/C Inst. for HF given: Yes Reason ALEJANDRO-I/ARB not given: Hypotension Reason Beta-Mariam not given: CHF requiring IV diuretics/vasoac Reason Statin not given: Liver Disease ASA Given prior to admit: Yes DVT/VTE Risk/Contraindication: Risk Factor Score Per Nursin RFS Level Per Nursing on Admit: 4+=Very High SIA KHAN MD Aug 08, 2018 08:04
[2018-08-08] MEDS ORDERED: DOBUTamine 250 MG/20 ML (DOBUTREX) VIAL IV ONE (08:26)
[2018-08-08] MEDS ORDERED: NS (IVPB) 250 ML ONE (08:27)
[2018-08-08] MEDS ORDERED: SODIUM CHLORIDE IV SCH ×2 (08:30)
[2018-08-08] MEDS ORDERED: DOBUTAMINE IV SCH ×2 (08:30)
[2018-08-08] MEDS ORDERED: ASPIRIN E.C. 81 MG (ECOTRIN) TAB PO SCH (09:00)
[2018-08-09] MEDS ORDERED: TROUGH ORDER-PHARMACY XX NR (19:00)
--- NOTE | 2018-08-14 13:15 | Physician Query Clarification ---
PQ-Intro New Diagnosis Admission/Discharge Admission Date: Aug 07, 2018 at 16:30 Discharge Date: Aug 08, 2018 at 10:15 The medical record reflects the following clinical scenario: History/Risk Factors: NSTEMI, acute on chronic, systolic CHF, Acute renal failure, hypotensive shock Clinical Findings: lethargic, weakness, confusion O2 88%, blood cultures grew staph aureus, lactic 2.21, BNP 4135.6, Troponin 0.62 Treatment: IV lasix, IV solumedrol, IV vancomycin, IV Heparin Question: What condition best reflects the above clinical scenario? Please document below. 1. Staph aureus sepsis with NSTEMI, acute on chronic systolic CHF, acute renal failure and hypotensive shock 2. NSTEMI, acute on chronic systolic CHF, acute renal failure, hypotensive shock , sepsis ruled out 3. Other, with explanation of the clinical findings. 4. Clinically undetermined, no explanation for the clinical findings. PHYSICIAN RESPONSE What condition reflects above: 1 In responding to this query, please exercise your independent professional judgment. The purpose of this communication is to more accurately reflect the complexity of your patients condition. The fact that a question is asked does not imply that any particular answer is desired or expected. Thank you for your timely response to this clarification. Requestors name: Keegan THIS PHYSICIAN QUERY FORM IS A PERMANENT PART OF THE MEDICAL RECORD KEEGAN JONES Aug 14, 2018 13:15 SIA KHAN MD Aug 14, 2018 15:29
== END 2018-08-08 10:15 | disposition short-term general hospital (02) | DRG 871 ==
LOC: EDUNIT# 14:22 → ER 14:23 → ICU 16:30
PROVIDERS: ADMIT Internal Medicine Cardiovascular Disease; ATTEND Family Medicine
DX: A41.01 Sepsis due to Methicillin susceptible Staphylococcus aureus (principal); I21.4 Non-ST elevation (NSTEMI) myocardial infarction; I50.43 Acute on chronic combined systolic (congestive) and diastolic (congestive) heart failure; I25.5 Ischemic cardiomyopathy; R57.9 Shock, unspecified; N17.9 Acute kidney failure, unspecified; I13.0 Hypertensive heart and chronic kidney disease with heart failure and stage 1 through stage 4 chronic kidney disease, or unspecified chronic kidney disease; N18.9 Chronic kidney disease, unspecified; G83.14 Monoplegia of lower limb affecting left nondominant side; E11.9 Type 2 diabetes mellitus without complications; Z79.84 Long term (current) use of oral hypoglycemic drugs; I25.10 Atherosclerotic heart disease of native coronary artery without angina pectoris; I49.3 Ventricular premature depolarization; I08.1 Rheumatic disorders of both mitral and tricuspid valves; Z79.52 Long term (current) use of systemic steroids; Z95.1 Presence of aortocoronary bypass graft; Z87.891 Personal history of nicotine dependence
CPT/HCPCS: 36415; 36600; 71045; 80053; 80061; 81000; 82805; 82962; 83605; 83735; 83880; 84100; 84443; 84484; 85007; 85025; 85027; 85610; 85730; 87040; 87077; 87081; 87186; 93005; 93041; 93306; 96374